=== PATIENT | male | born 1950 | race Caucasian/White ===

== ENCOUNTER → 2018-03-18 11:28 | Outpatient (CLI) | payer MEDICARE, BC, SELFPAY ==
[2018-03-18 13:30] LABS: Add Manual Diff / Slide Review NO; Basophils Percent Auto 0.3 % (0-2); Eosinophils Percent Auto 1.4 % (2-4); Hematocrit 41.4 % (41-53); Hemoglobin 14.3 g/dL (13.5-17.5); Lymphocytes Percent Auto 24.6 % (25-40); Mean Corpuscular HGB Conc 34.4 % (30-36); Mean Corpuscular Hemoglobin 32.1 PG (26-34); Mean Corpuscular Volume 93.1 fL (80-100); Monocytes Percent Auto 7.8 % (3-14); Neutrophils Absolute Auto 3800 /uL (3000-5900); Neutrophils Percent Auto 65.9 % (50-75); Platelet Count 187 X10^3/uL (150-400); Red Blood Cell Count 4.45 X10^6/uL (4.5-5.9); Red Cell Distribution Width 13.9 % (11.6-14.8); White Blood Cell Count 5.8 X10^3/uL (4.5-11.0)
[2018-03-18 14:17] LABS: Alanine Aminotransferase 34 IU/L (21-72); Albumin 4.5 g/dL (3.5-5.0); Alkaline Phosphatase 65 U/L (38-126); Aspartate Aminotransferase 23 IU/L (17-59); BUN Creatinine Ratio 17.8 (6-22); Bilirubin Total 0.5 mg/dL (0.2-1.3); Blood Urea Nitrogen 16 mg/dL (9-20); C-Reactive Protein Quant < 0.5 mg/dL (<1.0); Calcium 9.2 mg/dL (8.4-10.2); Carbon Dioxide 29 mmol/L (22-32); Chloride 102 mmol/L (98-107); Erythrocyte Sedimentation Rate 1 MM/HR (0-15); Estimated Glomerular Filt Rate > 60.0 mL/min (>60); Globulin 2.3 g/dL (1.7-4.1); Glucose 84 mg/dL (80-110); HEMOLYSIS < 15 (0-50); Potassium 4.8 mmol/L (3.4-5.1); Sodium 140 mmol/L (137-145); Total Protein 6.8 g/dL (6.3-8.2)
== END ==
PROVIDERS: PCP Internal Medicine; Visit Provider Internal Medicine
DX: R22.2 Localized swelling, mass and lump, trunk (principal)
CPT/HCPCS: 36415; 80053; 85025; 85651; 86140

== ENCOUNTER → 2018-03-23 11:08 | Outpatient (CLI) | payer MEDICARE, BC, SELFPAY ==
--- NOTE | 2018-03-23 11:10 | DI.CT.S_ITS ---
PROCEDURE: CT ABDOMEN W CON INDICATIONS: abd wall mass TECHNIQUE: After the administration of intravenous contrast, 5 mm thick sections acquired from the diaphragm to the iliac crests. 5 mm coronal and sagittal reformats were performed. For radiation dose reduction, the following was used: automated exposure control, adjustment of mA and/or kV according to patient size. COMPARISON: None. FINDINGS: Image quality: Excellent. Lung bases: Lung bases are clear. Heart size is normal. Solid organs: Liver is normal in size and enhancement. Note is made of a 1.8 cm hepatic water density cyst seen on series 2 image 37. Gallbladder appears normal. Biliary system is non dilated. Pancreas enhances normally. Spleen is normal in size and enhancement. No adrenal nodules. Kidneys demonstrate normal size and enhancement, without hydronephrosis. Peritoneum and bowel: Bowel loops demonstrate normal wall thickness and caliber. No free fluid or air. Nodes and vessels: No retroperitoneal or mesenteric adenopathy by size criteria. Aorta and inferior vena cava are normal in size. Miscellaneous: No ventral hernias. At the right upper quadrant anterolaterally ACT surface marker was placed on the skin surface indicating the area of patient's clinical concern. A cutaneous or subcutaneous mass in this area is not found. Morphology of the body wall musculature is within normal limits in this area. No omental or visceral herniation at the body wall margin is identified. IMPRESSION: No underlying lipoma, body wall herniation, or body wall mass is identified in the area of current clinical concern at the right upper quadrant adjacent to the CT surface marker placed with the patient's assistance in localizing the concern. Normal striations of the body wall musculature are found, no area of underlying infection or neoplasm is identified. Dictated by: Jovany Díaz M.D. on 03/23/2018 at 12:23 Approved by: Jovany Díaz M.D. on 03/23/2018 at 12:26
== END ==
PROVIDERS: PCP Internal Medicine; Visit Provider Internal Medicine
DX: R22.2 Localized swelling, mass and lump, trunk (principal)
CPT/HCPCS: 74160; Q9967

== ENCOUNTER 2019-01-06 14:30 | Outpatient (RCR) | payer MEDICARE, OTHER, BC, SELFPAY ==
--- NOTE | 2018-01-07 07:00 | PT.OIE ---
Current Diagnoses Dizziness and giddiness (01/06/18) Past Medical History (Last Updated 01/06/18 @ 13:38 by Oneyda Daley, PT) Hernia (Acute) Plantar fasciitis of right foot (Acute) Skin cancer (Acute) Provider Visit Care Team Role Provider Type Sushant Boyle MD Primary Care Provider Physician Specialty: Internal Medicine Address: [address] [place] [address], [id number] Email: [email or web address] Leonard Danielle MD Attending Provider Physician Specialty: Ear, Nose, Throat Address: [address] [place] [address], [id number] Email: Physical Therapy Initial Evaluation PT-OP-A Visit Information Start: 01/06/18 07:25 Freq: Status: Active Protocol: Document 01/06/18 08:15 AMB (Rec: 01/06/18 15:27 AMB [email or web address]) Out-Patient Physical Therapy Visit Information Visit Information Visit Type Initial Evaluation Visit Note 60 visits per calendar year, 1 used previously. 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 No BPPV currently but a feeling of spinning and being off balance has continued a few times a week. Sometimes he can move his head and be fine, sometimes it causes dizzines. 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 Treatment Goals Patient/Caregiver Goals Reduce dizziness Prior Functional Status Baseline Function- ADL's Independent Baseline Function- Mobility Independent Current Functional Impairments (Reported) Functional Limitations- ADL's Unable to go up on ladders Personal Factors Other Personal Factors That May Effect Retiring soon Therapy/Recovery PT-OP-C Subjective Start: 01/06/18 07:25 Freq: Status: Active Protocol: Document 01/06/18 08:15 AMB (Rec: 01/06/18 08:26 AMB [id number]) OP-PT Subjective Patient Comments Patient Comments Dizziness episodes 3-4x/ week. Looking down, looking up, turning to the side all can increase dizziness for 5-10 seconds. Feels off balance and spinny. No falls in the last 6 months, has had some near falls. Avoids ladders. Patient Questionnaires ABC- Activity Specific Balance Confidence Scale ABC Score 76 ABC Functional Impairment 60 to <80% Impaired (Score 21- 40) Dizziness Handicap Inventory DHI Score 50 DHI Functional Impairment 40 to 59% Impaired (Score 40- 59) PT-OP-D Balance Start: 01/06/18 07:25 Freq: Status: Active Protocol: Document 01/06/18 08:15 AMB (Rec: 01/06/18 15:37 AMB [email or web address]) Balance Tests Single Limb Standing Single Limb- Right 10 seconds Single Limb- Left 10 seconds Semi-Tandem Standing Semi-Tandem Standing Balance EO 30 seconds. EO HT 30 seconds but dizzy. EC 20 seconds dizzy. PT-OP-E Functional Tests Start: 01/06/18 07:25 Freq: Status: Active Protocol: Document 01/06/18 08:15 AMB (Rec: 01/06/18 15:46 AMB [email or web address]) Functional Tests Dynamic Gait Index (DGI) Score 21 DGI Impairment Rating 1 to <20% Impaired (Score 20- 23) PT-OP-O Vestibular Start: 01/06/18 07:25 Freq: Status: Active Protocol: Document 01/06/18 08:15 AMB (Rec: 01/06/18 15:33 AMB [email or web address]) Vestibular Assessment Visual Testing Smooth Pursuits Horizontal WFL Smooth Pursuits Vertical WFL Saccades Horizontal WFL Saccades Vertical WFL Thrust Head Positive Bilateral Convergence Test WNL DVA (Line Degradation) 2 Positional Testing Cervical Vertigo Test Negative PT-OP-Q Treatments Start: 01/06/18 07:25 Freq: Status: Active Protocol: Document 01/06/18 08:15 AMB (Rec: 01/06/18 15:43 AMB [email or web address]) Neuro Re-Education Treatment Other Activities 2 Details NBOS HT 1 Details Stride stance bow with head turn Reps/Duration 6 PT-OP-T Assessment and Plan Start: 01/06/18 07:25 Freq: Status: Active Protocol: Document 01/06/18 08:15 AMB (Rec: 01/07/18 07:00 AMB [email or web address]) Physical Therapy Assessment Rehab Potential Rehabilitation Potential Good Evaluation Complexity Number of Personal Factors/Comorbidities 1-2 Number of Body Systems Impaired 1-2 Clinical Presentation at Evaluation Stable Impairments Impairments Balance Vestibular Goals 2 Impairment Balance Short Term Goal (STG) The patient will improve his DGI to 23/24. STG Duration 4 weeks Prison Goal (LTG) The patient will improve his single leg stance balance to 15 seconds. LTG Duration 8 weeks 1 Impairment Dizziness Short Term Goal (STG) The patient will walk with horizontal head turns without dizziness. STG Duration 4 weeks Prison Goal (LTG) The patient will perform a stand pivot turn without increasing dizziness. Assessment Summary Assessment The patient returns to the clinic for vestibular rehab. He does not currenty have BPPV , but has had intermittent dizziness with head movement since the successful treatment of his BPPV. He will benefit from a vestibular rehab program to compensate for his continued dizziness. Physical Therapy Plan Frequency and Duration Frequency of Treatment 1x/Week Duration of Treatment 8 weeks Plan of Care Start Date 01/06/18 Plan of Care End Date 03/03/18 Therapeutic Interventions Therapeutic Interventions Balance Training Home Exercise Program Manual Therapy Neuromuscular Re-education Self-Care/Home Management Therapeutic Activities Therapeutic Exercises Vestibular Rehabilitation Next Visit Focus/Plan Next Note Type Treatment Note Please Sign and Return: I have reviewed this Plan of Care and certify that the skilled therapy services above are required to meet the patient???s needs. Physician Signature Date Printed Name and Credentials Clinical Instructor Signature Printed Name and Credentials
--- NOTE | 2018-01-14 15:51 | PT.OTN ---
Current Diagnoses Dizziness and giddiness (01/14/18) Physical Therapy Treatment Note PT-OP-A Visit Information Start: 01/06/18 07:25 Freq: Status: Active Protocol: Document 01/14/18 13:45 AMB (Rec: 01/14/18 13:57 AMB [id number]) Out-Patient Physical Therapy Visit Information Visit Information Visit Type Treatment Note Visit Start Time 13:45 Visit Stop Time 14:30 Visit Number 2 Evaluation Information Evaluation Date 01/06/18 PT-OP-B Current Condition Start: 01/06/18 07:25 Freq: Status: Active Protocol: Document 01/06/18 08:15 AMB (Rec: 01/06/18 15:25 AMB [email or web address]) Current Condition History of Current Condition History of Current Condition 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 No BPPV currently but a feeling of spinning and being off balance has continued a few times a week. Sometimes he can move his head and be fine, sometimes it causes dizzines. 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 Treatment Goals Patient/Caregiver Goals Reduce dizziness Prior Functional Status Baseline Function- ADL's Independent Baseline Function- Mobility Independent Current Functional Impairments (Reported) Functional Limitations- ADL's Unable to go up on ladders Personal Factors Other Personal Factors That May Effect Retiring soon Therapy/Recovery PT-OP-C Subjective Start: 01/06/18 07:25 Freq: Status: Active Protocol: Document 01/14/18 13:45 AMB (Rec: 01/14/18 14:13 AMB [id number]) OP-PT Subjective Patient Comments Patient Comments Somewhat dizzy yesterday, looking to the left when sitting down. PT-OP-D Balance Start: 01/06/18 07:25 Freq: Status: Active Protocol: Document 01/06/18 08:15 AMB (Rec: 01/06/18 15:37 AMB [email or web address]) Balance Tests Single Limb Standing Single Limb- Right 10 seconds Single Limb- Left 10 seconds Semi-Tandem Standing Semi-Tandem Standing Balance EO 30 seconds. EO HT 30 seconds but dizzy. EC 20 seconds dizzy. PT-OP-E Functional Tests Start: 01/06/18 07:25 Freq: Status: Active Protocol: Document 01/06/18 08:15 AMB (Rec: 01/06/18 15:46 AMB [email or web address]) Functional Tests Dynamic Gait Index (DGI) Score 21 DGI Impairment Rating 1 to <20% Impaired (Score 20- 23) PT-OP-O Vestibular Start: 01/06/18 07:25 Freq: Status: Active Protocol: Document 01/06/18 08:15 AMB (Rec: 01/06/18 15:33 AMB [email or web address]) Vestibular Assessment Visual Testing Smooth Pursuits Horizontal WFL Smooth Pursuits Vertical WFL Saccades Horizontal WFL Saccades Vertical WFL Thrust Head Positive Bilateral Convergence Test WNL DVA (Line Degradation) 2 Positional Testing Cervical Vertigo Test Negative PT-OP-Q Treatments Start: 01/06/18 07:25 Freq: Status: Active Protocol: Document 01/14/18 13:45 AMB (Rec: 01/14/18 15:51 AMB [email or web address]) Neuro Re-Education Treatment Other Activities 5 Details gait with head turns Comments horizontal, vertical, diagonal 4 Details VOR2 Comments horizontal and diagonal semi tandem stance 3 Details VOR1 Comments semi tandem, NBOS foam, added background movement 2 Details NBOS HT 1 Details Stride stance bow with head turn Reps/Duration 6 PT-OP-T Assessment and Plan Start: 01/06/18 07:25 Freq: Status: Active Protocol: Document 01/14/18 13:45 AMB (Rec: 01/14/18 15:51 AMB [email or web address]) Physical Therapy Assessment Assessment Summary Assessment The patient needed rest breaks , but was able to tolerate all exercises well. Physical Therapy Plan Frequency and Duration Frequency of Treatment 1x/Week Duration of Treatment 8 weeks Plan of Care Start Date 01/06/18 Plan of Care End Date 03/03/18 Next Visit Focus/Plan Next Note Type Treatment Note Next Visit Plan Progress challenge, speed of head turns Please Sign and Return: I have reviewed this Plan of Care and certify that the skilled therapy services above are required to meet the patient?s needs. Physician Signature Date Printed Name and Credentials Clinical Instructor Signature Printed Name and Credentials
--- NOTE | 2018-01-20 06:59 | PT.OTN ---
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 No BPPV currently but a feeling of spinning and being off balance has continued a few times a week. Sometimes he can move his head and be fine, sometimes it causes dizzines. 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 Not sure if he was turning his head to not. He has difficulty doing the walking in the hallway exercise, as his hallways is not very long. PT-OP-D Balance Start: 01/06/18 07:25 Freq: Status: Active Protocol: Document 01/06/18 08:15 AMB (Rec: 01/06/18 15:37 AMB [email or web address]) Balance Tests Single Limb Standing Single Limb- Right 10 seconds Single Limb- Left 10 seconds Semi-Tandem Standing Semi-Tandem Standing Balance EO 30 seconds. EO HT 30 seconds but dizzy. EC 20 seconds dizzy. PT-OP-E Functional Tests Start: 01/06/18 07:25 Freq: Status: Active Protocol: Document 01/06/18 08:15 AMB (Rec: 01/06/18 15:46 AMB [email or web address]) Functional Tests Dynamic Gait Index (DGI) Score 21 DGI Impairment Rating 1 to <20% Impaired (Score 20- 23) PT-OP-O Vestibular Start: 01/06/18 07:25 Freq: Status: Active Protocol: Document 01/06/18 08:15 AMB (Rec: 01/06/18 15:33 AMB [email or web address]) Vestibular Assessment Visual Testing Smooth Pursuits Horizontal WFL Smooth Pursuits Vertical WFL Saccades Horizontal WFL Saccades Vertical WFL Thrust Head Positive Bilateral Convergence Test WNL DVA (Line Degradation) 2 Positional Testing Cervical Vertigo Test Negative PT-OP-Q Treatments Start: 01/06/18 07:25 Freq: Status: Active Protocol: Document 01/19/18 09:00 AMB (Rec: 01/20/18 06:59 AMB [email or web address]) Neuro Re-Education Treatment Other Activities 5 Details gait with head turns Comments horizontal, vertical, diagonal 4 Details VOR2 Comments horizontal and diagonal semi tandem stance 3 Details VOR1 Comments semi tandem, NBOS foam, 1 Details Stride stance bow with head turn Reps/Duration 10 PT-OP-T Assessment and Plan Start: 01/06/18 07:25 Freq: Status: Active Protocol: Document 01/19/18 09:00 AMB (Rec: 01/20/18 06:59 AMB [email or web address]) Physical Therapy Assessment Assessment Summary Assessment Less need for rest breaks, but forward bend with head turns remains quite challenging. Physical Therapy Plan Frequency and Duration Frequency of Treatment 1x/Week Duration of Treatment 8 weeks Plan of Care Start Date 01/06/18 Plan of Care End Date 03/03/18 Next Visit Focus/Plan Next Note Type Treatment Note Next Visit Plan Progress as tolerated Please Sign and Return: I have reviewed this Plan of Care and certify that the skilled therapy services above are required to meet the patient?s needs. Physician Signature Date Printed Name and Credentials Clinical Instructor Signature Printed Name and Credentials
--- NOTE | 2018-01-26 12:58 | PT.OTN ---
Current Diagnoses Dizziness and giddiness (01/26/18) Physical Therapy Treatment Note PT-OP-A Visit Information Start: 01/06/18 07:25 Freq: Status: Active Protocol: Document 01/26/18 09:00 AMB (Rec: 01/26/18 09:03 AMB [id number]) Out-Patient Physical Therapy Visit Information Visit Information Visit Type Treatment Note Visit Start Time 09:00 Visit Stop Time 09:45 Visit Number 4 Evaluation Information Evaluation Date 01/06/18 PT-OP-B Current Condition Start: 01/06/18 07:25 Freq: Status: Active Protocol: Document 01/06/18 08:15 AMB (Rec: 01/06/18 15:25 AMB [email or web address]) Current Condition History of Current Condition History of Current Condition 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 No BPPV currently but a feeling of spinning and being off balance has continued a few times a week. Sometimes he can move his head and be fine, sometimes it causes dizzines. 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 PT-OP-D Balance Start: 01/06/18 07:25 Freq: Status: Active Protocol: Document 01/06/18 08:15 AMB (Rec: 01/06/18 15:37 AMB [email or web address]) Balance Tests Single Limb Standing Single Limb- Right 10 seconds Single Limb- Left 10 seconds Semi-Tandem Standing Semi-Tandem Standing Balance EO 30 seconds. EO HT 30 seconds but dizzy. EC 20 seconds dizzy. PT-OP-E Functional Tests Start: 01/06/18 07:25 Freq: Status: Active Protocol: Document 01/06/18 08:15 AMB (Rec: 01/06/18 15:46 AMB [email or web address]) Functional Tests Dynamic Gait Index (DGI) Score 21 DGI Impairment Rating 1 to <20% Impaired (Score 20- 23) PT-OP-O Vestibular Start: 01/06/18 07:25 Freq: Status: Active Protocol: Document 01/06/18 08:15 AMB (Rec: 01/06/18 15:33 AMB [email or web address]) Vestibular Assessment Visual Testing Smooth Pursuits Horizontal WFL Smooth Pursuits Vertical WFL Saccades Horizontal WFL Saccades Vertical WFL Thrust Head Positive Bilateral Convergence Test WNL DVA (Line Degradation) 2 Positional Testing Cervical Vertigo Test Negative PT-OP-Q Treatments Start: 01/06/18 07:25 Freq: Status: Active Protocol: Document 01/26/18 09:00 AMB (Rec: 01/26/18 12:57 AMB [email or web address]) Neuro Re-Education Treatment Other Activities 5 Details gait with head turns Comments horizontal, vertical, diagonal 4 Details VOR2 Comments horizontal and diagonal semi tandem stance 3 Details VOR1 Comments semi tandem, NBOS foam, 1 Details Stride stance bow with head turn Reps/Duration 10 PT-OP-T Assessment and Plan Start: 01/06/18 07:25 Freq: Status: Active Protocol: Document 01/26/18 09:00 AMB (Rec: 01/26/18 12:57 AMB [email or web address]) Physical Therapy Assessment Goals 2 Impairment Balance Short Term Goal (STG) The patient will improve his DGI to 23/24. STG Duration 4 weeks House Detective Goal (LTG) The patient will improve his single leg stance balance to 15 seconds. LTG Duration 8 weeks 1 Impairment Dizziness Short Term Goal (STG) The patient will walk with horizontal head turns without dizziness. STG Duration 4 weeks Halfway Goal (LTG) The patient will perform a stand pivot turn without increasing dizziness. Assessment Summary Assessment Pt did well today, but dizzy spells continue, did need rest break after a quick turn. Physical Therapy Plan Frequency and Duration Frequency of Treatment 1x/Week Duration of Treatment 8 weeks Plan of Care Start Date 01/06/18 Plan of Care End Date 03/03/18 Next Visit Focus/Plan Next Note Type Treatment Note Next Visit Plan Work on quick turns Please Sign and Return: I have reviewed this Plan of Care and certify that the skilled therapy services above are required to meet the patient?s needs. Physician Signature Date Printed Name and Credentials Clinical Instructor Signature Printed Name and Credentials
--- NOTE | 2018-02-14 15:35 | PT.OTN ---
Current Diagnoses Dizziness and giddiness (02/14/18) Physical Therapy Treatment Note PT-OP-A Visit Information Start: 01/06/18 07:25 Freq: Status: Active Protocol: Document 02/14/18 09:00 AMB (Rec: 02/14/18 09:08 AMB [id number]) Out-Patient Physical Therapy Visit Information Visit Information Visit Type Treatment Note Visit Start Time 09:00 Visit Stop Time 09:45 Visit Number 5 Evaluation Information Evaluation Date 01/06/18 PT-OP-B Current Condition Start: 01/06/18 07:25 Freq: Status: Active Protocol: Document 01/06/18 08:15 AMB (Rec: 01/06/18 15:25 AMB [email or web address]) Current Condition History of Current Condition History of Current Condition 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 No BPPV currently but a feeling of spinning and being off balance has continued a few times a week. Sometimes he can move his head and be fine, sometimes it causes dizzines. 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 Treatment Goals Patient/Caregiver Goals Reduce dizziness Prior Functional Status Baseline Function- ADL's Independent Baseline Function- Mobility Independent Current Functional Impairments (Reported) Functional Limitations- ADL's Unable to go up on ladders Personal Factors Other Personal Factors That May Effect Retiring soon Therapy/Recovery PT-OP-C Subjective Start: 01/06/18 07:25 Freq: Status: Active Protocol: Document 02/14/18 09:00 AMB (Rec: 02/14/18 09:08 AMB [id number]) OP-PT Subjective Patient Comments Patient Comments Was able to do exercises over lat 2 weeks, sx maybe less intense but still there. PT-OP-D Balance Start: 01/06/18 07:25 Freq: Status: Active Protocol: Document 01/06/18 08:15 AMB (Rec: 01/06/18 15:37 AMB [email or web address]) Balance Tests Single Limb Standing Single Limb- Right 10 seconds Single Limb- Left 10 seconds Semi-Tandem Standing Semi-Tandem Standing Balance EO 30 seconds. EO HT 30 seconds but dizzy. EC 20 seconds dizzy. PT-OP-E Functional Tests Start: 01/06/18 07:25 Freq: Status: Active Protocol: Document 01/06/18 08:15 AMB (Rec: 01/06/18 15:46 AMB [email or web address]) Functional Tests Dynamic Gait Index (DGI) Score 21 DGI Impairment Rating 1 to <20% Impaired (Score 20- 23) PT-OP-O Vestibular Start: 01/06/18 07:25 Freq: Status: Active Protocol: Document 01/06/18 08:15 AMB (Rec: 01/06/18 15:33 AMB [email or web address]) Vestibular Assessment Visual Testing Smooth Pursuits Horizontal WFL Smooth Pursuits Vertical WFL Saccades Horizontal WFL Saccades Vertical WFL Thrust Head Positive Bilateral Convergence Test WNL DVA (Line Degradation) 2 Positional Testing Cervical Vertigo Test Negative PT-OP-Q Treatments Start: 01/06/18 07:25 Freq: Status: Active Protocol: Document 02/14/18 09:00 AMB (Rec: 02/14/18 09:18 AMB [id number]) Neuro Re-Education Treatment Other Activities 6 Details Foam Comments Blue stride stance 5 Details gait with head turns Comments horizontal, vertical, diagonal 4 Details VOR2 Comments horizontal and diagonal semi tandem stance 3 Details VOR1 Comments semi tandem, NBOS foam, 2 Details single leg stance Comments 3 step with HT 1 Details Stride stance bow with head turn Reps/Duration 10 PT-OP-T Assessment and Plan Start: 01/06/18 07:25 Freq: Status: Active Protocol: Document 02/14/18 09:00 AMB (Rec: 02/14/18 11:02 AMB [id number]) Physical Therapy Plan Next Visit Focus/Plan Next Note Type Treatment Note Next Visit Plan Progress HEP
--- NOTE | 2018-02-22 09:45 | PT.OTN ---
Current Diagnoses Dizziness and giddiness (02/22/18) Physical Therapy Treatment Note PT-OP-A Visit Information Start: 01/06/18 07:25 Freq: Status: Active Protocol: Document 02/22/18 09:00 AMB (Rec: 02/22/18 09:09 AMB [id number]) Out-Patient Physical Therapy Visit Information Visit Information Visit Type Treatment Note Visit Start Time 09:00 Visit Stop Time 09:45 Visit Number 6 Evaluation Information Evaluation Date 01/06/18 PT-OP-B Current Condition Start: 01/06/18 07:25 Freq: Status: Active Protocol: Document 01/06/18 08:15 AMB (Rec: 01/06/18 15:25 AMB [email or web address]) Current Condition History of Current Condition History of Current Condition 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 No BPPV currently but a feeling of spinning and being off balance has continued a few times a week. Sometimes he can move his head and be fine, sometimes it causes dizzines. 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 Treatment Goals Patient/Caregiver Goals Reduce dizziness Prior Functional Status Baseline Function- ADL's Independent Baseline Function- Mobility Independent Current Functional Impairments (Reported) Functional Limitations- ADL's Unable to go up on ladders Personal Factors Other Personal Factors That May Effect Retiring soon Therapy/Recovery PT-OP-C Subjective Start: 01/06/18 07:25 Freq: Status: Active Protocol: Document 02/22/18 09:00 AMB (Rec: 02/22/18 09:09 AMB [id number]) OP-PT Subjective Patient Comments Patient Comments Pt reports one instance of dizziness in the last week, brief in nature, with turning head quickly to the left. PT-OP-D Balance Start: 01/06/18 07:25 Freq: Status: Active Protocol: Document 01/06/18 08:15 AMB (Rec: 01/06/18 15:37 AMB [email or web address]) Balance Tests Single Limb Standing Single Limb- Right 10 seconds Single Limb- Left 10 seconds Semi-Tandem Standing Semi-Tandem Standing Balance EO 30 seconds. EO HT 30 seconds but dizzy. EC 20 seconds dizzy. PT-OP-E Functional Tests Start: 01/06/18 07:25 Freq: Status: Active Protocol: Document 01/06/18 08:15 AMB (Rec: 01/06/18 15:46 AMB [email or web address]) Functional Tests Dynamic Gait Index (DGI) Score 21 DGI Impairment Rating 1 to <20% Impaired (Score 20- 23) PT-OP-O Vestibular Start: 01/06/18 07:25 Freq: Status: Active Protocol: Document 01/06/18 08:15 AMB (Rec: 01/06/18 15:33 AMB [email or web address]) Vestibular Assessment Visual Testing Smooth Pursuits Horizontal WFL Smooth Pursuits Vertical WFL Saccades Horizontal WFL Saccades Vertical WFL Thrust Head Positive Bilateral Convergence Test WNL DVA (Line Degradation) 2 Positional Testing Cervical Vertigo Test Negative PT-OP-Q Treatments Start: 01/06/18 07:25 Freq: Status: Active Protocol: Document 02/22/18 09:00 AMB (Rec: 02/22/18 09:30 AMB [id number]) Neuro Re-Education Treatment Other Activities 6 Details Foam Comments Blue stride stance 5 Details gait with head turns Comments horizontal, vertical, diagonal 4 Details VOR2 Comments horizontal and diagonal semi tandem stance 3 Details VOR1 Comments semi tandem, NBOS foam, 1 Details Stride stance bow with head turn Reps/Duration 10 PT-OP-T Assessment and Plan Start: 01/06/18 07:25 Freq: Status: Active Protocol: Document 02/22/18 09:00 AMB (Rec: 02/22/18 09:41 AMB [id number]) Physical Therapy Assessment Assessment Summary Assessment Pt tolerated increased speed of headturns well today. Physical Therapy Plan Next Visit Focus/Plan Next Note Type Treatment Note Next Visit Plan Progress HEP
--- NOTE | 2018-03-21 12:54 | PT.OTN ---
Current Diagnoses Dizziness and giddiness (03/21/18) Physical Therapy Treatment Note PT-OP-A Visit Information Start: 01/06/18 07:25 Freq: Status: Active Protocol: Document 03/21/18 11:15 AMB (Rec: 03/21/18 12:44 AMB [email or web address]) Out-Patient Physical Therapy Visit Information Visit Information Visit Type Progress Note Visit Start Time 11:15 Visit Stop Time 12:00 Visit Number 7 Evaluation Information Evaluation Date 01/06/18 PT-OP-B Current Condition Start: 01/06/18 07:25 Freq: Status: Active Protocol: Document 01/06/18 08:15 AMB (Rec: 01/06/18 15:25 AMB [email or web address]) Current Condition History of Current Condition History of Current Condition 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 No BPPV currently but a feeling of spinning and being off balance has continued a few times a week. Sometimes he can move his head and be fine, sometimes it causes dizzines. 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 Treatment Goals Patient/Caregiver Goals Reduce dizziness Prior Functional Status Baseline Function- ADL's Independent Baseline Function- Mobility Independent Current Functional Impairments (Reported) Functional Limitations- ADL's Unable to go up on ladders Personal Factors Other Personal Factors That May Effect Retiring soon Therapy/Recovery PT-OP-C Subjective Start: 01/06/18 07:25 Freq: Status: Active Protocol: Document 03/21/18 11:15 AMB (Rec: 03/21/18 12:44 AMB [email or web address]) OP-PT Subjective Patient Comments Patient Comments Pt reports one instance of dizziness, feels that the frequency of dizziness may be improving. PT-OP-D Balance Start: 01/06/18 07:25 Freq: Status: Active Protocol: Document 01/06/18 08:15 AMB (Rec: 01/06/18 15:37 AMB [email or web address]) Balance Tests Single Limb Standing Single Limb- Right 10 seconds Single Limb- Left 10 seconds Semi-Tandem Standing Semi-Tandem Standing Balance EO 30 seconds. EO HT 30 seconds but dizzy. EC 20 seconds dizzy. PT-OP-E Functional Tests Start: 01/06/18 07:25 Freq: Status: Active Protocol: Document 01/06/18 08:15 AMB (Rec: 01/06/18 15:46 AMB [email or web address]) Functional Tests Dynamic Gait Index (DGI) Score 21 DGI Impairment Rating 1 to <20% Impaired (Score 20- 23) PT-OP-O Vestibular Start: 01/06/18 07:25 Freq: Status: Active Protocol: Document 01/06/18 08:15 AMB (Rec: 01/06/18 15:33 AMB [email or web address]) Vestibular Assessment Visual Testing Smooth Pursuits Horizontal WFL Smooth Pursuits Vertical WFL Saccades Horizontal WFL Saccades Vertical WFL Thrust Head Positive Bilateral Convergence Test WNL DVA (Line Degradation) 2 Positional Testing Cervical Vertigo Test Negative PT-OP-Q Treatments Start: 01/06/18 07:25 Freq: Status: Active Protocol: Document 03/21/18 11:15 AMB (Rec: 03/21/18 12:44 AMB [email or web address]) Neuro Re-Education Treatment Other Activities 7 Details gait with pivot turn 6 Details Foam Comments Blue stride stance 5 Details gait with head turns Comments horizontal, vertical, diagonal 4 Details VOR2 Comments horizontal and diagonal semi tandem stance 3 Details VOR1 Comments semi tandem, NBOS foam, 2 Details single leg stance Comments 3 step with HT 1 Details Stride stance bow with head turn Reps/Duration 10 PT-OP-T Assessment and Plan Start: 01/06/18 07:25 Freq: Status: Active Protocol: Document 03/21/18 11:15 AMB (Rec: 03/21/18 11:22 AMB [id number]) Physical Therapy Assessment Goals 2 Impairment Balance Short Term Goal (STG) The patient will improve his DGI to 23/24.-- NOT YET MET STG Duration 4 weeks Detention Goal (LTG) The patient will improve his single leg stance balance to 15 seconds. MET LTG Duration 8 weeks 1 Impairment Dizziness Short Term Goal (STG) The patient will walk with horizontal head turns without dizziness. PARTIALLY MET STG Duration 4 weeks Marker Machine Goal (LTG) The patient will perform a stand pivot turn without increasing dizziness. PARTIALLY MET Assessment Summary Assessment Spent time adjusting the patient's HEP. Progressed VOR to stride stance for HEP. Diagonal head turns continue to be challenging. Overall the patient is showing progress, but it is slow. Overall decreasing incidence of dizziness, but head turn and eyes closed exercises continue to increase his dizziness easily. Physical Therapy Plan Frequency and Duration Frequency of Treatment 1x/Week Duration of Treatment 6 weeks Plan of Care Start Date 03/21/18 Plan of Care End Date 05/02/18 Therapeutic Interventions Therapeutic Interventions Balance Training Gait Training Home Exercise Program Neuromuscular Re-education Self-Care/Home Management Therapeutic Activities Therapeutic Exercises Next Visit Focus/Plan Next Note Type Treatment Note Next Visit Plan Progress HEP
--- NOTE | 2018-03-21 12:55 | PT.OPPOC ---
Current Diagnoses Dizziness and giddiness (03/21/18) Provider Visit Care Team Role Provider Type Sushant Boyle MD Primary Care Provider Physician Specialty: Internal Medicine Address: [address] [place] [address], [phone] Email: [email or web address] Leonard Danielle MD Attending Provider Physician Specialty: Ear, Nose, Throat Address: [address] [place] [address], [id number] Email: Plan Of Care PT-OP-T Assessment and Plan Start: 01/06/18 07:25 Freq: Status: Active Protocol: Document 03/21/18 11:15 AMB (Rec: 03/21/18 11:22 AMB [id number]) Physical Therapy Assessment Goals 2 Impairment Balance Short Term Goal (STG) The patient will improve his DGI to 23/24.-- NOT YET MET STG Duration 4 weeks Custodial Goal (LTG) The patient will improve his single leg stance balance to 15 seconds. MET LTG Duration 8 weeks 1 Impairment Dizziness Short Term Goal (STG) The patient will walk with horizontal head turns without dizziness. PARTIALLY MET STG Duration 4 weeks Game Developer Goal (LTG) The patient will perform a stand pivot turn without increasing dizziness. PARTIALLY MET Assessment Summary Assessment Spent time adjusting the patient's HEP. Progressed VOR to stride stance for HEP. Diagonal head turns continue to be challenging. Overall the patient is showing progress, but it is slow. Overall decreasing incidence of dizziness, but head turn and eyes closed exercises continue to increase his dizziness easily. Physical Therapy Plan Frequency and Duration Frequency of Treatment 1x/Week Duration of Treatment 6 weeks Plan of Care Start Date 03/21/18 Plan of Care End Date 05/02/18 Therapeutic Interventions Therapeutic Interventions Balance Training Gait Training Home Exercise Program Neuromuscular Re-education Self-Care/Home Management Therapeutic Activities Therapeutic Exercises Next Visit Focus/Plan Next Note Type Treatment Note Next Visit Plan Progress HEP Plan of Care Dates Plan of Care Start Date 03/21/18 Plan of Care End Date 05/02/18 Please Sign and Return: I have reviewed this Plan of Care and certify that the skilled therapy services above are required to meet the patient?s needs. Physician Signature Date Printed Name and Credentials Clinical Instructor Signature Printed Name and Credentials
--- NOTE | 2018-04-11 13:37 | PT.OTN ---
Current Diagnoses Dizziness and giddiness (04/11/18) Physical Therapy Treatment Note PT-OP-A Visit Information Start: 01/06/18 07:25 Freq: Status: Active Protocol: Document 04/11/18 11:15 AMB (Rec: 04/11/18 13:35 AMB [email or web address]) Out-Patient Physical Therapy Visit Information Visit Information Visit Type Treatment Note Visit Start Time 11:15 Visit Stop Time 12:00 Visit Number 8 Evaluation Information Evaluation Date 01/06/18 PT-OP-B Current Condition Start: 01/06/18 07:25 Freq: Status: Active Protocol: Document 01/06/18 08:15 AMB (Rec: 01/06/18 15:25 AMB [email or web address]) Current Condition History of Current Condition History of Current Condition 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 No BPPV currently but a feeling of spinning and being off balance has continued a few times a week. Sometimes he can move his head and be fine, sometimes it causes dizzines. 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 Treatment Goals Patient/Caregiver Goals Reduce dizziness Prior Functional Status Baseline Function- ADL's Independent Baseline Function- Mobility Independent Current Functional Impairments (Reported) Functional Limitations- ADL's Unable to go up on ladders Personal Factors Other Personal Factors That May Effect Retiring soon Therapy/Recovery PT-OP-C Subjective Start: 01/06/18 07:25 Freq: Status: Active Protocol: Document 04/11/18 11:15 AMB (Rec: 04/11/18 13:35 AMB [email or web address]) OP-PT Subjective Patient Comments Patient Comments Pt feels overall dizzy spells are becoming less often and less intense about 1x/week. PT-OP-D Balance Start: 01/06/18 07:25 Freq: Status: Active Protocol: Document 01/06/18 08:15 AMB (Rec: 01/06/18 15:37 AMB [email or web address]) Balance Tests Single Limb Standing Single Limb- Right 10 seconds Single Limb- Left 10 seconds Semi-Tandem Standing Semi-Tandem Standing Balance EO 30 seconds. EO HT 30 seconds but dizzy. EC 20 seconds dizzy. PT-OP-E Functional Tests Start: 01/06/18 07:25 Freq: Status: Active Protocol: Document 01/06/18 08:15 AMB (Rec: 01/06/18 15:46 AMB [email or web address]) Functional Tests Dynamic Gait Index (DGI) Score 21 DGI Impairment Rating 1 to <20% Impaired (Score 20- 23) PT-OP-O Vestibular Start: 01/06/18 07:25 Freq: Status: Active Protocol: Document 01/06/18 08:15 AMB (Rec: 01/06/18 15:33 AMB [email or web address]) Vestibular Assessment Visual Testing Smooth Pursuits Horizontal WFL Smooth Pursuits Vertical WFL Saccades Horizontal WFL Saccades Vertical WFL Thrust Head Positive Bilateral Convergence Test WNL DVA (Line Degradation) 2 Positional Testing Cervical Vertigo Test Negative PT-OP-Q Treatments Start: 01/06/18 07:25 Freq: Status: Active Protocol: Document 04/11/18 11:15 AMB (Rec: 04/11/18 13:35 AMB [email or web address]) Gym Equipment Shuttle Balance 1 Details RED Reps/Duration 10 Comments WBOS with horizonal and diagonal head turns Neuro Re-Education Treatment Other Activities 6 Details Foam Comments Blue stride stance 5 Details gait with head turns Comments horizontal, vertical, diagonal 3 Details VOR1 Comments semi tandem, NBOS foam, 1 Details Stride stance bow with head turn Reps/Duration 10 PT-OP-T Assessment and Plan Start: 01/06/18 07:25 Freq: Status: Active Protocol: Document 04/11/18 11:15 AMB (Rec: 04/11/18 13:37 AMB [email or web address]) Physical Therapy Assessment Assessment Summary Assessment Pt improved with overall balance, but diagonal head turns are still hard. Physical Therapy Plan Next Visit Focus/Plan Next Note Type Treatment Note Next Visit Plan Progress HEP as tolerated
--- NOTE | 2018-04-20 13:53 | PT.OTN ---
Current Diagnoses Dizziness and giddiness (04/20/18) Physical Therapy Treatment Note PT-OP-A Visit Information Start: 01/06/18 07:25 Freq: Status: Active Protocol: Document 04/20/18 08:15 AMB (Rec: 04/20/18 09:45 AMB [email or web address]) Out-Patient Physical Therapy Visit Information Visit Information Visit Type Treatment Note Visit Start Time 08:15 Visit Stop Time 09:00 Visit Number 9 Evaluation Information Evaluation Date 01/06/18 PT-OP-B Current Condition Start: 01/06/18 07:25 Freq: Status: Active Protocol: Document 01/06/18 08:15 AMB (Rec: 01/06/18 15:25 AMB [email or web address]) Current Condition History of Current Condition History of Current Condition 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 No BPPV currently but a feeling of spinning and being off balance has continued a few times a week. Sometimes he can move his head and be fine, sometimes it causes dizzines. 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 PT-OP-D Balance Start: 01/06/18 07:25 Freq: Status: Active Protocol: Document 01/06/18 08:15 AMB (Rec: 01/06/18 15:37 AMB [email or web address]) Balance Tests Single Limb Standing Single Limb- Right 10 seconds Single Limb- Left 10 seconds Semi-Tandem Standing Semi-Tandem Standing Balance EO 30 seconds. EO HT 30 seconds but dizzy. EC 20 seconds dizzy. PT-OP-E Functional Tests Start: 01/06/18 07:25 Freq: Status: Active Protocol: Document 01/06/18 08:15 AMB (Rec: 01/06/18 15:46 AMB [email or web address]) Functional Tests Dynamic Gait Index (DGI) Score 21 DGI Impairment Rating 1 to <20% Impaired (Score 20- 23) PT-OP-O Vestibular Start: 01/06/18 07:25 Freq: Status: Active Protocol: Document 01/06/18 08:15 AMB (Rec: 01/06/18 15:33 AMB [email or web address]) Vestibular Assessment Visual Testing Smooth Pursuits Horizontal WFL Smooth Pursuits Vertical WFL Saccades Horizontal WFL Saccades Vertical WFL Thrust Head Positive Bilateral Convergence Test WNL DVA (Line Degradation) 2 Positional Testing Cervical Vertigo Test Negative PT-OP-Q Treatments Start: 01/06/18 07:25 Freq: Status: Active Protocol: Document 04/20/18 09:00 AMB (Rec: 04/20/18 13:53 AMB [email or web address]) Gym Equipment Shuttle Balance 1 Details RED Reps/Duration 10 Comments WBOS, stride stance with horizonal and diagonal head turns Neuro Re-Education Treatment Other Activities 6 Details Foam Comments Blue stride stance 5 Details gait with head turns Comments horizontal, vertical, diagonal 3 Details VOR1 Comments semi tandem, NBOS foam, PT-OP-T Assessment and Plan Start: 01/06/18 07:25 Freq: Status: Active Protocol: Document 04/20/18 09:00 AMB (Rec: 04/20/18 13:53 AMB [email or web address]) Physical Therapy Assessment Assessment Summary Assessment The patient tolerated more diagonal head turns today. Balance board was difficult due to foot pain. Physical Therapy Plan Next Visit Focus/Plan Next Note Type Treatment Note Next Visit Plan Progress vestibular rehab emphasize speed of head turns
--- NOTE | 2018-05-18 09:22 | PT.OTN ---
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 No BPPV currently but a feeling of spinning and being off balance has continued a few times a week. Sometimes he can move his head and be fine, sometimes it causes dizzines. 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 Treatment Goals Patient/Caregiver Goals Reduce dizziness Prior Functional Status Baseline Function- ADL's Independent Baseline Function- Mobility Independent Current Functional Impairments (Reported) Functional Limitations- ADL's Unable to go up on ladders Personal Factors Other Personal Factors That May Effect Retiring soon Therapy/Recovery PT-OP-C Subjective Start: 01/06/18 07:25 Freq: Status: Active Protocol: Document 05/17/18 11:15 AMB (Rec: 05/17/18 12:02 AMB [email or web address]) OP-PT Subjective Patient Comments Patient Comments Pt reports 1 dizzy spell/ 10 days, especially with leaning over and head turns. PT-OP-D Balance Start: 01/06/18 07:25 Freq: Status: Active Protocol: Document 01/06/18 08:15 AMB (Rec: 01/06/18 15:37 AMB [email or web address]) Balance Tests Single Limb Standing Single Limb- Right 10 seconds Single Limb- Left 10 seconds Semi-Tandem Standing Semi-Tandem Standing Balance EO 30 seconds. EO HT 30 seconds but dizzy. EC 20 seconds dizzy. PT-OP-E Functional Tests Start: 01/06/18 07:25 Freq: Status: Active Protocol: Document 01/06/18 08:15 AMB (Rec: 01/06/18 15:46 AMB [email or web address]) Functional Tests Dynamic Gait Index (DGI) Score 21 DGI Impairment Rating 1 to <20% Impaired (Score 20- 23) PT-OP-O Vestibular Start: 01/06/18 07:25 Freq: Status: Active Protocol: Document 01/06/18 08:15 AMB (Rec: 01/06/18 15:33 AMB [email or web address]) Vestibular Assessment Visual Testing Smooth Pursuits Horizontal WFL Smooth Pursuits Vertical WFL Saccades Horizontal WFL Saccades Vertical WFL Thrust Head Positive Bilateral Convergence Test WNL DVA (Line Degradation) 2 Positional Testing Cervical Vertigo Test Negative PT-OP-Q Treatments Start: 01/06/18 07:25 Freq: Status: Active Protocol: Document 05/17/18 11:15 AMB (Rec: 05/18/18 09:21 AMB [email or web address]) Gym Equipment Shuttle Balance 1 Details RED Reps/Duration 10 Comments WBOS, stride stance with horizonal and diagonal head turns Neuro Re-Education Treatment Other Activities 7 Details gait with pivot turn 6 Details Foam Comments Blue stride stance 5 Details gait with head turns Comments horizontal, vertical, diagonal 4 Details VOR2 Comments horizontal and diagonal semi tandem stance 3 Details VOR1 Comments semi tandem, NBOS foam, 2 Details single leg stance Comments 3 step with HT 1 Details Stride stance bow with head turn Reps/Duration 10 PT-OP-T Assessment and Plan Start: 01/06/18 07:25 Freq: Status: Active Protocol: Document 05/17/18 11:15 AMB (Rec: 05/17/18 13:01 AMB [email or web address]) Physical Therapy Assessment Goals 2 Impairment Balance Short Term Goal (STG) The patient will improve his DGI to 23/24.-- NOT YET MET STG Duration 4 weeks Chief Nurse Executive Goal (LTG) The patient will improve his single leg stance balance to 15 seconds. MET LTG Duration 8 weeks 1 Impairment Dizziness Short Term Goal (STG) The patient will walk with horizontal head turns without dizziness. PARTIALLY MET STG Duration 4 weeks Chief Nurse Executive Goal (LTG) The patient will perform a stand pivot turn without increasing dizziness. PARTIALLY MET Physical Therapy Plan Frequency and Duration Frequency of Treatment Every Other Week Duration of Treatment 6 weeks Plan of Care Start Date 05/17/18 Plan of Care End Date 06/28/18 Therapeutic Interventions Therapeutic Interventions Balance Training Gait Training Manual Therapy Neuromuscular Re-education Self-Care/Home Management Therapeutic Activities Therapeutic Exercises Vestibular Rehabilitation
--- NOTE | 2018-05-18 09:23 | PT.OPPOC ---
Current Diagnoses Dizziness and giddiness (05/17/18) Provider Visit Care Team Role Provider Type Sushant Boyle MD Primary Care Provider Physician Specialty: Internal Medicine Address: [address] [place] [address], [phone] Email: [email or web address] Leonard Danielle MD Attending Provider Physician Specialty: Ear, Nose, Throat Address: [address] [place] [address], [phone] Email: Plan Of Care PT-OP-T Assessment and Plan Start: 01/06/18 07:25 Freq: Status: Active Protocol: Document 05/17/18 11:15 AMB (Rec: 05/17/18 13:01 AMB [email or web address]) Physical Therapy Assessment Goals 2 Impairment Balance Short Term Goal (STG) The patient will improve his DGI to 23/24.-- NOT YET MET STG Duration 4 weeks Solar Designer/Installer Goal (LTG) The patient will improve his single leg stance balance to 15 seconds. MET LTG Duration 8 weeks 1 Impairment Dizziness Short Term Goal (STG) The patient will walk with horizontal head turns without dizziness. PARTIALLY MET STG Duration 4 weeks Solar Designer/Installer Goal (LTG) The patient will perform a stand pivot turn without increasing dizziness. PARTIALLY MET Physical Therapy Plan Frequency and Duration Frequency of Treatment Every Other Week Duration of Treatment 6 weeks Plan of Care Start Date 05/17/18 Plan of Care End Date 06/28/18 Therapeutic Interventions Therapeutic Interventions Balance Training Gait Training Manual Therapy Neuromuscular Re-education Self-Care/Home Management Therapeutic Activities Therapeutic Exercises Vestibular Rehabilitation Plan of Care Dates Plan of Care Start Date 05/17/18 Plan of Care End Date 06/28/18 Please Sign and Return: I have reviewed this Plan of Care and certify that the skilled therapy services above are required to meet the patient?s needs. Physician Signature Date Printed Name and Credentials Clinical Instructor Signature Printed Name and Credentials
--- NOTE | 2018-06-07 11:15 | PT.OTN ---
Current Diagnoses Dizziness and giddiness (06/07/18) Physical Therapy Treatment Note PT-OP-A Visit Information Start: 01/06/18 07:25 Freq: Status: Active Protocol: Document 06/07/18 11:15 AMB (Rec: 06/08/18 16:30 AMB [email or web address]) Out-Patient Physical Therapy Visit Information Visit Information Visit Type Treatment Note Visit Note G code 12/23 Visit Start Time 11:15 Visit Stop Time 12:00 Visit Number 11 Evaluation Information Evaluation Date 01/06/18 PT-OP-B Current Condition Start: 01/06/18 07:25 Freq: Status: Active Protocol: Document 01/06/18 08:15 AMB (Rec: 01/06/18 15:25 AMB [email or web address]) Current Condition History of Current Condition History of Current Condition 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 No BPPV currently but a feeling of spinning and being off balance has continued a few times a week. Sometimes he can move his head and be fine, sometimes it causes dizzines. 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 PT-OP-D Balance Start: 01/06/18 07:25 Freq: Status: Active Protocol: Document 01/06/18 08:15 AMB (Rec: 01/06/18 15:37 AMB [email or web address]) Balance Tests Single Limb Standing Single Limb- Right 10 seconds Single Limb- Left 10 seconds Semi-Tandem Standing Semi-Tandem Standing Balance EO 30 seconds. EO HT 30 seconds but dizzy. EC 20 seconds dizzy. PT-OP-E Functional Tests Start: 01/06/18 07:25 Freq: Status: Active Protocol: Document 01/06/18 08:15 AMB (Rec: 05/24/18 15:46 AMB [email or web address]) Functional Tests Dynamic Gait Index (DGI) Score 21 DGI Impairment Rating 1 to <20% Impaired (Score 20- 23) PT-OP-O Vestibular Start: 01/06/18 07:25 Freq: Status: Active Protocol: Document 01/06/18 08:15 AMB (Rec: 01/06/18 15:33 AMB [email or web address]) Vestibular Assessment Visual Testing Smooth Pursuits Horizontal WFL Smooth Pursuits Vertical WFL Saccades Horizontal WFL Saccades Vertical WFL Thrust Head Positive Bilateral Convergence Test WNL DVA (Line Degradation) 2 Positional Testing Cervical Vertigo Test Negative PT-OP-Q Treatments Start: 01/06/18 07:25 Freq: Status: Active Protocol: Document 06/07/18 11:15 AMB (Rec: 06/08/18 16:30 AMB [email or web address]) Neuro Re-Education Treatment Other Activities 7 Details gait with pivot turn 6 Details Foam Comments Blue stride stance 5 Details gait with head turns Comments horizontal, vertical, diagonal 4 Details VOR2 Comments horizontal and diagonal semi tandem stance 3 Details VOR1 Comments semi tandem, NBOS foam, 2 Details single leg stance Comments 3 step with HT 1 Details Stride stance bow with head turn Reps/Duration 10 PT-OP-T Assessment and Plan Start: 01/06/18 07:25 Freq: Status: Active Protocol: Document 06/07/18 11:15 AMB (Rec: 06/08/18 16:30 AMB [email or web address]) Physical Therapy Assessment Assessment Summary Assessment The patient will be seen one more time and then likely d/c to hep. Physical Therapy Plan Next Visit Focus/Plan Next Note Type Discharge Summary Next Visit Plan Progress vestibular rehab emphasize speed of head turns
--- NOTE | 2018-06-30 11:57 | PT.OPPOC ---
Current Diagnoses Dizziness and giddiness (06/30/18) Provider Visit Care Team Role Provider Type Sushant Boyle MD Primary Care Provider Physician Specialty: Internal Medicine Address: [address] [place] [address], [address] Email: [email or web address] Leonard Danielle MD Attending Provider Physician Specialty: Ear, Nose, Throat Address: [address] [place] [address], [phone] Email: Plan Of Care PT-OP-T Assessment and Plan Start: 01/06/18 07:25 Freq: Status: Active Protocol: Document 06/30/18 10:30 AMB (Rec: 06/30/18 11:56 AMB [email or web address]) Physical Therapy Assessment Goals 2 Impairment Balance Short Term Goal (STG) The patient will improve his DGI to 23/24.-- NOT YET MET STG Duration 4 weeks Orthopedic Designer Goal (LTG) The patient will improve his single leg stance balance to 15 seconds. MET LTG Duration 8 weeks 1 Impairment Dizziness Short Term Goal (STG) The patient will walk with horizontal head turns without dizziness. PARTIALLY MET STG Duration 4 weeks Orthopedic Designer Goal (LTG) The patient will perform a stand pivot turn without increasing dizziness. PARTIALLY MET Assessment Summary Assessment The patient had a flare up in frequency of his symptoms so he would like to continue with PT for now. Reinforced speed and duration of HEP so that he really does push into some of his dizziness. Physical Therapy Plan Frequency and Duration Frequency of Treatment 1x/month Duration of Treatment 3 months Plan of Care Start Date 06/30/18 Plan of Care End Date 10/28/17 Next Visit Focus/Plan Next Note Type Treatment Note Next Visit Plan Progress vestibular rehab emphasize speed of head turns Plan of Care Dates Plan of Care Start Date 06/30/18 Plan of Care End Date 10/28/17 Please Sign and Return: I have reviewed this Plan of Care and certify that the skilled therapy services above are required to meet the patient?s needs. Physician Signature Date Printed Name and Credentials Clinical Instructor Signature Printed Name and Credentials
--- NOTE | 2018-06-30 11:58 | PT.OTN ---
Current Diagnoses Dizziness and giddiness (06/30/18) Physical Therapy Treatment Note PT-OP-A Visit Information Start: 01/06/18 07:25 Freq: Status: Active Protocol: Document 06/30/18 10:30 AMB (Rec: 06/30/18 11:56 AMB [email or web address]) Out-Patient Physical Therapy Visit Information Visit Information Visit Type Progress Note Visit Note G code 08/25 Visit Start Time 11:15 Visit Stop Time 12:00 Visit Number 12 Evaluation Information Evaluation Date 01/06/18 PT-OP-B Current Condition Start: 01/06/18 07:25 Freq: Status: Active Protocol: Document 01/06/18 08:15 AMB (Rec: 01/06/18 15:25 AMB [email or web address]) Current Condition History of Current Condition History of Current Condition 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 No BPPV currently but a feeling of spinning and being off balance has continued a few times a week. Sometimes he can move his head and be fine, sometimes it causes dizzines. 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 Mostly associated with diagonal head turns. PT-OP-D Balance Start: 01/06/18 07:25 Freq: Status: Active Protocol: Document 01/06/18 08:15 AMB (Rec: 01/06/18 15:37 AMB [email or web address]) Balance Tests Single Limb Standing Single Limb- Right 10 seconds Single Limb- Left 10 seconds Semi-Tandem Standing Semi-Tandem Standing Balance EO 30 seconds. EO HT 30 seconds but dizzy. EC 20 seconds dizzy. PT-OP-E Functional Tests Start: 01/06/18 07:25 Freq: Status: Active Protocol: Document 05/24/18 08:15 AMB (Rec: 01/06/18 15:46 AMB [email or web address]) Functional Tests Dynamic Gait Index (DGI) Score 21 DGI Impairment Rating 1 to <20% Impaired (Score 20- 23) PT-OP-O Vestibular Start: 01/06/18 07:25 Freq: Status: Active Protocol: Document 01/06/18 08:15 AMB (Rec: 01/06/18 15:33 AMB [email or web address]) Vestibular Assessment Visual Testing Smooth Pursuits Horizontal WFL Smooth Pursuits Vertical WFL Saccades Horizontal WFL Saccades Vertical WFL Thrust Head Positive Bilateral Convergence Test WNL DVA (Line Degradation) 2 Positional Testing Cervical Vertigo Test Negative PT-OP-Q Treatments Start: 01/06/18 07:25 Freq: Status: Active Protocol: Document 06/30/18 10:30 AMB (Rec: 06/30/18 11:56 AMB [email or web address]) Neuro Re-Education Treatment Other Activities 6 Details Foam Comments Blue stride stance with head turn 5 Details gait with head turns Comments horizontal, vertical, diagonal 4 Details VOR2 Comments horizontal and diagonal semi tandem stance 3 Details VOR1 Comments semi tandem, NBOS foam, PT-OP-T Assessment and Plan Start: 01/06/18 07:25 Freq: Status: Active Protocol: Document 06/30/18 10:30 AMB (Rec: 06/30/18 11:56 AMB [email or web address]) Physical Therapy Assessment Goals 2 Impairment Balance Short Term Goal (STG) The patient will improve his DGI to 23/24.-- NOT YET MET STG Duration 4 weeks Elevator Operator Freight Goal (LTG) The patient will improve his single leg stance balance to 15 seconds. MET LTG Duration 8 weeks 1 Impairment Dizziness Short Term Goal (STG) The patient will walk with horizontal head turns without dizziness. PARTIALLY MET STG Duration 4 weeks Mcfp Goal (LTG) The patient will perform a stand pivot turn without increasing dizziness. PARTIALLY MET Assessment Summary Assessment The patient had a flare up in frequency of his symptoms so he would like to continue with PT for now. Reinforced speed and duration of HEP so that he really does push into some of his dizziness. Physical Therapy Plan Frequency and Duration Frequency of Treatment 1x/month Duration of Treatment 3 months Plan of Care Start Date 06/30/18 Plan of Care End Date 10/28/17 Next Visit Focus/Plan Next Note Type Treatment Note Next Visit Plan Progress vestibular rehab emphasize speed of head turns
--- NOTE | 2018-08-01 14:03 | PT.OTN ---
Current Diagnoses Dizziness and giddiness (08/01/18) Physical Therapy Treatment Note PT-OP-A Visit Information Start: 01/06/18 07:25 Freq: Status: Active Protocol: Document 08/01/18 09:45 AMB (Rec: 08/01/18 09:57 AMB [id number]) Out-Patient Physical Therapy Visit Information Visit Information Visit Type Treatment Note Visit Note G code 09/25 Visit Start Time 09:45 Visit Stop Time 10:30 Visit Number 13 PT-OP-B Current Condition Start: 01/06/18 07:25 Freq: Status: Active Protocol: Document 01/06/18 08:15 AMB (Rec: 01/06/18 15:25 AMB [email or web address]) Current Condition History of Current Condition History of Current Condition 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 No BPPV currently but a feeling of spinning and being off balance has continued a few times a week. Sometimes he can move his head and be fine, sometimes it causes dizzines. 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 Treatment Goals Patient/Caregiver Goals Reduce dizziness Prior Functional Status Baseline Function- ADL's Independent Baseline Function- Mobility Independent Current Functional Impairments (Reported) Functional Limitations- ADL's Unable to go up on ladders Personal Factors Other Personal Factors That May Effect Retiring soon Therapy/Recovery PT-OP-C Subjective Start: 01/06/18 07:25 Freq: Status: Active Protocol: Document 08/01/18 09:45 AMB (Rec: 08/01/18 09:57 AMB [id number]) OP-PT Subjective Patient Comments Patient Comments Pt had 2 episodes of dizziness over the last month, both with looking up. PT-OP-D Balance Start: 01/06/18 07:25 Freq: Status: Active Protocol: Document 01/06/18 08:15 AMB (Rec: 01/06/18 15:37 AMB [email or web address]) Balance Tests Single Limb Standing Single Limb- Right 10 seconds Single Limb- Left 10 seconds Semi-Tandem Standing Semi-Tandem Standing Balance EO 30 seconds. EO HT 30 seconds but dizzy. EC 20 seconds dizzy. PT-OP-E Functional Tests Start: 01/06/18 07:25 Freq: Status: Active Protocol: Document 01/06/18 08:15 AMB (Rec: 05/24/18 15:46 AMB [email or web address]) Functional Tests Dynamic Gait Index (DGI) Score 21 DGI Impairment Rating 1 to <20% Impaired (Score 20- 23) PT-OP-O Vestibular Start: 01/06/18 07:25 Freq: Status: Active Protocol: Document 01/06/18 08:15 AMB (Rec: 01/06/18 15:33 AMB [email or web address]) Vestibular Assessment Visual Testing Smooth Pursuits Horizontal WFL Smooth Pursuits Vertical WFL Saccades Horizontal WFL Saccades Vertical WFL Thrust Head Positive Bilateral Convergence Test WNL DVA (Line Degradation) 2 Positional Testing Cervical Vertigo Test Negative PT-OP-Q Treatments Start: 01/06/18 07:25 Freq: Status: Active Protocol: Document 08/01/18 09:45 AMB (Rec: 08/01/18 14:01 AMB [id number]) Neuro Re-Education Treatment Other Activities 6 Details Foam Comments Blue stride stance with head turn 5 Details gait with head turns Comments horizontal, vertical, diagonal 4 Details VOR2 Comments horizontal and diagonal semi tandem stance 3 Details VOR1 Comments semi tandem, NBOS foam, 1 Details Stride stance bow with head turn Reps/Duration 10 PT-OP-T Assessment and Plan Start: 01/06/18 07:25 Freq: Status: Active Protocol: Document 08/01/18 09:45 AMB (Rec: 08/01/18 14:01 AMB [id number]) Physical Therapy Assessment Assessment Summary Assessment Pt continues to have dizziness with therapy. Dizziness with every day activities is improving. Encouraged pt to increase the size of his diagonal head turns. Physical Therapy Plan Next Visit Focus/Plan Next Visit Plan Reassess sx with looking up
--- NOTE | 2018-09-19 14:58 | PT.OTN ---
Current Diagnoses Dizziness and giddiness (09/19/18) Physical Therapy Treatment Note PT-OP-A Visit Information Start: 01/06/18 07:25 Freq: Status: Active Protocol: Document 09/19/18 10:30 AMB (Rec: 09/19/18 10:43 AMB [id number]) Out-Patient Physical Therapy Visit Information Visit Information Visit Type Treatment Note Visit Note G code 09/25 Visit Start Time 10:30 Visit Stop Time 11:15 Visit Number 14 PT-OP-B Current Condition Start: 01/06/18 07:25 Freq: Status: Active Protocol: Document 01/06/18 08:15 AMB (Rec: 01/06/18 15:25 AMB [email or web address]) Current Condition History of Current Condition History of Current Condition 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 No BPPV currently but a feeling of spinning and being off balance has continued a few times a week. Sometimes he can move his head and be fine, sometimes it causes dizzines. 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 PT-OP-D Balance Start: 01/06/18 07:25 Freq: Status: Active Protocol: Document 01/06/18 08:15 AMB (Rec: 01/06/18 15:37 AMB [email or web address]) Balance Tests Single Limb Standing Single Limb- Right 10 seconds Single Limb- Left 10 seconds Semi-Tandem Standing Semi-Tandem Standing Balance EO 30 seconds. EO HT 30 seconds but dizzy. EC 20 seconds dizzy. PT-OP-E Functional Tests Start: 01/06/18 07:25 Freq: Status: Active Protocol: Document 01/06/18 08:15 AMB (Rec: 01/06/18 15:46 AMB [email or web address]) Functional Tests Dynamic Gait Index (DGI) Score 21 DGI Impairment Rating 1 to <20% Impaired (Score 20- 23) PT-OP-O Vestibular Start: 01/06/18 07:25 Freq: Status: Active Protocol: Document 01/06/18 08:15 AMB (Rec: 01/06/18 15:33 AMB [email or web address]) Vestibular Assessment Visual Testing Smooth Pursuits Horizontal WFL Smooth Pursuits Vertical WFL Saccades Horizontal WFL Saccades Vertical WFL Thrust Head Positive Bilateral Convergence Test WNL DVA (Line Degradation) 2 Positional Testing Cervical Vertigo Test Negative PT-OP-Q Treatments Start: 01/06/18 07:25 Freq: Status: Active Protocol: Document 09/19/18 10:30 AMB (Rec: 09/19/18 14:58 AMB [email or web address]) Gym Equipment Shuttle Balance 1 Details RED Reps/Duration 10 Comments WBOS, stride stance with horizonal and diagonal head turns Neuro Re-Education Treatment Other Activities 5 Details gait with head turns Comments horizontal, vertical, diagonal 4 Details VOR2 Comments horizontal and diagonal semi tandem stance 3 Details VOR1 Comments semi tandem, NBOS foam, 1 Details Stride stance bow with head turn Reps/Duration 10 PT-OP-T Assessment and Plan Start: 01/06/18 07:25 Freq: Status: Active Protocol: Document 09/19/18 10:30 AMB (Rec: 09/19/18 14:58 AMB [email or web address]) Physical Therapy Assessment Assessment Summary Assessment Pt has most dizziness with exercises and at therapy. Has had a few episodes of unexpected dizziness all with diagonal head turns. But overall feels incidence of dizziness is decreasing. Physical Therapy Plan Next Visit Focus/Plan Next Note Type Treatment Note Next Visit Plan Possible d/c
--- NOTE | 2019-01-06 12:38 | PT.OPPOC ---
Current Diagnoses Dizziness and giddiness (01/06/19) Provider Visit Care Team Role Provider Type Sushant Boyle MD Primary Care Provider Physician Specialty: Internal Medicine Address: [address] [place] [address], [phone] Email: [email or web address] Leonard Danielle MD Attending Provider Physician Specialty: Ear, Nose, Throat Address: [address], [address] Email: Plan of Care Dates Plan of Care Start Date 01/06/19 Plan of Care End Date 01/13/19 Please Sign and Return: I have reviewed this Plan of Care and certify that the skilled therapy services above are required to meet the patient?s needs. Physician Signature Date Printed Name and Credentials Clinical Instructor Signature Printed Name and Credentials
--- NOTE | 2019-01-06 15:44 | PT.OTN ---
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 No BPPV currently but a feeling of spinning and being off balance has continued a few times a week. Sometimes he can move his head and be fine, sometimes it causes dizzines. 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 Treatment Goals Patient/Caregiver Goals Reduce dizziness Prior Functional Status Baseline Function- ADL's Independent Baseline Function- Mobility Independent Current Functional Impairments (Reported) Functional Limitations- ADL's Unable to go up on ladders Personal Factors Other Personal Factors That May Effect Retiring soon Therapy/Recovery PT-OP-C Subjective Start: 01/06/18 07:25 Freq: Status: Active Protocol: Document 01/06/19 14:30 AMB (Rec: 01/10/19 07:41 AMB [email or web address]) OP-PT Subjective Patient Comments Patient Comments Pt notes about one dizzy episode per month. PT-OP-D Balance Start: 01/06/18 07:25 Freq: Status: Active Protocol: Document 01/06/18 08:15 AMB (Rec: 01/06/18 15:37 AMB [email or web address]) Balance Tests Single Limb Standing Single Limb- Right 10 seconds Single Limb- Left 10 seconds Semi-Tandem Standing Semi-Tandem Standing Balance EO 30 seconds. EO HT 30 seconds but dizzy. EC 20 seconds dizzy. PT-OP-E Functional Tests Start: 01/06/18 07:25 Freq: Status: Active Protocol: Document 01/06/18 08:15 AMB (Rec: 01/06/18 15:46 AMB [email or web address]) Functional Tests Dynamic Gait Index (DGI) Score 21 DGI Impairment Rating 1 to <20% Impaired (Score 20- 23) PT-OP-O Vestibular Start: 01/06/18 07:25 Freq: Status: Active Protocol: Document 01/06/18 08:15 AMB (Rec: 01/06/18 15:33 AMB [email or web address]) Vestibular Assessment Visual Testing Smooth Pursuits Horizontal WFL Smooth Pursuits Vertical WFL Saccades Horizontal WFL Saccades Vertical WFL Thrust Head Positive Bilateral Convergence Test WNL DVA (Line Degradation) 2 Positional Testing Cervical Vertigo Test Negative PT-OP-Q Treatments Start: 01/06/18 07:25 Freq: Status: Active Protocol: Document 01/06/19 14:30 AMB (Rec: 01/13/19 15:44 AMB [email or web address]) Neuro Re-Education Treatment Other Activities 7 Details gait with pivot turn 5 Details gait with head turns Comments horizontal, vertical, diagonal 4 Details VOR2 Comments horizontal and diagonal semi tandem stance 3 Details VOR1 Comments semi tandem, NBOS foam, 1 Details Stride stance bow with head turn Reps/Duration 10 PT-OP-T Assessment and Plan Start: 01/06/18 07:25 Freq: Status: Active Protocol: Document 01/06/19 14:30 AMB (Rec: 01/13/19 15:44 AMB [email or web address]) Physical Therapy Assessment Goals 2 Impairment Balance Short Term Goal (STG) The patient will improve his DGI to 23/24. STG Duration PROGRESS MADE River Guide Goal (LTG) The patient will improve his single leg stance balance to 15 seconds. MET LTG Duration 8 weeks 1 Impairment Dizziness Short Term Goal (STG) The patient will walk with horizontal head turns without dizziness. STG Duration MET Usp Goal (LTG) The patient will perform a stand pivot turn without increasing dizziness. LTG Duration MET Assessment Summary Assessment Sushant has been seen for 14 visits. In that time, his dizziness has improved from multiple times per week to less than once per month. He has been doing his VOR exercises for about 8 minutes per day, encouraged at this visit to increase to 15 minuts per day to work on the last bit of his dizziness. He is overall happy with his improvement this far, although he is not wanting to go up on ladders. Pt is independent with his HEP and is ready to be discharged at this time. Physical Therapy Plan Frequency and Duration Frequency of Treatment 1x/Week Duration of Treatment 1 week Plan of Care Start Date 01/06/19 Plan of Care End Date 01/13/19 Discharge Physical Therapy Discharge Reasons Goals Met
== END 2019-01-18 14:50 | disposition home or self-care (01) ==
LOC: PHYS 14:30
PROVIDERS: PCP Internal Medicine; Visit Provider Otolaryngology Facial Plastic Surgery
DX: R42 Dizziness and giddiness (principal)
CPT/HCPCS: 97110; 97112; 97161

== ENCOUNTER → 2019-03-13 15:19 | Outpatient (CLI) | payer MEDICARE, BC, SELFPAY ==
--- NOTE | 2019-03-13 15:21 | DI.US.S_ITS ---
PROCEDURE: US EXTREMITY NONVASC LOWER LT INDICATIONS: LT HAMSTRING AND CALF MUSCLE PAINS/P INJURY TECHNIQUE: Real-time scanning was performed of the posterior mid thigh and upper calf, with image documentation. COMPARISON: None. FINDINGS: There is a complex fluid collection in the posterior mid thigh and upper calf measuring 2.4 cm AP, 4.3 cm transverse and 9.7 cm cephalocaudal. It is most likely a hematoma. IMPRESSION: A 2.0 x 4.3 x 9.7 cm complex fluid collection posterior to mid thigh and upper calf, consistent hematoma. To evaluate muscle injury/tendon rupture, MRI may be helpful. Dictated by: Emigdio John M.D. on 03/13/2019 at 16:15 Approved by: Emigdio John M.D. on 03/13/2019 at 16:29
== END ==
PROVIDERS: PCP Internal Medicine; Visit Provider Registered Nurse
DX: S70.12XA Contusion of left thigh, initial encounter (principal); M79.652 Pain in left thigh; M79.662 Pain in left lower leg; S76.312A Strain of muscle, fascia and tendon of the posterior muscle group at thigh level, left thigh, initial encounter
CPT/HCPCS: 76882

== ENCOUNTER → 2019-03-14 08:43 | Outpatient (CLI) | payer MEDICARE, BC, SELFPAY ==
[2019-03-14 10:06] LABS: Alanine Aminotransferase 22 IU/L (21-72); Albumin 4.2 g/dL (3.5-5.0); Albumin Globulin Ratio 1.8 (1.0-2.8); Alkaline Phosphatase 60 U/L (38-126); Aspartate Aminotransferase 18 IU/L (17-59); Bilirubin Total 0.8 mg/dL (0.2-1.3); Blood Urea Nitrogen 20 mg/dL (9-20); Calcium 8.8 mg/dL (8.4-10.2); Carbon Dioxide 27 mmol/L (22-32); Chloride 105 mmol/L (98-107); Cholesterol 114 mg/dL (140-199); Estimated Glomerular Filt Rate > 60.0 mL/min (>60); Globulin 2.4 g/dL (1.7-4.1); Glucose 93 mg/dL (80-110); HDL Cholesterol 64 mg/dL (40-60); HEMOLYSIS < 15 (0-50); LDL Cholesterol Calculated 37 mg/dL (<100); Potassium 4.5 mmol/L (3.4-5.1); Sodium 140 mmol/L (137-145); Total Protein 6.6 g/dL (6.3-8.2); Triglycerides 64 mg/dL (35-150)
[2019-03-14 10:36] LABS: Prostate Specific Antigen Scrn 3.39 ng/mL (0.1-4.0)
[2019-03-14 10:40] LABS: Ferritin 73.3 ng/mL (17.9-464)
[2019-03-17 15:54] LABS: PSA Free % 14 % (calc) (> 25); PSA, Total 4.2 ng/mL (< 4.1)
== END ==
PROVIDERS: Nurse Practitioner Family; Family Provider Internal Medicine; PCP Internal Medicine; Visit Provider Urology
DX: R97.20 Elevated prostate specific antigen [PSA] (principal); G47.61 Periodic limb movement disorder; E78.5 Hyperlipidemia, unspecified; G47.33 Obstructive sleep apnea (adult) (pediatric); I10 Essential (primary) hypertension; Z12.5 Encounter for screening for malignant neoplasm of prostate
CPT/HCPCS: 36415; 80053; 80061; 82728; 84153; 84154; G0103

== ENCOUNTER 2019-04-26 09:00 | Outpatient (RCR) | payer MEDICARE, BC, SELFPAY ==
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
--- NOTE | 2019-03-28 17:30 | PT.OPPOC ---
Current Diagnoses Unspecified injury of muscle, fascia and tendon of the posterior muscle group at thigh level, left thigh, initial encounter (03/28/19) Provider Visit Care Team Role Provider Type Sushant Boyle MD Family Provider Physician Primary Care Provider Specialty: Internal Medicine Address: [address] [place], [place] [id number] Email: [email or web address] JOHN Sams Attending Provider Advanced Operations Supervisor 2Nd Shift Specialty: Medical Address: [address] [place] [address], [address] Email: Plan Of Care PT-OP-T Assessment and Plan Start: 03/28/19 17:06 Freq: Status: Active Protocol: Document 03/28/19 17:07 ROGELIO (Rec: 03/28/19 17:09 ROGELIO [id number]) Physical Therapy Assessment Rehab Potential Rehabilitation Potential Good Evaluation Complexity Number of Personal Factors/Comorbidities 1-2 Number of Body Systems Impaired 1-2 Clinical Presentation at Evaluation Stable Impairments Impairments Activity Tolerance Pain ROM Soft Tissue Mobility Strength Goals Two Impairment LEFS of 38/80 Halfway Goal (LTG) LE's functional scale score of 55 or more LTG Duration 5 wks One Impairment Pain and difficulty from sitting to standing position Halfway Goal (LTG) Patient will sit > 2 hours with no pain to hamstring upon standing LTG Duration 4 wks 2 Impairment Impaired sleeping duration due to pain Halfway Goal (LTG) Patient will sleep more than 6 hours with no pain LTG Duration 4 wks 1 Impairment No HEP in place Halfway Goal (LTG) Patient will demonstrates independence with home exercises program with clear understanding. LTG Duration 4 wks Assessment Summary Assessment Pleasant 68 y/o M patient with a referring diagnosis of injury of muscles and tendon to posterior thigh. Today patient demonstrates difficulty of sitting and bed mobility due to grade 3/4 tenderness to left thigh and leg. Diagnostic imaging results is consistent with lateral hamstring injury with with myofascial tightness to posterior thigh and leg. No edema noted but tender to palpate through the entire LLE from posterior thigh down to entire post/lat/ant leg. Patient is negative Ebony's test or comparment syndrome. Gait analysis, knee/ankle ROM are WFL. Based on patient history and data obtained, patient is under the impression of left lateral hamstring strain with myofascial tightness due to swelling to LLE. Patient will benefit with skilled PT to improve quality of life. Physical Therapy Plan Frequency and Duration Frequency of Treatment 2x/Week Duration of Treatment 8 wks Plan of Care Start Date 03/28/19 Plan of Care End Date 05/07/19 Therapeutic Interventions Therapeutic Interventions Home Exercise Program Joint Mobilizations Manual Therapy Patient/Caregiver Education Self-Care/Home Management Soft Tissue Mobilization Taping Therapeutic Exercises Modalities Electric Stimulation Hot Packs Ultrasound Next Visit Focus/Plan Next Note Type Treatment Note Next Visit Plan HEP, flexibility, manual therapy for pain Plan of Care Dates Plan of Care Start Date 03/28/19 Plan of Care End Date 05/07/19 Please Sign and Return: I have reviewed this Plan of Care and certify that the skilled therapy services above are required to meet the patient?s needs. Physician Signature Date Printed Name and Credentials Clinical Instructor Signature Printed Name and Credentials
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
== END 2019-04-27 12:39 ==
LOC: PHYS 09:00
PROVIDERS: Family Provider Internal Medicine; PCP Internal Medicine; Visit Provider Registered Nurse
DX: S76.302A Unspecified injury of muscle, fascia and tendon of the posterior muscle group at thigh level, left thigh, initial encounter (principal)
CPT/HCPCS: 97010; 97014; 97035; 97110; 97140; 97161; 97530; 97535; G0283

== ENCOUNTER → 2019-08-10 14:00 | Outpatient (CLI) | payer MEDICARE, BC, SELFPAY ==
[2019-08-10 15:51] LABS: Prostate Specific Antigen 4.16 ng/mL (0.10-4.00)
== END ==
PROVIDERS: PCP Family Medicine; Visit Provider Urology
DX: C61 Malignant neoplasm of prostate (principal)
CPT/HCPCS: 36415; 84153

== ENCOUNTER → 2020-01-01 09:47 | Outpatient (CLI) | payer MEDICARE, BC, SELFPAY ==
[2020-01-02 08:19] LABS: PSA Free % 18.8 % (.); PSA, Total 5.8 ng/mL (0.0-4.0)
== END ==
PROVIDERS: PCP Internal Medicine; Referring Provider Urology; Visit Provider Urology
DX: R97.20 Elevated prostate specific antigen [PSA] (principal)
CPT/HCPCS: 36415; 84153; 84154

== ENCOUNTER → 2020-02-19 07:20 | Outpatient (CLI) | payer MEDICARE, BC, SELFPAY ==
[2020-02-19 11:11] LABS: Thyroid Stimulating Hormone 0.815 uIU/mL (0.47-4.68)
== END ==
PROVIDERS: PCP Internal Medicine; Referring Provider Internal Medicine Cardiovascular Disease; Visit Provider Internal Medicine Cardiovascular Disease
DX: R00.2 Palpitations (principal)
CPT/HCPCS: 36415; 84443

== ENCOUNTER → 2020-03-11 09:12 | Outpatient (CLI) | payer MEDICARE, BC, SELFPAY ==
--- NOTE | 2020-03-11 09:13 | DI.MRI.S_ITS ---
PROCEDURE: MR STROKE Pre- and post-contrast brain MRI, non-contrast brain MR angiogram, pre- and postcontrast neck MR angiogram INDICATIONS: Vertigo/Dizziness TECHNIQUE: Brain: Noncontrast axial T1 spin echo, axial T2 fast spin echo, sagittal and axial FLAIR, coronal T2 fast spin echo, axial gradient echo, axial diffusion and ADC through the brain. After the administration of contrast, axial 3D VIBE of the cranial vasculature and brain. Brain MRA: Non-contrast 3-D time of flight MR angiogram, with multiple gvjqrug-jruhflfkp-qgcywxuwiv (MIP) reformats performed. Neck MRA: Axial and sagittal TruFISP through the neck. Coronal dynamic MR angiogram during administration of contrast in the arterial and venous phases, with 3-dimenstional rjwssbe-xlgbwvpmt-insscmzwvl (MIP) reformats constructed from subtraction images. COMPARISON: None. FINDINGS: Image quality: Excellent. BRAIN: CSF spaces: Ventricles are normal in size and shape. Basal cisterns are patent. No extra-axial fluid collections. Brain: No intracranial bleeds or mass effects. Cohen-white matter interface is normal. Diffusion weighted images show no acute ischemic insults. Brainstem appears normal. Normal intravascular flow voids are present. No abnormal intracranial enhancement. Skull and face: Calvarial marrow signal is normal. Orbits appear normal. Sinuses: Sinuses and mastoids are clear. BRAIN MR ANGIOGRAM: Anterior circulation: Intracranial internal carotid arteries are normal in size and enhancement. The flow within the paired anterior cerebral arteries is normal and symmetric. The flow within the middle cerebral arteries is normal and symmetric. The anterior communicating artery is seen. No stenoses, occlusions, or aneurysms. Posterior circulation: The visualized portions of the vertebral arteries demonstrate normal caliber, and join to form a normal appearing basilar artery. The flow within the posterior cerebral arteries is normal and symmetric. No stenoses, occlusions, or aneurysms. NECK MR ANGIOGRAM: Carotids: Great vessels demonstrate a conventional anatomy as they arise from the aortic arch. The origins of the common carotid arteries appear patent. The calibers and courses of both common carotid arteries are normal. The bifurcation regions appear normal bilaterally. The internal carotid arteries demonstrate normal course and caliber. Posterior circulation: The origins of the vertebral arteries appear patent. More superior portions of both vertebral arteries demonstrate normal course and caliber, and join to form a normal appearing basilar artery. Miscellaneous: Subclavian arteries appear patent. Pre-contrast images through the neck show no soft tissue abnormalities. IMPRESSION: BRAIN MRI: No sign of mass, hemorrhage, or ischemic injury. No sign of mastoiditis, at the skull base no aneurysm or mass is suspected and no area of contrast enhancement of the 7th and 8th cranial nerves is identified that would indicate presence of nerve root inflammation or early neuroma. BRAIN MR ANGIOGRAM: Normal intracranial MR angiogram. NECK MR ANGIOGRAM: Normal cervical MR angiogram. Dictated by: Jovany Díaz M.D. on 03/11/2020 at 11:42 Approved by: Jovany Díaz M.D. on 03/11/2020 at 11:46
== END ==
PROVIDERS: PCP Internal Medicine; Referring Provider Internal Medicine; Visit Provider Internal Medicine
DX: R42 Dizziness and giddiness (principal)
CPT/HCPCS: 70548; 70553; A9579

== ENCOUNTER → 2020-03-27 08:02 | Outpatient (CLI) | payer MEDICARE, BC, SELFPAY ==
[2020-03-27 10:20] LABS: Add Manual Diff / Slide Review NO; Basophils Absolute Auto 0 /uL (0-100); Basophils Percent Auto 0.5 % (0-2); Eosinophils Absolute Auto 100 /uL (0-450); Eosinophils Percent Auto 1.4 % (2-4); Hematocrit 40.1 % (41-53); Hemoglobin 13.7 g/dL (13.5-17.5); Lymphocytes Absolute Auto 1100 /uL (1100-4500); Lymphocytes Percent Auto 21.7 % (25-40); Mean Corpuscular HGB Conc 34.1 % (30-36); Mean Corpuscular Hemoglobin 32.2 PG (26-34); Mean Corpuscular Volume 94.4 fL (80-100); Monocytes Absolute Auto 400 /uL (0-900); Neutrophils Absolute Auto 3600 /uL (1500-7000); Neutrophils Percent Auto 68.4 % (50-75); Platelet Count 174 X10^3/uL (150-400); Red Blood Cell Count 4.24 X10^6/uL (4.5-5.9); Red Cell Distribution Width 12.6 % (11.6-14.8); White Blood Cell Count 5.3 X10^3/uL (4.5-11.0)
[2020-03-27 10:54] LABS: BUN Creatinine Ratio 21.1 (6-22); Blood Urea Nitrogen 19 mg/dL (9-20); Calcium 9.3 mg/dL (8.4-10.2); Carbon Dioxide 24 mmol/L (22-32); Chloride 106 mmol/L (98-107); Estimated Glomerular Filt Rate > 60.0 mL/min (>60); Glucose 100 mg/dL (80-110); HEMOLYSIS < 15 (0-50); Potassium 4.5 mmol/L (3.4-5.1); Sodium 137 mmol/L (137-145)
[2020-03-28 06:36] LABS: PSA, Total 3.7 ng/mL (0.0-4.0)
== END ==
PROVIDERS: PCP Internal Medicine; Referring Provider Internal Medicine Cardiovascular Disease; Visit Provider Urology
DX: R97.20 Elevated prostate specific antigen [PSA] (principal); R00.2 Palpitations; R42 Dizziness and giddiness
CPT/HCPCS: 36415; 80048; 84153; 84154; 85025

== ENCOUNTER 2020-04-06 22:33 | Emergency (ER) | payer MEDICARE, BC, SELFPAY ==
[2020-04-06 22:40] VITALS: BP 120/58; PULSE 72; RESP 20; O2SAT 99
[2020-04-06 22:53] LABS: Add Manual Diff / Slide Review NO; Basophils Absolute Auto 0 /uL (0-100); Basophils Percent Auto 0.6 % (0-2); Eosinophils Absolute Auto 100 /uL (0-450); Eosinophils Percent Auto 1.5 % (2-4); Hematocrit 40.3 % (41-53); Hemoglobin 13.6 g/dL (13.5-17.5); Lymphocytes Absolute Auto 1900 /uL (1100-4500); Lymphocytes Percent Auto 26.1 % (25-40); Mean Corpuscular HGB Conc 33.8 % (30-36); Mean Corpuscular Hemoglobin 31.9 PG (26-34); Mean Corpuscular Volume 94.4 fL (80-100); Monocytes Absolute Auto 600 /uL (0-900); Monocytes Percent Auto 8.7 % (3-14); Neutrophils Absolute Auto 4700 /uL (1500-7000); Neutrophils Percent Auto 63.1 % (50-75); Platelet Count 209 X10^3/uL (150-400); Red Blood Cell Count 4.27 X10^6/uL (4.5-5.9); Red Cell Distribution Width 12.9 % (11.6-14.8); White Blood Cell Count 7.4 X10^3/uL (4.5-11.0)
--- NOTE | 2020-04-06 22:56 | ED.ARRPALP ---
HPI - Arrhythmia/Palpitations General Chief Complaint: Arrhythmia/Palpitations Stated Complaint: [place] Chest Flutters Time Seen by Provider: 04/06/20 22:35 Source: patient and EMS Mode of arrival: EMS Limitations: no limitations History of Present Illness HPI narrative: 70-year-old male nonsmoker with history of sleep apnea, hypertension, prostate cancer presents by EMS for evaluation of chest fluttering and palpitations this evening. He denies any chest pain, shortness of breath, dizziness, weakness or lightheadedness. He denies any new medications or dietary change. He denies any current symptoms. He did recently go through a Holter monitor which, in the end, did not have any significant findings but his smart watched noticed the occasional heart rate jumping to 220. He sees cardiology at [facility] had been placed on Cardizem a few weeks ago. He denies missing any doses or having dosing changes.. EMS Reports NSR with occasional PVCs MD complaint: skipped beats and palpitations Related Data Home Medications Medication Instructions Recorded Confirmed CA PANTOTHENATE/FOLIC ACID/VIT 1 tab PO Q DAY #0 05/21/11 02/15/20 (MULTIVITAMIN) [VITAMIN C] #0 05/21/11 02/15/20 atorvastatin [Lipitor] 10 mg PO HS #0 11/22/17 02/15/20 Resmed Airsense 10 CPAP #1 ea 01/26/19 02/15/20 Chondroitin Sulfate 1 cap PO BID 02/15/20 doxazosin 4 mg tablet 4 mg PO DAILY 02/15/20 02/15/20 tadalafil 5 mg tablet 5 mg PO DAILY 02/15/20 02/15/20 vitamin B complex 1 tab PO DAILY 02/15/20 02/15/20 Previous Rx's Medication Instructions Recorded omeprazole 40 mg capsule,delayed 40 mg PO BID #180 cap 11/27/19 release loperamide 2 mg capsule 4 mg PO Q DAY PRN #60 cap 01/01/20 Allergies Allergy/AdvReac Type Severity Reaction Status Date / Time econazole [ECONAZOLE] Allergy Mild BLISTERS Verified 02/15/20 13:29 terbinafine [TERBINAFINE] Allergy Mild BLISTER Verified 02/15/20 13:29 latex AdvReac Mild Sensitivity Verified 02/15/20 13:29 Review of Systems Constitutional Constitutional: Denies chills, Denies fatigue, Denies fever(s), Denies frequent falls, Denies lethargy and Denies weakness Eyes Eyes: Denies change in vision, Denies eye discharge, Denies irritation and Denies loss of vision ENT Ears, Nose, Mouth, and Throat: Denies change in voice, Denies dizziness, Denies neck pain, Denies sore throat and Denies throat swelling Cardiovascular Cardiovascular: Denies chest pain, Denies irregular heart rhythm, Denies lightheadedness, Denies palpitations, Denies dyspnea, Denies dyspnea on exertion and Denies orthopnea Comments: Palpitations Respiratory Respiratory: Denies cough, Denies dyspnea, Denies dyspnea on exertion and Denies wheezing Gastrointestinal Gastrointestinal: Denies abdominal pain, Denies change in bowel habits, Denies diarrhea, Denies nausea and Denies vomiting Musculoskeletal Musculoskeletal: Denies neck pain and Denies numbness Integumentary/Breasts Skin/Breast: Denies pruritus, Denies erythema, Denies rash and Denies wounds Neurologic Neurologic: Denies behavioral changes, Denies confusion, Denies dizziness, Denies frequent falls, Denies loss of vision, Denies numbness and Denies weakness Psychiatric Psychiatric: Denies anxiety, Denies behavioral changes, Denies confusion, Denies depression, Denies homicidal ideation and Denies suicidal ideation Endocrine Endocrine: Denies fatigue, Denies flushing and Denies palpitations Hematologic/Lymphatic Hematologic/Lymphatic: Denies easy bruising Allergic/Immunologic Allergic/Immunologic: Denies urticaria, Denies throat swelling and Denies wheezing Patient History Medical History Allergic rhinitis (Chronic 09/25/14) Elevated prostate specific antigen (PSA) (Resolved 09/29/17) Hernia (Acute) Hypertension (Chronic 05/21/11) Obstructive sleep apnea syndrome (Chronic 05/21/11) Plantar fasciitis of right foot (Acute) Primary insomnia (Resolved) Prostate cancer (Chronic) Skin cancer (Acute) Social History marital status: number of children: 4 household members: spouse lives independently: Yes caregiver/support person: No housing: house pets and animals: No education level: college occupational status: other Previous occupational history: [employer]: [employer] travel history: recent leisure activities: exercise and other Smoking Status: Former smoker Tobacco: How many years used: 15 Smokeless tobacco user: other quit status: quit date established alcohol intake: current substance use type: does not use Smoking Status: Former smoker alcohol intake frequency: a few times a month Substance Use Type: does not use Exam Narrative Exam Narrative: GENERAL 70 year old patient appears stated age. Well-nourished, well-developed patient, in mild distress. HEAD: Atraumatic. Normocephalic. EYES: Pupils equal round and reactive. Extraocular motions intact. No scleral icterus. No injection or drainage. ENT: Nose without bleeding, purulent drainage. Throat without erythema, tonsillar hypertrophy or exudate. Airway patent. NECK: Trachea midline. Non tender CARDIOVASCULAR: Regular rate and rhythm without murmurs, gallops, or rubs. RESPIRATORY: Clear to auscultation. Breath sounds equal bilaterally. No wheezes, rales, or rhonchi. GASTROINTESTINAL: Abdomen soft, non-tender, nondistended. EXTREMITIES: No edema or joint tenderness. BACK: Nontender without deformity or crepitance. No flank tenderness. NEURO: AOx3. SKIN: No rash or erythema of visible areas Initial Vital Signs Initial Vital Signs: Vital Signs Pulse Rate 72 04/06/20 22:40 Respiratory Rate 20 04/06/20 22:40 Blood Pressure 120/58 L 04/06/20 22:40 Pulse Oximetry 99 04/06/20 22:40 Course Orders Ordered: Discontinued Medications Sodium Chloride (Normal Saline 0.9%) 1,000 mls @ 150 mls/hr IV CONT KLAUS Vital Signs Vital signs: Vital Signs - 8 hr 04/07/20 00:30 Pulse Rate 59 L Respiratory Rate 14 Blood Pressure 115/84 Pulse Oximetry 98 MDM - Arrhythmia/Palpitations Lab Data Result diagrams: 04/06/20 22:20 04/06/20 22:20 Labs: Lab Results 04/06/20 04/06/20 04/06/20 Range/Units 22:20 22:20 22:20 WBC 7.4 (4.5-11.0) X10^3/uL RBC 4.27 L (4.5-5.9) X10^6/uL Hgb 13.6 (13.5-17.5) g/dL Hct 40.3 L (41-53) % MCV 94.4 (80-100) fL MCH 31.9 (26-34) PG MCHC 33.8 (30-36) % RDW 12.9 (11.6-14.8) % Plt Count 209 (150-400) X10^3/uL Neut % (Auto) 63.1 (50-75) % Lymph % (Auto) 26.1 (25-40) % [place] % (Auto) 8.7 (3-14) % Eos % (Auto) 1.5 L (2-4) % Baso % (Auto) 0.6 (0-2) % Neut # (Auto) 4700 (3040-3640) /uL Lymph # (Auto) 1900 (6272-0394) /uL [place] # (Auto) 600 (0-900) /uL Eos # (Auto) 100 (0-450) /uL Baso # (Auto) 0 (0-100) /uL Sodium 141 (137-145) mmol/L Potassium 3.4 (3.4-5.1) mmol/L Chloride 107 (98-107) mmol/L Carbon Dioxide 25 (22-32) mmol/L BUN 20 (9-20) mg/dL Creatinine 0.95 (0.66-1.25) mg/dL Estimated GFR > 60.0 (>60) mL/min BUN/Creatinine Ratio 21.1 (6-22) Glucose 82 (80-110) mg/dL Calcium 9.2 (8.4-10.2) mg/dL Magnesium 2.2 (1.6-2.3) mg/dL Total Creatine Kinase 122 (55-170) U/L CK-MB (CK-2) 1.00 (<2.37) ng/mL CK-MB (CK-2) Rel Index 0.8 L (1.5-5.0) % Troponin I < 0.012 (0.01-0.034) ng/mL TSH 1.76 (0.47-4.68) uIU/mL Discharge Plan Departure Patient Disposition: Home Clinical Impression: Palpitations, Frequent PVCs Discharge Date/Time: 04/07/20 00:31 Instructions: Premature Ventricular Beats Activity Restrictions/Additional Instructions: *You have been diagnosed with [palpitations, likely due to PVCs.] *What to do: *Take medications as directed. Avoid caffeine, nicotine, alcohol. *Follow up with your primary care provider in 2-3 days, call for an appointment. Let them know you were seen in the Emergency Department and that we ask that you be seen in follow up *Return to ER if you should have any new, worsening or concerning symptoms Prescriptions: No Action CA PANTOTHENATE/FOLIC ACID/VIT (MULTIVITAMIN) 1 tab PO Q DAY Qty: 0 RF: 0 [VITAMIN C] Qty: 0 RF: 0 atorvastatin [Lipitor] 10 MG tablet 10 mg PO HS Qty: 0 RF: 0 (DME) Resmed Airsense 10 CPAP Qty: 1 RF: 0 omeprazole 40 mg capsule,delayed release(DR/EC) 40 mg PO BID Qty: 180 RF: 3 loperamide 2 mg capsule 4 mg PO Q DAY PRN (Reason: loose stool) Qty: 60 RF: 3 Chondroitin Sulfate 1 cap PO BID RF: 0 vitamin B complex [Vitamins B Complex] Tablet 1 tab PO DAILY RF: 0 tadalafil 5 mg tablet 5 mg PO DAILY RF: 0 doxazosin 4 mg tablet 4 mg PO DAILY RF: 0 Referrals: Sushant Boyle MD [Primary Care Provider] -
[2020-04-06 22:59] LABS: BUN Creatinine Ratio 21.1 (6-22); Blood Urea Nitrogen 20 mg/dL (9-20); Calcium 9.2 mg/dL (8.4-10.2); Carbon Dioxide 25 mmol/L (22-32); Chloride 107 mmol/L (98-107); Creatine Kinase 122 U/L (55-170); Estimated Glomerular Filt Rate > 60.0 mL/min (>60); Glucose 82 mg/dL (80-110); HEMOLYSIS 21 (0-50); Magnesium 2.2 mg/dL (1.6-2.3); Potassium 3.4 mmol/L (3.4-5.1); Sodium 141 mmol/L (137-145)
[2020-04-06 23:11] LABS: Troponin I < 0.012 ng/mL (0.01-0.034)
[2020-04-06 23:14] LABS: CKMB % Relative Index 0.8 % (1.5-5.0)
[2020-04-06 23:55] LABS: Thyroid Stimulating Hormone 1.76 uIU/mL (0.47-4.68)
[2020-04-07 00:02] VITALS: BP 118/57; PULSE 59; RESP 18; O2SAT 97
[2020-04-07 00:30] VITALS: BP 115/84; PULSE 59; RESP 14; O2SAT 98
== END 2020-04-07 00:31 | disposition home or self-care (01) ==
PROVIDERS: Emergency Provider Emergency Medicine; PCP Internal Medicine
DX: R00.2 Palpitations (principal); I49.3 Ventricular premature depolarization
CPT/HCPCS: 80048; 82550; 82553; 83735; 84443; 84484; 85025; 93005; 99283; 99284

== ENCOUNTER 2020-04-11 07:30 | Outpatient (RCR) | payer MEDICARE, BC, SELFPAY ==
--- NOTE | 2020-02-08 11:19 | PT.OIE ---
Current Diagnoses Labyrinthine dysfunction, unspecified ear (02/08/20) Past Medical History (Last Reviewed 03/26/19 @ 23:38 by JOHN Sykes) Allergic rhinitis (Chronic 09/25/14) Elevated prostate specific antigen (PSA) (Chronic 09/29/17) Hernia (Acute) Hypertension (Chronic 05/21/11) Obstructive sleep apnea syndrome (Chronic 05/21/11) Plantar fasciitis of right foot (Acute) Primary insomnia (Chronic) Skin cancer (Acute) Visit Care Team Role Provider Type Sushant Boyle MD Attending Provider Physician Primary Care Provider Referring Provider Specialty: Internal Medicine Address: [address] [place] [address], [address], [facility] Email: [email or web address] Physical Therapy Initial Evaluation PT-OP-A Visit Information Start: 02/08/20 07:17 Freq: Status: Active Protocol: Document 02/08/20 09:00 MB (Rec: 02/08/20 09:21 MB [id number]) Out-Patient Physical Therapy Visit Information Visit Information Visit Type Initial Evaluation Visit Note Medicare, unlimited visits Visit Start Time 09:00 Visit Stop Time 09:45 Total Visit Minutes 45 Visit Number 1 Evaluation Information Evaluation Date 02/08/20 PT-OP-B Current Condition Start: 02/08/20 07:17 Freq: Status: Active Protocol: Document 02/08/20 09:00 MB (Rec: 02/08/20 09:21 MB [id number]) Current Condition History of Current Condition Onset Date 01/29/2020 Current Complaints Walking and quick movements of the head make dizziness worse History of Current Condition Pt bent over and was cutting toenails and then felt dizzy sitting up. He felt dizzy when waking up the next morning. Pt reports constant dizziness. Pt denies numbness and tingling, weakness, vision changes. He reports MORALES, recent start of overhead lifting, sinus and allergies, B12 deficiency, ear pressure. Pt denies neck pain. He describes symptoms as imbalance and light-headedness. He has been lifting overhead lately. Pt reports history of BPPV in 2016 or 2017. He has a history of vestibular dysfunction in 2018 and had PT. He describes his current symptoms as similar to 2018, just worse. He did see an ENT but does not recall findings. His hearing was normal both ears. Pt had 2 falls in 2018 and no falls this time. No history of stroke. His dad of stroke 2 months ago and he could not see his dad during COV. Pt denies DM, HTN and HLD. Pt states that he drinks a lot of coffe everyday--5 cups of caffeinated coffee. He drinks 1-2 glasses of water a day. He drinks 4 beers/wine a week. Prior Treatments and Tests PT for vestibular rehabilitation, tandem standing, tracking letter with head turns, bending over and turning head right and left Treatment Goals Patient/Caregiver Goals To have better balance and no dizziness PT-OP-C Subjective Start: 02/08/20 07:17 Freq: Status: Active Protocol: Document 02/08/20 09:00 MB (Rec: 02/08/20 09:21 MB [id number]) OP-PT Subjective Patient Comments Patient Comments See history of current condition PT-OP-D Balance Start: 02/08/20 07:17 Freq: Status: Active Protocol: Document 02/08/20 09:00 MB (Rec: 02/08/20 11:19 MB [id number]) OP-PT Balance Assessment Sitting Balance Static Sitting Balance Ability Normal Dynamic Sitting Balance Ability Normal Standing Balance Static Standing Balance Ability Normal Dynamic Standing Balance Ability Good Standing Balance Comments Mild imbalance when moving up to standing for orthostatic testing Balance Tests Other Other Balance Tests Performed Deferred today d/t triaging and educating pt about orthostatic hypotension, will add balance goal with intention to treat balance during treatment course Young Fall Scale Copyright Permission PT-OP-K Range of Motion Start: 02/08/20 07:17 Freq: Status: Active Protocol: Document 02/08/20 09:00 MB (Rec: 02/08/20 11:19 MB [id number]) Cervical Spine Range of Motion Cervical Spine Active Testing Position Sitting Comments Flexion and extension functional and no dizziness. Rotation right to 35 deg and left to 55 deg Cervical extension tightness with Hardin-Hallpike testing and pt presents with forward shoulders and so overhead presses/lifting may cause cervical strain/transient vertebral artery ischemia with position PT-OP-M Strength Start: 02/08/20 07:17 Freq: Status: Active Protocol: Document 02/08/20 09:00 MB (Rec: 02/08/20 11:19 MB [id number]) Shoulder Strength Shoulder Manual Muscle Testing Left Flexion 5 Normal Right Flexion 5 Normal Elbow/Forearm Strength Elbow and Forearm Manual Muscle Testing Left Extension (C7) 5 Normal Right Extension (C7) 5 Normal PT-OP-O Vestibular Start: 02/08/20 07:17 Freq: Status: Active Protocol: Document 02/08/20 09:00 MB (Rec: 02/08/20 11:19 [id number]) Vestibular Assessment Visual Testing Smooth Pursuits Horizontal Normal Smooth Pursuits Vertical Normal Saccades Horizontal Normal Gaze Evoked Nystagmus With Fixation Negative Thrust Head Positive Bilateral Convergence Test WNL Spontaneous Nystagmus Negative Positional Testing Ajith-Hallpike Negative Left,Negative Right PT-OP-Q Treatments Start: 02/08/20 07:17 Freq: Status: Active Protocol: Document 02/08/20 09:00 MB (Rec: 02/08/20 11:19 [id number]) Self-Care/Home Management Treatment Education Other Education Education on orthostatic hypotension including provision of handouts, symptomology, causes ( extensive ed on hydration), talking with urologist about symptoms and hydration in setting of prostate CA and medications to keep the pressure down in my prostate PT-OP-T Assessment and Plan Start: 02/08/20 07:17 Freq: Status: Active Protocol: Document 02/08/20 09:00 MB (Rec: 02/08/20 11:19 [id number]) Physical Therapy Assessment Rehab Potential Rehabilitation Potential Good Evaluation Complexity Number of Personal Factors/Comorbidities 1-2 Number of Body Systems Impaired 1-2 Clinical Presentation at Evaluation Evolving Impairments Impairments Balance,Posture,ROM,Soft Tissue Mobility,Transfers, Vestibular,Visual Motor Other Impairments Pt presents with scab on right nose and states that he has extensive skin cancer history and that he gets this worked on by doctor often Coordination with finger to nose and rapid supination and pronation B hands normal Slow toe tapping over opposite foot B Pen light not working to assess pupil dilation B head thrust positive for hypofunction, worse on the right Positive orthostatic hypotension this date with testing Goals Two Impairment DHI score reflects high perception of handicap Group Home Goal (LTG) Pt will present with an improved DHI score to reflect low perception of handicap by 04/09/2020. LTG Duration 8 weeks [employer] Professor Goal (LTG) Pt will perform WNLs on FGA to decrease fall risk and increase confidence with gait by 04/09/2020. LTG Duration 8 weeks 2 Group Home Goal (LTG) Pt will perform progressive HEP with I including VOR, postural, flexibility, shoulder, scapular and core strengthening and balance exercises to improve symptoms and balance by 04/09/2020. LTG Duration 8 weeks 1 Group Home Goal (LTG) Pt will gait train 1500 ft in 6 minutes to reflect improved symptomology with increasing gait distance by 04/09/2020. LTG Duration 8 weeks Assessment Summary Assessment Pt is a 69 y/o male presenting with reports of history of dizziness and recent onset of acute dizziness, worse when sitting up from clipping toe nails and then the morning afterwards while in bed. Pt reports that his dad 2 months ago of stroke in [place] and that he could not visit him. Pt started lifting weights overhead 1 month ago. He reports drinking 5 cups of caffeinated coffee and 1 alcoholic beverage and 1-2 glasses of water daily. Orthostatic hypotension testing is positive today with greater than 10 mmHg drop in both systolic and diastolic BP from supine to standing and pt reporting light-headedness symptoms. BP and HR in left UE are: supine 142/76, 59; standing 130/65, 69 and standing 1' 136/75, 65. Pt also presents with B hypofunction with VOR head thrust this date with severe delay in corrective saccade with thrust out to the right. BPPV testing is negative. PT favors orthostatic hypotension , VOR hypofunction, cervical/ transient vertebral artery issues with overhead lifitng as the three major contributors to his presentation. Balance and proprioception to be assess in future treatments. Deferred today d/t need to triage in alloted time. Physical Therapy Plan Frequency and Duration Frequency of Treatment 2x/Week Duration of Treatment 8 weeks Plan of Care Start Date 02/08/20 Plan of Care End Date 04/09/20 Therapeutic Interventions Therapeutic Interventions Balance Training,Canalithic Repositioning,Coordination Training,Gait Training,Home Exercise Program,Joint Mobilizations,Manual Therapy, Neuromuscular Re-education, Patient/Caregiver Education, Self-Care/Home Management,Soft Tissue Mobilization,Taping, Therapeutic Activities, Therapeutic Exercises, Vestibular Rehabilitation Modalities Cold Pack/Ice Massage,Electric Stimulation,Hot Packs Next Visit Focus/Plan Next Note Type Treatment Note Next Visit Plan Asseses balance, proprioception
--- NOTE | 2020-02-08 11:20 | PT.OPPOC ---
Addendum entered and electronically signed by Magalis Hammond PT 02/08/20 11:20: Need to fax Original Note: Physical, Occupational & Speech Therapy At [facility] Current Diagnoses Labyrinthine dysfunction, unspecified ear (02/08/20) Visit Care Team Role Provider Type Sushant Boyle MD Attending Provider Physician Primary Care Provider Referring Provider Specialty: Internal Medicine Address: [address] [place] [address], [address], [place], [address] Email: [email or web address] Plan Of Care PT-OP-T Assessment and Plan Start: 02/08/20 07:17 Freq: Status: Active Protocol: Document 02/08/20 09:00 MB (Rec: 02/08/20 11:19 MB [id number]) Physical Therapy Assessment Rehab Potential Rehabilitation Potential Good Evaluation Complexity Number of Personal Factors/Comorbidities 1-2 Number of Body Systems Impaired 1-2 Clinical Presentation at Evaluation Evolving Impairments Impairments Balance,Posture,ROM,Soft Tissue Mobility,Transfers, Vestibular,Visual Motor Other Impairments Pt presents with scab on right nose and states that he has extensive skin cancer history and that he gets this worked on by doctor often Coordination with finger to nose and rapid supination and pronation B hands normal Slow toe tapping over opposite foot B Pen light not working to assess pupil dilation B head thrust positive for hypofunction, worse on the right Positive orthostatic hypotension this date with testing Goals Two Impairment DHI score reflects high perception of handicap Pneumatic Tool Repairer Goal (LTG) Pt will present with an improved DHI score to reflect low perception of handicap by 04/09/2020. LTG Duration 8 weeks One Pneumatic Tool Repairer Goal (LTG) Pt will perform WNLs on FGA to decrease fall risk and increase confidence with gait by 04/09/2020. LTG Duration 8 weeks 2 Pneumatic Tool Repairer Goal (LTG) Pt will perform progressive HEP with I including VOR, postural, flexibility, shoulder, scapular and core strengthening and balance exercises to improve symptoms and balance by 04/09/2020. LTG Duration 8 weeks 1 Penitentiary Goal (LTG) Pt will gait train 1500 ft in 6 minutes to reflect improved symptomology with increasing gait distance by 04/09/2020. LTG Duration 8 weeks Assessment Summary Assessment Pt is a 69 y/o male presenting with reports of history of dizziness and recent onset of acute dizziness, worse when sitting up from clipping toe nails and then the morning afterwards while in bed. Pt reports that his dad 2 months ago of stroke in [place] and that he could not visit him. Pt started lifting weights overhead 1 month ago. He reports drinking 5 cups of caffeinated coffee and 1 alcoholic beverage and 1-2 glasses of water daily. Orthostatic hypotension testing is positive today with greater than 10 mmHg drop in both systolic and diastolic BP from supine to standing and pt reporting light-headedness symptoms. BP and HR in left UE are: supine 142/76, 59; standing 130/65, 69 and standing 1' 136/75, 65. Pt also presents with B hypofunction with VOR head thrust this date with severe delay in corrective saccade with thrust out to the right. BPPV testing is negative. PT favors orthostatic hypotension , VOR hypofunction, cervical/ transient vertebral artery issues with overhead lifitng as the three major contributors to his presentation. Balance and proprioception to be assess in future treatments. Deferred today d/t need to triage in alloted time. Physical Therapy Plan Frequency and Duration Frequency of Treatment 2x/Week Duration of Treatment 8 weeks Plan of Care Start Date 02/08/20 Plan of Care End Date 04/09/20 Therapeutic Interventions Therapeutic Interventions Balance Training,Canalithic Repositioning,Coordination Training,Gait Training,Home Exercise Program,Joint Mobilizations,Manual Therapy, Neuromuscular Re-education, Patient/Caregiver Education, Self-Care/Home Management,Soft Tissue Mobilization,Taping, Therapeutic Activities, Therapeutic Exercises, Vestibular Rehabilitation Modalities Cold Pack/Ice Massage,Electric Stimulation,Hot Packs Next Visit Focus/Plan Next Note Type Treatment Note Next Visit Plan Asseses balance, proprioception Plan of Care Dates Plan of Care Start Date 02/08/20 Plan of Care End Date 04/09/20 Electronically Signed by: Magalis Hammond PT 02/08/20 [id number] Please Sign and Return: I have reviewed this Plan of Care and certify that the skilled therapy services above are required to meet the patient?s needs. Physician Signature Date Printed Name and Credentials Clinical Instructor Signature Printed Name and Credentials
--- NOTE | 2020-02-12 12:04 | PT.OTN ---
Current Diagnoses Labyrinthine dysfunction, unspecified ear (02/12/20) Physical Therapy Treatment Note PT-OP-A Visit Information Start: 02/08/20 07:17 Freq: Status: Active Protocol: Document 02/12/20 11:15 DCW (Rec: 02/12/20 12:04 DCW [id number]) Out-Patient Physical Therapy Visit Information Visit Information Visit Type Treatment Note Visit Note Medicare, unlimited visits Visit Start Time 11:15 Visit Stop Time 12:00 Total Visit Minutes 45 Visit Number 2 Evaluation Information Evaluation Date 02/08/20 PT-OP-B Current Condition Start: 02/08/20 07:17 Freq: Status: Active Protocol: Document 02/08/20 09:00 MB (Rec: 02/08/20 09:21 MB [id number]) Current Condition History of Current Condition Onset Date 01/29/2020 Current Complaints Walking and quick movements of the head make dizziness worse History of Current Condition Pt bent over and was cutting toenails and then felt dizzy sitting up. He felt dizzy when waking up the next morning. Pt reports constant dizziness. Pt denies numbness and tingling, weakness, vision changes. He reports MORALES, recent start of overhead lifting, sinus and allergies, B12 deficiency, ear pressure. Pt denies neck pain. He describes symptoms as imbalance and light-headedness. He has been lifting overhead lately. Pt reports history of BPPV in 2016 or 2017. He has a history of vestibular dysfunction in 2018 and had PT. He describes his current symptoms as similar to 2018, just worse. He did see an ENT but does not recall findings. His hearing was normal both ears. Pt had 2 falls in 2018 and no falls this time. No history of stroke. His dad of stroke 2 months ago and he could not see his dad during COVID. Pt denies DM, HTN and HLD. Pt states that he drinks a lot of coffe everyday--5 cups of caffeinated coffee. He drinks 1-2 glasses of water a day. He drinks 4 beers/wine a week. Prior Treatments and Tests PT for vestibular rehabilitation, tandem standing, tracking letter with head turns, bending over and turning head right and left Treatment Goals Patient/Caregiver Goals To have better balance and no dizziness PT-OP-C Subjective Start: 02/08/20 07:17 Freq: Status: Active Protocol: Document 02/12/20 11:15 DCW (Rec: 02/12/20 12:04 DCW [id number]) OP-PT Subjective Patient Comments Patient Comments Pt reports that although he is still dizzy, he is not nearly as severe as he had been. Pt notes he began performing the HEP exersices that he had been given last time he was through PT. PT-OP-D Balance Start: 02/08/20 07:17 Freq: Status: Active Protocol: Document 02/12/20 11:15 DCW (Rec: 02/12/20 12:04 DCW [id number]) Balance Tests [place] Balance Test [place] Balance Test Score 55/56 [place] Impairment Rating 1 to 19% Impaired (Score 45-55 ) CTSIB CTSIB Position 1 30 seconds CTSIB Position 2 30 seconds CTSIB Position 3 30 seconds CTSIB Position 4 30 seconds CTSIB Position 5 30 seconds CTSIB Position 6 30 seconds PT-OP-E Functional Tests Start: 02/12/20 12:04 Freq: Status: Active Protocol: Document 02/12/20 11:15 DCW (Rec: 02/12/20 12:04 DCW [id number]) Functional Tests Functional Gait Assessment Score 27/30 Functional Gait Assessment Impairment 1 to <20% Impaired (Score 25- Rating 29) PT-OP-K Range of Motion Start: 02/08/20 07:17 Freq: Status: Active Protocol: Document 02/08/20 09:00 MB (Rec: 02/08/20 11:19 MB [id number]) Cervical Spine Range of Motion Cervical Spine Active Testing Position Sitting Comments Flexion and extension functional and no dizziness. Rotation right to 35 deg and left to 55 deg Cervical extension tightness with Wells-Hallpike testing and pt presents with forward shoulders and so overhead presses/lifting may cause cervical strain/transient vertebral artery ischemia with position PT-OP-M Strength Start: 02/08/20 07:17 Freq: Status: Active Protocol: Document 02/08/20 09:00 MB (Rec: 02/08/20 11:19 MB [id number]) Shoulder Strength Shoulder Manual Muscle Testing Left Flexion 5 Normal Right Flexion 5 Normal Elbow/Forearm Strength Elbow and Forearm Manual Muscle Testing Left Extension (C7) 5 Normal Right Extension (C7) 5 Normal PT-OP-O Vestibular Start: 02/08/20 07:17 Freq: Status: Active Protocol: Document 02/08/20 09:00 MB (Rec: 02/08/20 11:19 MB [id number]) Vestibular Assessment Visual Testing Smooth Pursuits Horizontal Normal Smooth Pursuits Vertical Normal Saccades Horizontal Normal Gaze Evoked Nystagmus With Fixation Negative Thrust Head Positive Bilateral Convergence Test WNL Spontaneous Nystagmus Negative Positional Testing Ajith-Hallpike Negative Left,Negative Right PT-OP-Q Treatments Start: 02/08/20 07:17 Freq: Status: Active Protocol: Document 02/12/20 11:15 DCW (Rec: 02/12/20 12:04 DCW [id number]) Neuro Re-Education Treatment Vestibular Rehabilitation Targets Details Laser targeting on [place] Background eyes closed Distance From Target 90 cm Position [place] foam stance Comments Average of 1-2 degrees off in all directions VOR Retraining Details Laser cursive Background [place] print Distance From Target 3 feet Position Mcnair foam Other Activities 2 Details Step, bow with head turns 1 Details Testing Comments CTSIB, [place], FGA PT-OP-T Assessment and Plan Start: 02/08/20 07:17 Freq: Status: Active Protocol: Document 02/12/20 11:15 DCW (Rec: 02/12/20 12:04 DCW [id number]) Physical Therapy Assessment Impairments Impairments Balance,Posture,ROM,Soft Tissue Mobility,Transfers, Vestibular,Visual Motor Other Impairments Pt presents with scab on right nose and states that he has extensive skin cancer history and that he gets this worked on by doctor often Coordination with finger to nose and rapid supination and pronation B hands normal Slow toe tapping over opposite foot B Pen light not working to assess pupil dilation B head thrust positive for hypofunction, worse on the right Positive orthostatic hypotension this date with testing Goals Two Impairment DHI score reflects high perception of handicap Communications Project Lead Goal (LTG) Pt will present with an improved DHI score to reflect low perception of handicap by 04/09/2020. LTG Duration 8 weeks One Longterm Goal (LTG) Pt will perform WNLs on FGA to decrease fall risk and increase confidence with gait by 04/09/2020. LTG Duration 8 weeks 2 Longterm Goal (LTG) Pt will perform progressive HEP with I including VOR, postural, flexibility, shoulder, scapular and core strengthening and balance exercises to improve symptoms and balance by 04/09/2020. LTG Duration 8 weeks 1 Communications Project Lead Goal (LTG) Pt will gait train 1500 ft in 6 minutes to reflect improved symptomology with increasing gait distance by 04/09/2020. LTG Duration 8 weeks Assessment Summary Assessment Pt admits to feeling much better today, doing well with prior HEP. Pt [place] and FGA testing show minimal falls risk. Pt had mild subjective complaints with VOR reeducation and head turns during FGA. Pt to continue with previous HEP. Physical Therapy Plan Frequency and Duration Frequency of Treatment 2x/Week Duration of Treatment 8 weeks Plan of Care Start Date 02/08/20 Plan of Care End Date 04/09/20 Therapeutic Interventions Therapeutic Interventions Balance Training,Canalithic Repositioning,Coordination Training,Gait Training,Home Exercise Program,Joint Mobilizations,Manual Therapy, Neuromuscular Re-education, Patient/Caregiver Education, Self-Care/Home Management,Soft Tissue Mobilization,Taping, Therapeutic Activities, Therapeutic Exercises, Vestibular Rehabilitation Modalities Cold Pack/Ice Massage,Electric Stimulation,Hot Packs Next Visit Focus/Plan Next Note Type Treatment Note Next Visit Plan VOR retraining, balance /c head turns
--- NOTE | 2020-02-14 12:12 | PT.OTN ---
Current Diagnoses Labyrinthine dysfunction, unspecified ear (02/14/20) Physical Therapy Treatment Note PT-OP-A Visit Information Start: 02/08/20 07:17 Freq: Status: Active Protocol: Document 02/14/20 09:00 MB (Rec: 02/14/20 09:49 MB [id number]) Out-Patient Physical Therapy Visit Information Visit Information Visit Type Treatment Note Visit Note Medicare, unlimited visits Visit Start Time 09:00 Visit Stop Time 09:45 Total Visit Minutes 45 Visit Number 3 Evaluation Information Evaluation Date 02/08/20 PT-OP-B Current Condition Start: 02/08/20 07:17 Freq: Status: Active Protocol: Document 02/08/20 09:00 MB (Rec: 02/08/20 09:21 MB [id number]) Current Condition History of Current Condition Onset Date 01/29/2020 Current Complaints Walking and quick movements of the head make dizziness worse History of Current Condition Pt bent over and was cutting toenails and then felt dizzy sitting up. He felt dizzy when waking up the next morning. Pt reports constant dizziness. Pt denies numbness and tingling, weakness, vision changes. He reports MORALES, recent start of overhead lifting, sinus and allergies, B12 deficiency, ear pressure. Pt denies neck pain. He describes symptoms as imbalance and light-headedness. He has been lifting overhead lately. Pt reports history of BPPV in 2016 or 2017. He has a history of vestibular dysfunction in 2018 and had PT. He describes his current symptoms as similar to 2018, just worse. He did see an ENT but does not recall findings. His hearing was normal both ears. Pt had 2 falls in 2018 and no falls this time. No history of stroke. His dad of stroke 2 months ago and he could not see his dad during COVID. Pt denies DM, HTN and HLD. Pt states that he drinks a lot of coffe everyday--5 cups of caffeinated coffee. He drinks 1-2 glasses of water a day. He drinks 4 beers/wine a week. Prior Treatments and Tests PT for vestibular rehabilitation, tandem standing, tracking letter with head turns, bending over and turning head right and left Treatment Goals Patient/Caregiver Goals To have better balance and no dizziness PT-OP-C Subjective Start: 02/08/20 07:17 Freq: Status: Active Protocol: Document 02/14/20 09:00 MB (Rec: 02/14/20 09:49 MB [id number]) OP-PT Subjective Patient Comments Patient Comments Pt states that he has a little bit of a MORALES that might be related to dizziness. He thinks that he has regressed a little over the last two days . It is hard to nail it down. He feels like he just got off a carnival ride. Quick turns aggravate it. He feels a little woozy. Pt only drank two cups of coffee this morning. PT-OP-D Balance Start: 02/08/20 07:17 Freq: Status: Active Protocol: Document 02/12/20 11:15 DCW (Rec: 02/12/20 12:04 DCW [id number]) Balance Tests [place] Balance Test [place] Balance Test Score 55/56 [place] Impairment Rating 1 to 19% Impaired (Score 45-55 ) CTSIB CTSIB Position 1 30 seconds CTSIB Position 2 30 seconds CTSIB Position 3 30 seconds CTSIB Position 4 30 seconds CTSIB Position 5 30 seconds CTSIB Position 6 30 seconds PT-OP-E Functional Tests Start: 02/12/20 12:04 Freq: Status: Active Protocol: Document 02/12/20 11:15 DCW (Rec: 02/12/20 12:04 DCW [id number]) Functional Tests Functional Gait Assessment Score 27/30 Functional Gait Assessment Impairment 1 to <20% Impaired (Score 25- Rating 29) PT-OP-K Range of Motion Start: 02/08/20 07:17 Freq: Status: Active Protocol: Document 02/08/20 09:00 MB (Rec: 02/08/20 11:19 MB [id number]) Cervical Spine Range of Motion Cervical Spine Active Testing Position Sitting Comments Flexion and extension functional and no dizziness. Rotation right to 35 deg and left to 55 deg Cervical extension tightness with Ajith-Hallpike testing and pt presents with forward shoulders and so overhead presses/lifting may cause cervical strain/transient vertebral artery ischemia with position PT-OP-M Strength Start: 02/08/20 07:17 Freq: Status: Active Protocol: Document 02/08/20 09:00 MB (Rec: 02/08/20 11:19 MB [id number]) Shoulder Strength Shoulder Manual Muscle Testing Left Flexion 5 Normal Right Flexion 5 Normal Elbow/Forearm Strength Elbow and Forearm Manual Muscle Testing Left Extension (C7) 5 Normal Right Extension (C7) 5 Normal PT-OP-O Vestibular Start: 02/08/20 07:17 Freq: Status: Active Protocol: Document 02/08/20 09:00 MB (Rec: 02/08/20 11:19 MB [id number]) Vestibular Assessment Visual Testing Smooth Pursuits Horizontal Normal Smooth Pursuits Vertical Normal Saccades Horizontal Normal Gaze Evoked Nystagmus With Fixation Negative Thrust Head Positive Bilateral Convergence Test WNL Spontaneous Nystagmus Negative Positional Testing [place]-Hallpike Negative Left,Negative Right PT-OP-Q Treatments Start: 02/08/20 07:17 Freq: Status: Active Protocol: Document 02/14/20 09:00 MB (Rec: 02/14/20 12:03 MB [id number]) Neuro Re-Education Treatment Other Activities 7 Comments Ongoing neuro/vestibular screening today in setting that pt states that he has worsening symptoms today: pt presents with faint downbeating nystagmus that is spontaneous and at rest. It does slightly increase with head extension and rotation to the right in supine. It does not increase but stays the same with head extended and rotated to the left. PT has a second therapist validate findings. B roll test negative for increasing nystagmus and dizziness. Pt presents with BP drop with supine to stand after 30 sec standing and states that he is minimally symptomatic. PT ed pt that PT will call Dr. Boyle office and PT anticipates appointment with Dr. Boyle. PT-OP-T Assessment and Plan Start: 02/08/20 07:17 Freq: Status: Active Protocol: Document 02/14/20 09:00 MB (Rec: 02/14/20 09:49 MB [id number]) Physical Therapy Assessment Impairments Impairments Balance,Posture,ROM,Soft Tissue Mobility,Transfers, Vestibular,Visual Motor Other Impairments Pt presents with scab on right nose and states that he has extensive skin cancer history and that he gets this worked on by doctor often Coordination with finger to nose and rapid supination and pronation B hands normal Slow toe tapping over opposite foot B Pen light not working to assess pupil dilation B head thrust positive for hypofunction, worse on the right Positive orthostatic hypotension this date with testing Goals Two Impairment DHI score reflects high perception of handicap Residential Goal (LTG) Pt will present with an improved DHI score to reflect low perception of handicap by 04/09/2020. LTG Duration 8 weeks One Cardiology Consultant Goal (LTG) Pt will perform WNLs on FGA to decrease fall risk and increase confidence with gait by 04/09/2020. LTG Duration 8 weeks 2 Residential Goal (LTG) Pt will perform progressive HEP with I including VOR, postural, flexibility, shoulder, scapular and core strengthening and balance exercises to improve symptoms and balance by 04/09/2020. LTG Duration 8 weeks 1 Residential Goal (LTG) Pt will gait train 1500 ft in 6 minutes to reflect improved symptomology with increasing gait distance by 04/09/2020. LTG Duration 8 weeks Assessment Summary Assessment Orthostatic hypotension assessment with BP and HR in right proximal UE: 135/73, 60; 126/71, 69; standing 30 sec 120/70, 68; standing 1' 130/69 , 66. Pt reports mild increase in imbalance symptoms. Given pt's spontaneous downbeat nystagmus, description of symptom onset, reports that he is doing a little worse today , recommend follow-up with Dr. Boyle and possible dxs of posterior circulation and brain. PT spoke with nurse, Serenity, to report findings and doctor office to call pt for appointment tomorrow. Physical Therapy Plan Frequency and Duration Frequency of Treatment 2x/Week Duration of Treatment 8 weeks Plan of Care Start Date 02/08/20 Plan of Care End Date 04/09/20 Therapeutic Interventions Therapeutic Interventions Balance Training,Canalithic Repositioning,Coordination Training,Gait Training,Home Exercise Program,Joint Mobilizations,Manual Therapy, Neuromuscular Re-education, Patient/Caregiver Education, Self-Care/Home Management,Soft Tissue Mobilization,Taping, Therapeutic Activities, Therapeutic Exercises, Vestibular Rehabilitation Modalities Cold Pack/Ice Massage,Electric Stimulation,Hot Packs Other Referrals/Consults Referrals/Consults Recommended Return to Dr. Boyle, possible dxs for posterior circulation and brain given presentation Next Visit Focus/Plan Next Note Type Treatment Note Next Visit Plan VOR retraining, check cervical vs vestibular stool turn test , 5 minute hold of over pressure cervical rotation to roughly assess vertebral artery
--- NOTE | 2020-02-21 15:51 | PT.OTN ---
Current Diagnoses Labyrinthine dysfunction, unspecified ear (02/21/20) Physical Therapy Treatment Note PT-OP-A Visit Information Start: 02/08/20 07:17 Freq: Status: Active Protocol: Document 02/21/20 09:58 MB (Rec: 02/21/20 10:34 MB [id number]) Out-Patient Physical Therapy Visit Information Visit Information Visit Type Treatment Note Visit Note Medicare, unlimited Pt arrives 13 minutes late to appointment Visit Start Time 09:58 Visit Stop Time 10:30 Total Visit Minutes 32 Visit Number 4 PT-OP-B Current Condition Start: 02/08/20 07:17 Freq: Status: Active Protocol: Document 02/08/20 09:00 MB (Rec: 02/08/20 09:21 MB [id number]) Current Condition History of Current Condition Onset Date 01/29/2020 Current Complaints Walking and quick movements of the head make dizziness worse History of Current Condition Pt bent over and was cutting toenails and then felt dizzy sitting up. He felt dizzy when waking up the next morning. Pt reports constant dizziness. Pt denies numbness and tingling, weakness, vision changes. He reports MORALES, recent start of overhead lifting, sinus and allergies, B12 deficiency, ear pressure. Pt denies neck pain. He describes symptoms as imbalance and light-headedness. He has been lifting overhead lately. Pt reports history of BPPV in 2016 or 2017. He has a history of vestibular dysfunction in 2018 and had PT. He describes his current symptoms as similar to 2018, just worse. He did see an ENT but does not recall findings. His hearing was normal both ears. Pt had 2 falls in 2018 and no falls this time. No history of stroke. His dad of stroke 2 months ago and he could not see his dad during COVID. Pt denies DM, HTN and HLD. Pt states that he drinks a lot of coffe everyday--5 cups of caffeinated coffee. He drinks 1-2 glasses of water a day. He drinks 4 beers/wine a week. Prior Treatments and Tests PT for vestibular rehabilitation, tandem standing, tracking letter with head turns, bending over and turning head right and left Treatment Goals Patient/Caregiver Goals To have better balance and no dizziness PT-OP-C Subjective Start: 02/08/20 07:17 Freq: Status: Active Protocol: Document 02/21/20 09:58 MB (Rec: 02/21/20 10:34 MB [id number]) OP-PT Subjective Patient Comments Patient Comments Pt states that he is doing about the same. He states that Dr. Boyle will have him in around the if he is still symptomatic. Pt is going to have a MRI guided bx for prostate CA in [place] in April . PT-OP-D Balance Start: 02/08/20 07:17 Freq: Status: Active Protocol: Document 02/12/20 11:15 DCW (Rec: 02/12/20 12:04 DCW [id number]) Balance Tests [place] Balance Test [place] Balance Test Score 55/56 [place] Impairment Rating 1 to 19% Impaired (Score 45-55 ) CTSIB CTSIB Position 1 30 seconds CTSIB Position 2 30 seconds CTSIB Position 3 30 seconds CTSIB Position 4 30 seconds CTSIB Position 5 30 seconds CTSIB Position 6 30 seconds PT-OP-E Functional Tests Start: 02/12/20 12:04 Freq: Status: Active Protocol: Document 02/12/20 11:15 DCW (Rec: 02/12/20 12:04 DCW [id number]) Functional Tests Functional Gait Assessment Score 27/30 Functional Gait Assessment Impairment 1 to <20% Impaired (Score 25- Rating 29) PT-OP-K Range of Motion Start: 02/08/20 07:17 Freq: Status: Active Protocol: Document 02/08/20 09:00 MB (Rec: 02/08/20 11:19 MB [id number]) Cervical Spine Range of Motion Cervical Spine Active Testing Position Sitting Comments Flexion and extension functional and no dizziness. Rotation right to 35 deg and left to 55 deg Cervical extension tightness with [place]-Hallpike testing and pt presents with forward shoulders and so overhead presses/lifting may cause cervical strain/transient vertebral artery ischemia with position PT-OP-M Strength Start: 02/08/20 07:17 Freq: Status: Active Protocol: Document 02/08/20 09:00 MB (Rec: 02/08/20 11:19 MB [id number]) Shoulder Strength Shoulder Manual Muscle Testing Left Flexion 5 Normal Right Flexion 5 Normal Elbow/Forearm Strength Elbow and Forearm Manual Muscle Testing Left Extension (C7) 5 Normal Right Extension (C7) 5 Normal PT-OP-O Vestibular Start: 02/08/20 07:17 Freq: Status: Active Protocol: Document 02/08/20 09:00 MB (Rec: 02/08/20 11:19 MB [id number]) Vestibular Assessment Visual Testing Smooth Pursuits Horizontal Normal Smooth Pursuits Vertical Normal Saccades Horizontal Normal Gaze Evoked Nystagmus With Fixation Negative Thrust Head Positive Bilateral Convergence Test WNL Spontaneous Nystagmus Negative Positional Testing Ajith-Hallpike Negative Left,Negative Right PT-OP-Q Treatments Start: 02/08/20 07:17 Freq: Status: Active Protocol: Document 02/21/20 09:58 MB (Rec: 02/21/20 15:51 MB [id number]) Neuro Re-Education Treatment Other Activities Detailed ongoing neuromuscular and vestibular testing Comments 1-HINTS exam negative for spontaneous nystagmus and test of skew. Negative VOR cancellation, positive Head Thrust B with slower corrective saccade with head thrust out to the right 2-No spontaneous nystagmus with Frenzel lenses donned with head neutral or when PT applying prolonged overpressure with cervical rotation in sitting (up to 3 minutes both sides) 3-Finger to nose, toe touch crossing over opposite foot and rapid pronation and supination all negative B 4-Positive imbalance with Tandem gait and pt has to reach for wall on the right to prevent fall 5-Negative positional vertigo testing (BPPV) for B Ajith- Hallpike and Roll Tests 6-Symptoms with active cervical extension and rotation, greatest with looking up to the left in sitting 7-AROM cervical extension and back to neutral x5 negative for sxs. Cervical extension and full flexion x5 provoke mild sxs 8-Quick spin on stool with head in neutral provokes more symptoms with head in alignment with spine to the left compared right and compared with spin with head forward facing and pt rotates body right and left Findings indicative of: no BPPV (positional vertigo), positive VOR hypofunction; positive high level balance deficits; positive cervical components to dizziness; positive orthostatic hypotension found previous treatment date PT-OP-T Assessment and Plan Start: 02/08/20 07:17 Freq: Status: Active Protocol: Document 02/21/20 09:58 MB (Rec: 02/21/20 10:34 MB [id number]) Physical Therapy Assessment Impairments Impairments Balance,Posture,ROM,Soft Tissue Mobility,Transfers, Vestibular,Visual Motor Other Impairments Pt presents with scab on right nose and states that he has extensive skin cancer history and that he gets this worked on by doctor often Coordination with finger to nose and rapid supination and pronation B hands normal Slow toe tapping over opposite foot B Pen light not working to assess pupil dilation B head thrust positive for hypofunction, worse on the right Positive orthostatic hypotension this date with testing Goals Two Impairment DHI score reflects high perception of handicap Chronograph Operator Goal (LTG) Pt will present with an improved DHI score to reflect low perception of handicap by 04/09/2020. LTG Duration 8 weeks One Detention Goal (LTG) Pt will perform WNLs on FGA to decrease fall risk and increase confidence with gait by 04/09/2020. LTG Duration 8 weeks 2 Chronograph Operator Goal (LTG) Pt will perform progressive HEP with I including VOR, postural, flexibility, shoulder, scapular and core strengthening and balance exercises to improve symptoms and balance by 04/09/2020. LTG Duration 8 weeks 1 Detention Goal (LTG) Pt will gait train 1500 ft in 6 minutes to reflect improved symptomology with increasing gait distance by 04/09/2020. LTG Duration 8 weeks Assessment Summary Assessment Findings today indicate at least three components to patient's symptoms: postive VOR head thrust test B, greater saccade delay with thrust out to the right; cervicogenic components d/t discomfort and crepitus when dizzy with lying down and known orthostatic hypotension as found last treatment. BPPV is once again negative. Anticipate asssessing VOR with DVA eye chart testing and exercise in future treatments. Physical Therapy Plan Frequency and Duration Frequency of Treatment 2x/Week Duration of Treatment 8 weeks Plan of Care Start Date 02/08/20 Plan of Care End Date 04/09/20 Therapeutic Interventions Therapeutic Interventions Balance Training,Canalithic Repositioning,Coordination Training,Gait Training,Home Exercise Program,Joint Mobilizations,Manual Therapy, Neuromuscular Re-education, Patient/Caregiver Education, Self-Care/Home Management,Soft Tissue Mobilization,Taping, Therapeutic Activities, Therapeutic Exercises, Vestibular Rehabilitation Modalities Cold Pack/Ice Massage,Electric Stimulation,Hot Packs Next Visit Focus/Plan Next Note Type Treatment Note Next Visit Plan VOR DVA testing and exercises if appropriate
--- NOTE | 2020-02-23 10:43 | PT.OTN ---
Current Diagnoses Labyrinthine dysfunction, unspecified ear (02/23/20) Physical Therapy Treatment Note PT-OP-A Visit Information Start: 02/08/20 07:17 Freq: Status: Active Protocol: Document 02/23/20 09:48 DCW (Rec: 02/23/20 10:42 DCW [id number]) Out-Patient Physical Therapy Visit Information Visit Information Visit Type Treatment Note Visit Start Time 09:48 Visit Stop Time 10:30 Total Visit Minutes 42 Visit Number 5 Evaluation Information Evaluation Date 02/08/20 PT-OP-B Current Condition Start: 02/08/20 07:17 Freq: Status: Active Protocol: Document 02/08/20 09:00 MB (Rec: 02/08/20 09:21 MB [id number]) Current Condition History of Current Condition Onset Date 01/29/2020 Current Complaints Walking and quick movements of the head make dizziness worse History of Current Condition Pt bent over and was cutting toenails and then felt dizzy sitting up. He felt dizzy when waking up the next morning. Pt reports constant dizziness. Pt denies numbness and tingling, weakness, vision changes. He reports MORALES, recent start of overhead lifting, sinus and allergies, B12 deficiency, ear pressure. Pt denies neck pain. He describes symptoms as imbalance and light-headedness. He has been lifting overhead lately. Pt reports history of BPPV in 2016 or 2017. He has a history of vestibular dysfunction in 2018 and had PT. He describes his current symptoms as similar to 2018, just worse. He did see an ENT but does not recall findings. His hearing was normal both ears. Pt had 2 falls in 2018 and no falls this time. No history of stroke. His dad of stroke 2 months ago and he could not see his dad during COVID. Pt denies DM, HTN and HLD. Pt states that he drinks a lot of coffe everyday--5 cups of caffeinated coffee. He drinks 1-2 glasses of water a day. He drinks 4 beers/wine a week. Prior Treatments and Tests PT for vestibular rehabilitation, tandem standing, tracking letter with head turns, bending over and turning head right and left Treatment Goals Patient/Caregiver Goals To have better balance and no dizziness PT-OP-C Subjective Start: 02/08/20 07:17 Freq: Status: Active Protocol: Document 02/23/20 09:48 DCW (Rec: 02/23/20 10:42 DCW [id number]) OP-PT Subjective Patient Comments Patient Comments I'm about the same. PT-OP-D Balance Start: 02/08/20 07:17 Freq: Status: Active Protocol: Document 02/12/20 11:15 DCW (Rec: 02/12/20 12:04 DCW [id number]) Balance Tests [place] Balance Test [place] Balance Test Score 55/56 [place] Impairment Rating 1 to 19% Impaired (Score 45-55 ) CTSIB CTSIB Position 1 30 seconds CTSIB Position 2 30 seconds CTSIB Position 3 30 seconds CTSIB Position 4 30 seconds CTSIB Position 5 30 seconds CTSIB Position 6 30 seconds PT-OP-E Functional Tests Start: 02/12/20 12:04 Freq: Status: Active Protocol: Document 02/12/20 11:15 DCW (Rec: 02/12/20 12:04 DCW [id number]) Functional Tests Functional Gait Assessment Score 27/30 Functional Gait Assessment Impairment 1 to <20% Impaired (Score 25- Rating 29) PT-OP-K Range of Motion Start: 02/08/20 07:17 Freq: Status: Active Protocol: Document 02/08/20 09:00 MB (Rec: 02/08/20 11:19 MB [id number]) Cervical Spine Range of Motion Cervical Spine Active Testing Position Sitting Comments Flexion and extension functional and no dizziness. Rotation right to 35 deg and left to 55 deg Cervical extension tightness with Ajith-Hallpike testing and pt presents with forward shoulders and so overhead presses/lifting may cause cervical strain/transient vertebral artery ischemia with position PT-OP-M Strength Start: 02/08/20 07:17 Freq: Status: Active Protocol: Document 02/08/20 09:00 MB (Rec: 02/08/20 11:19 MB [id number]) Shoulder Strength Shoulder Manual Muscle Testing Left Flexion 5 Normal Right Flexion 5 Normal Elbow/Forearm Strength Elbow and Forearm Manual Muscle Testing Left Extension (C7) 5 Normal Right Extension (C7) 5 Normal PT-OP-O Vestibular Start: 02/08/20 07:17 Freq: Status: Active Protocol: Document 02/08/20 09:00 MB (Rec: 02/08/20 11:19 MB [id number]) Vestibular Assessment Visual Testing Smooth Pursuits Horizontal Normal Smooth Pursuits Vertical Normal Saccades Horizontal Normal Gaze Evoked Nystagmus With Fixation Negative Thrust Head Positive Bilateral Convergence Test WNL Spontaneous Nystagmus Negative Positional Testing [place]-Hallpike Negative Left,Negative Right PT-OP-Q Treatments Start: 02/08/20 07:17 Freq: Status: Active Protocol: Document 02/23/20 09:48 DCW (Rec: 02/23/20 10:42 DCW [id number]) Gym Equipment Shuttle Balance 1 Details Red Comments EO/EC, VOR, Saccades, Horiz/ Vert X1 Neuro Re-Education Treatment Balance Activities 2 Details Tandem Gait Surface Blue Foam Comments Eyes Open, eyes closed. 1 Details Tandem gait /c Cone/ball transfers Comments Opposite head turns Other Activities Detailed ongoing neuromuscular and vestibular testing Comments 8 line degradation in DVA Self-Care/Home Management Treatment Education Other Education Explaination of vestibular system, treatment expectations , treatment rationale PT-OP-T Assessment and Plan Start: 02/08/20 07:17 Freq: Status: Active Protocol: Document 02/23/20 09:48 DCW (Rec: 02/23/20 10:42 DCW [id number]) Physical Therapy Assessment Impairments Impairments Balance,Posture,ROM,Soft Tissue Mobility,Transfers, Vestibular,Visual Motor Other Impairments Pt presents with scab on right nose and states that he has extensive skin cancer history and that he gets this worked on by doctor often Coordination with finger to nose and rapid supination and pronation B hands normal Slow toe tapping over opposite foot B Pen light not working to assess pupil dilation B head thrust positive for hypofunction, worse on the right Positive orthostatic hypotension this date with testing Goals Two Impairment DHI score reflects high perception of handicap Longterm Goal (LTG) Pt will present with an improved DHI score to reflect low perception of handicap by 04/09/2020. LTG Duration 8 weeks One Alteration Specialist Goal (LTG) Pt will perform WNLs on FGA to decrease fall risk and increase confidence with gait by 04/09/2020. LTG Duration 8 weeks 2 Longterm Goal (LTG) Pt will perform progressive HEP with I including VOR, postural, flexibility, shoulder, scapular and core strengthening and balance exercises to improve symptoms and balance by 04/09/2020. LTG Duration 8 weeks 1 Alteration Specialist Goal (LTG) Pt will gait train 1500 ft in 6 minutes to reflect improved symptomology with increasing gait distance by 04/09/2020. LTG Duration 8 weeks Assessment Summary Assessment DVA testing showed an 8 line degradation during horizontal head oscillation. Pt found addition of horizontal head turns on Shuttle balance challenging. Pt appreciated review of vestibular system/ rationale for treatment of hypofunction. Physical Therapy Plan Frequency and Duration Frequency of Treatment 2x/Week Duration of Treatment 8 weeks Plan of Care Start Date 02/08/20 Plan of Care End Date 04/09/20 Therapeutic Interventions Therapeutic Interventions Balance Training,Canalithic Repositioning,Coordination Training,Gait Training,Home Exercise Program,Joint Mobilizations,Manual Therapy, Neuromuscular Re-education, Patient/Caregiver Education, Self-Care/Home Management,Soft Tissue Mobilization,Taping, Therapeutic Activities, Therapeutic Exercises, Vestibular Rehabilitation Modalities Cold Pack/Ice Massage,Electric Stimulation,Hot Packs Next Visit Focus/Plan Next Note Type Treatment Note Next Visit Plan VOR DVA testing and exercises if appropriate
--- NOTE | 2020-02-28 09:40 | PT.OTN ---
Current Diagnoses Labyrinthine dysfunction, unspecified ear (02/28/20) Physical Therapy Treatment Note PT-OP-A Visit Information Start: 02/08/20 07:17 Freq: Status: Active Protocol: Document 02/28/20 09:02 MB (Rec: 02/28/20 09:40 MB [id number]) Out-Patient Physical Therapy Visit Information Visit Information Visit Type Treatment Note Visit Note Medicare Visit Start Time 09:02 Visit Stop Time 09:40 Total Visit Minutes 38 Visit Number 6 PT-OP-B Current Condition Start: 02/08/20 07:17 Freq: Status: Active Protocol: Document 02/08/20 09:00 MB (Rec: 02/08/20 09:21 MB [id number]) Current Condition History of Current Condition Onset Date 01/29/2020 Current Complaints Walking and quick movements of the head make dizziness worse History of Current Condition Pt bent over and was cutting toenails and then felt dizzy sitting up. He felt dizzy when waking up the next morning. Pt reports constant dizziness. Pt denies numbness and tingling, weakness, vision changes. He reports MORALES, recent start of overhead lifting, sinus and allergies, B12 deficiency, ear pressure. Pt denies neck pain. He describes symptoms as imbalance and light-headedness. He has been lifting overhead lately. Pt reports history of BPPV in 2016 or 2017. He has a history of vestibular dysfunction in 2018 and had PT. He describes his current symptoms as similar to 2018, just worse. He did see an ENT but does not recall findings. His hearing was normal both ears. Pt had 2 falls in 2018 and no falls this time. No history of stroke. His dad of stroke 2 months ago and he could not see his dad during COVID. Pt denies DM, HTN and HLD. Pt states that he drinks a lot of coffe everyday--5 cups of caffeinated coffee. He drinks 1-2 glasses of water a day. He drinks 4 beers/wine a week. Prior Treatments and Tests PT for vestibular rehabilitation, tandem standing, tracking letter with head turns, bending over and turning head right and left Treatment Goals Patient/Caregiver Goals To have better balance and no dizziness PT-OP-C Subjective Start: 02/08/20 07:17 Freq: Status: Active Protocol: Document 02/28/20 09:02 MB (Rec: 02/28/20 09:40 MB [id number]) OP-PT Subjective Patient Comments Patient Comments Pt states that he is doing the same. He did bend over in the chair to look for a popcorn kernel on the floor and felt that more severe dizziness. He does feel like he is going to lose his balance when he closes his eyes and turns in the shower. Pt went to a patch worker who put him on a heart monitor to check if he has a cardiac arrythmmia. PT-OP-D Balance Start: 02/08/20 07:17 Freq: Status: Active Protocol: Document 02/12/20 11:15 DCW (Rec: 02/12/20 12:04 DCW [id number]) Balance Tests [place] Balance Test [place] Balance Test Score 55/56 [place] Impairment Rating 1 to 19% Impaired (Score 45-55 ) CTSIB CTSIB Position 1 30 seconds CTSIB Position 2 30 seconds CTSIB Position 3 30 seconds CTSIB Position 4 30 seconds CTSIB Position 5 30 seconds CTSIB Position 6 30 seconds PT-OP-E Functional Tests Start: 02/12/20 12:04 Freq: Status: Active Protocol: Document 02/12/20 11:15 DCW (Rec: 02/12/20 12:04 DCW [id number]) Functional Tests Functional Gait Assessment Score 27/30 Functional Gait Assessment Impairment 1 to <20% Impaired (Score 25- Rating 29) PT-OP-K Range of Motion Start: 02/08/20 07:17 Freq: Status: Active Protocol: Document 02/08/20 09:00 MB (Rec: 02/08/20 11:19 MB [id number]) Cervical Spine Range of Motion Cervical Spine Active Testing Position Sitting Comments Flexion and extension functional and no dizziness. Rotation right to 35 deg and left to 55 deg Cervical extension tightness with Ajith-Hallpike testing and pt presents with forward shoulders and so overhead presses/lifting may cause cervical strain/transient vertebral artery ischemia with position PT-OP-M Strength Start: 02/08/20 07:17 Freq: Status: Active Protocol: Document 02/08/20 09:00 MB (Rec: 02/08/20 11:19 MB [id number]) Shoulder Strength Shoulder Manual Muscle Testing Left Flexion 5 Normal Right Flexion 5 Normal Elbow/Forearm Strength Elbow and Forearm Manual Muscle Testing Left Extension (C7) 5 Normal Right Extension (C7) 5 Normal PT-OP-O Vestibular Start: 02/08/20 07:17 Freq: Status: Active Protocol: Document 02/08/20 09:00 MB (Rec: 02/08/20 11:19 MB [id number]) Vestibular Assessment Visual Testing Smooth Pursuits Horizontal Normal Smooth Pursuits Vertical Normal Saccades Horizontal Normal Gaze Evoked Nystagmus With Fixation Negative Thrust Head Positive Bilateral Convergence Test WNL Spontaneous Nystagmus Negative Positional Testing [place]-Hallpike Negative Left,Negative Right PT-OP-Q Treatments Start: 02/08/20 07:17 Freq: Status: Active Protocol: Document 02/28/20 09:02 MB (Rec: 02/28/20 09:40 MB [id number]) Neuro Re-Education Treatment Vestibular Rehabilitation VOR Retraining Comments DVA eye chart exercise initiated today and provided for HEP. Pt does not have glasses and so standing 5' from eye chart. Looking at line 4 E for horizontal and vertical head turns, more provocation of sxs with vertical head turns. Self-Care/Home Management Treatment Education Other Education Handouts for VOR hypofunction, why see a PT for dizziness, balance system and PT and the VOR PT-OP-T Assessment and Plan Start: 02/08/20 07:17 Freq: Status: Active Protocol: Document 02/28/20 09:02 MB (Rec: 02/28/20 09:40 MB [id number]) Physical Therapy Assessment Impairments Impairments Balance,Posture,ROM,Soft Tissue Mobility,Transfers, Vestibular,Visual Motor Other Impairments Pt presents with scab on right nose and states that he has extensive skin cancer history and that he gets this worked on by doctor often Coordination with finger to nose and rapid supination and pronation B hands normal Slow toe tapping over opposite foot B Pen light not working to assess pupil dilation B head thrust positive for hypofunction, worse on the right Positive orthostatic hypotension this date with testing Goals Two Impairment DHI score reflects high perception of handicap [employer] Goal (LTG) Pt will present with an improved DHI score to reflect low perception of handicap by 04/09/2020. LTG Duration 8 weeks One [employer] Goal (LTG) Pt will perform WNLs on FGA to decrease fall risk and increase confidence with gait by 04/09/2020. LTG Duration 8 weeks 2 [employer] Goal (LTG) Pt will perform progressive HEP with I including VOR, postural, flexibility, shoulder, scapular and core strengthening and balance exercises to improve symptoms and balance by 04/09/2020. LTG Duration 8 weeks 1 [facility] Goal (LTG) Pt will gait train 1500 ft in 6 minutes to reflect improved symptomology with increasing gait distance by 04/09/2020. LTG Duration 8 weeks Assessment Summary Assessment Pt does not report feeling any better. Progressed DVA exericse today. Recommend trying Motion Sensitivity Quotient next treatment date to catch the dizziness with bending over and looking down compared to other positions. PT is still concerned about cervical r/o given his symptoms. 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 He requests to defer provocation of bending down in sitting today. Of note, pt does have delayed to little pupil restriction B with pen light in the dark. Physical Therapy Plan Frequency and Duration Frequency of Treatment 2x/Week Duration of Treatment 8 weeks Plan of Care Start Date 02/08/20 Plan of Care End Date 04/09/20 Therapeutic Interventions Therapeutic Interventions Balance Training,Canalithic Repositioning,Coordination Training,Gait Training,Home Exercise Program,Joint Mobilizations,Manual Therapy, Neuromuscular Re-education, Patient/Caregiver Education, Self-Care/Home Management,Soft Tissue Mobilization,Taping, Therapeutic Activities, Therapeutic Exercises, Vestibular Rehabilitation Modalities Cold Pack/Ice Massage,Electric Stimulation,Hot Packs Other Referrals/Consults Referrals/Consults Recommended Possible ENT consult to assess VOR hypofunction and for diagnosis unilateral or B; consider assessing posterior circulation and neck Next Visit Focus/Plan Next Note Type Treatment Note Next Visit Plan Motion Sensitiviy Quotient and review DVA exercise with eye chart. Review previous vestibular PT's exercises. Monitor reports of heart monitor findings--arrythmmia
--- NOTE | 2020-03-01 11:15 | PT.OTN ---
Current Diagnoses Labyrinthine dysfunction, unspecified ear (03/01/20) Physical Therapy Treatment Note PT-OP-A Visit Information Start: 02/08/20 07:17 Freq: Status: Active Protocol: Document 03/01/20 10:36 DCW (Rec: 03/01/20 11:14 DCW [id number]) Out-Patient Physical Therapy Visit Information Visit Information Visit Type Treatment Note Visit Note 6 min late Visit Start Time 10:36 Visit Stop Time 11:15 Total Visit Minutes 39 Visit Number 7 Evaluation Information Evaluation Date 02/08/20 PT-OP-B Current Condition Start: 02/08/20 07:17 Freq: Status: Active Protocol: Document 02/08/20 09:00 MB (Rec: 02/08/20 09:21 MB [id number]) Current Condition History of Current Condition Onset Date 01/29/2020 Current Complaints Walking and quick movements of the head make dizziness worse History of Current Condition Pt bent over and was cutting toenails and then felt dizzy sitting up. He felt dizzy when waking up the next morning. Pt reports constant dizziness. Pt denies numbness and tingling, weakness, vision changes. He reports MORALES, recent start of overhead lifting, sinus and allergies, B12 deficiency, ear pressure. Pt denies neck pain. He describes symptoms as imbalance and light-headedness. He has been lifting overhead lately. Pt reports history of BPPV in 2016 or 2017. He has a history of vestibular dysfunction in 2018 and had PT. He describes his current symptoms as similar to 2018, just worse. He did see an ENT but does not recall findings. His hearing was normal both ears. Pt had 2 falls in 2018 and no falls this time. No history of stroke. His dad of stroke 2 months ago and he could not see his dad during COVID. Pt denies DM, HTN and HLD. Pt states that he drinks a lot of coffe everyday--5 cups of caffeinated coffee. He drinks 1-2 glasses of water a day. He drinks 4 beers/wine a week. Prior Treatments and Tests PT for vestibular rehabilitation, tandem standing, tracking letter with head turns, bending over and turning head right and left Treatment Goals Patient/Caregiver Goals To have better balance and no dizziness PT-OP-C Subjective Start: 02/08/20 07:17 Freq: Status: Active Protocol: Document 03/01/20 10:36 DCW (Rec: 03/01/20 11:14 DCW [id number]) OP-PT Subjective Patient Comments Patient Comments Pt notes his PCP has sent in orders for an MRI PT-OP-D Balance Start: 02/08/20 07:17 Freq: Status: Active Protocol: Document 02/12/20 11:15 DCW (Rec: 02/12/20 12:04 DCW [id number]) Balance Tests [place] Balance Test [place] Balance Test Score 55/56 [place] Impairment Rating 1 to 19% Impaired (Score 45-55 ) CTSIB CTSIB Position 1 30 seconds CTSIB Position 2 30 seconds CTSIB Position 3 30 seconds CTSIB Position 4 30 seconds CTSIB Position 5 30 seconds CTSIB Position 6 30 seconds PT-OP-E Functional Tests Start: 02/12/20 12:04 Freq: Status: Active Protocol: Document 02/12/20 11:15 DCW (Rec: 02/12/20 12:04 DCW [id number]) Functional Tests Functional Gait Assessment Score 27/30 Functional Gait Assessment Impairment 1 to <20% Impaired (Score 25- Rating 29) PT-OP-K Range of Motion Start: 02/08/20 07:17 Freq: Status: Active Protocol: Document 02/08/20 09:00 MB (Rec: 02/08/20 11:19 MB [id number]) Cervical Spine Range of Motion Cervical Spine Active Testing Position Sitting Comments Flexion and extension functional and no dizziness. Rotation right to 35 deg and left to 55 deg Cervical extension tightness with Ajith-Hallpike testing and pt presents with forward shoulders and so overhead presses/lifting may cause cervical strain/transient vertebral artery ischemia with position PT-OP-M Strength Start: 02/08/20 07:17 Freq: Status: Active Protocol: Document 02/08/20 09:00 MB (Rec: 02/08/20 11:19 MB [id number]) Shoulder Strength Shoulder Manual Muscle Testing Left Flexion 5 Normal Right Flexion 5 Normal Elbow/Forearm Strength Elbow and Forearm Manual Muscle Testing Left Extension (C7) 5 Normal Right Extension (C7) 5 Normal PT-OP-O Vestibular Start: 02/08/20 07:17 Freq: Status: Active Protocol: Document 02/08/20 09:00 MB (Rec: 02/08/20 11:19 MB [id number]) Vestibular Assessment Visual Testing Smooth Pursuits Horizontal Normal Smooth Pursuits Vertical Normal Saccades Horizontal Normal Gaze Evoked Nystagmus With Fixation Negative Thrust Head Positive Bilateral Convergence Test WNL Spontaneous Nystagmus Negative Positional Testing Ajith-Hallpike Negative Left,Negative Right PT-OP-Q Treatments Start: 02/08/20 07:17 Freq: Status: Active Protocol: Document 03/01/20 10:30 DCW (Rec: 03/04/20 12:08 DCW [id number]) Neuro Re-Education Treatment Balance Activities 2 Details Tandem Amb /c head turns Comments Horizontal, Vertical Other Activities Detailed ongoing neuromuscular and vestibular testing Details Motion Sensitivity Testing Comments Scored 43.75% - Severe dysfunction 7 Details [place] with Head Turns 6 Details Eyes closed ambulation PT-OP-T Assessment and Plan Start: 02/08/20 07:17 Freq: Status: Active Protocol: Document 03/01/20 10:30 DCW (Rec: 03/04/20 12:08 DCW [id number]) Physical Therapy Assessment Impairments Impairments Balance,Posture,ROM,Soft Tissue Mobility,Transfers, Vestibular,Visual Motor Other Impairments Pt presents with scab on right nose and states that he has extensive skin cancer history and that he gets this worked on by doctor often Coordination with finger to nose and rapid supination and pronation B hands normal Slow toe tapping over opposite foot B Pen light not working to assess pupil dilation B head thrust positive for hypofunction, worse on the right Positive orthostatic hypotension this date with testing Goals Two Impairment DHI score reflects high perception of handicap [employer] Goal (LTG) Pt will present with an improved DHI score to reflect low perception of handicap by 04/09/2020. LTG Duration 8 weeks One [employer] Goal (LTG) Pt will perform WNLs on FGA to decrease fall risk and increase confidence with gait by 04/09/2020. LTG Duration 8 weeks 2 [facility] Goal (LTG) Pt will perform progressive HEP with I including VOR, postural, flexibility, shoulder, scapular and core strengthening and balance exercises to improve symptoms and balance by 04/09/2020. LTG Duration 8 weeks 1 [facility] Goal (LTG) Pt will gait train 1500 ft in 6 minutes to reflect improved symptomology with increasing gait distance by 04/09/2020. LTG Duration 8 weeks Assessment Summary Assessment Pt underwent Motion Sensitivity testing today, scored a 43.75% disability, which indicates a severe impairment. Pt again demonstrating downbeating nystagmus in all down positions, in sidelying, supine, or with his head down to his knee in sitting. Pt does have an upcoming MRI, which will hopefully help rule in or out various causes of downbeating nystagmus. Physical Therapy Plan Frequency and Duration Frequency of Treatment 2x/Week Duration of Treatment 8 weeks Plan of Care Start Date 02/08/20 Plan of Care End Date 04/09/20 Therapeutic Interventions Therapeutic Interventions Balance Training,Canalithic Repositioning,Coordination Training,Gait Training,Home Exercise Program,Joint Mobilizations,Manual Therapy, Neuromuscular Re-education, Patient/Caregiver Education, Self-Care/Home Management,Soft Tissue Mobilization,Taping, Therapeutic Activities, Therapeutic Exercises, Vestibular Rehabilitation Modalities Cold Pack/Ice Massage,Electric Stimulation,Hot Packs Other Referrals/Consults Referrals/Consults Recommended Possible ENT consult to assess VOR hypofunction and for diagnosis unilateral or B; consider assessing posterior circulation and neck Next Visit Focus/Plan Next Note Type Treatment Note Next Visit Plan Motion Sensitiviy Quotient and review DVA exercise with eye chart. Review previous vestibular PT's exercises. Monitor reports of heart monitor findings--arrythmmia
--- NOTE | 2020-03-08 10:32 | PT.OTN ---
Current Diagnoses Labyrinthine dysfunction, unspecified ear (03/08/20) Physical Therapy Treatment Note PT-OP-A Visit Information Start: 02/08/20 07:17 Freq: Status: Active Protocol: Document 03/08/20 09:45 DCW (Rec: 03/08/20 10:32 DCW [id number]) Out-Patient Physical Therapy Visit Information Visit Information Visit Type Treatment Note Visit Start Time 09:45 Visit Stop Time 10:30 Total Visit Minutes 45 Visit Number 8 Evaluation Information Evaluation Date 02/08/20 PT-OP-B Current Condition Start: 02/08/20 07:17 Freq: Status: Active Protocol: Document 02/08/20 09:00 MB (Rec: 02/08/20 09:21 MB [id number]) Current Condition History of Current Condition Onset Date 01/29/2020 Current Complaints Walking and quick movements of the head make dizziness worse History of Current Condition Pt bent over and was cutting toenails and then felt dizzy sitting up. He felt dizzy when waking up the next morning. Pt reports constant dizziness. Pt denies numbness and tingling, weakness, vision changes. He reports MORALES, recent start of overhead lifting, sinus and allergies, B12 deficiency, ear pressure. Pt denies neck pain. He describes symptoms as imbalance and light-headedness. He has been lifting overhead lately. Pt reports history of BPPV in 2016 or 2017. He has a history of vestibular dysfunction in 2018 and had PT. He describes his current symptoms as similar to 2018, just worse. He did see an ENT but does not recall findings. His hearing was normal both ears. Pt had 2 falls in 2018 and no falls this time. No history of stroke. His dad of stroke 2 months ago and he could not see his dad during COVID. Pt denies DM, HTN and HLD. Pt states that he drinks a lot of coffe everyday--5 cups of caffeinated coffee. He drinks 1-2 glasses of water a day. He drinks 4 beers/wine a week. Prior Treatments and Tests PT for vestibular rehabilitation, tandem standing, tracking letter with head turns, bending over and turning head right and left Treatment Goals Patient/Caregiver Goals To have better balance and no dizziness PT-OP-C Subjective Start: 02/08/20 07:17 Freq: Status: Active Protocol: Document 03/08/20 09:45 DCW (Rec: 03/08/20 10:32 DCW [id number]) OP-PT Subjective Patient Comments Patient Comments Pt reports no change in symptoms. Not any worse, maybe slightly better, but it depends on the day. Pt does admit he fell off the bed of his truck onto the ground out camping, but didn't hurt myself. Reports it was due to a wet shoe on metal, and had nothing to do with his dizziness. PT-OP-D Balance Start: 02/08/20 07:17 Freq: Status: Active Protocol: Document 02/12/20 11:15 DCW (Rec: 02/12/20 12:04 DCW [id number]) Balance Tests [place] Balance Test [place] Balance Test Score 55/56 [place] Impairment Rating 1 to 19% Impaired (Score 45-55 ) CTSIB CTSIB Position 1 30 seconds CTSIB Position 2 30 seconds CTSIB Position 3 30 seconds CTSIB Position 4 30 seconds CTSIB Position 5 30 seconds CTSIB Position 6 30 seconds PT-OP-E Functional Tests Start: 02/12/20 12:04 Freq: Status: Active Protocol: Document 02/12/20 11:15 DCW (Rec: 02/12/20 12:04 DCW [id number]) Functional Tests Functional Gait Assessment Score 27/30 Functional Gait Assessment Impairment 1 to <20% Impaired (Score 25- Rating 29) PT-OP-K Range of Motion Start: 02/08/20 07:17 Freq: Status: Active Protocol: Document 02/08/20 09:00 MB (Rec: 02/08/20 11:19 MB [id number]) Cervical Spine Range of Motion Cervical Spine Active Testing Position Sitting Comments Flexion and extension functional and no dizziness. Rotation right to 35 deg and left to 55 deg Cervical extension tightness with [place]-Hallpike testing and pt presents with forward shoulders and so overhead presses/lifting may cause cervical strain/transient vertebral artery ischemia with position PT-OP-M Strength Start: 02/08/20 07:17 Freq: Status: Active Protocol: Document 02/08/20 09:00 MB (Rec: 02/08/20 11:19 MB [id number]) Shoulder Strength Shoulder Manual Muscle Testing Left Flexion 5 Normal Right Flexion 5 Normal Elbow/Forearm Strength Elbow and Forearm Manual Muscle Testing Left Extension (C7) 5 Normal Right Extension (C7) 5 Normal PT-OP-O Vestibular Start: 02/08/20 07:17 Freq: Status: Active Protocol: Document 02/08/20 09:00 MB (Rec: 02/08/20 11:19 MB [id number]) Vestibular Assessment Visual Testing Smooth Pursuits Horizontal Normal Smooth Pursuits Vertical Normal Saccades Horizontal Normal Gaze Evoked Nystagmus With Fixation Negative Thrust Head Positive Bilateral Convergence Test WNL Spontaneous Nystagmus Negative Positional Testing Ajith-Hallpike Negative Left,Negative Right PT-OP-Q Treatments Start: 02/08/20 07:17 Freq: Status: Active Protocol: Document 03/08/20 09:45 DCW (Rec: 03/08/20 10:32 DCW [id number]) Neuro Re-Education Treatment Balance Activities 2 Details Tandem Amb /c head turns Comments Horizontal, Vertical Vestibular Rehabilitation X2 Viewing Details Target, head moving in opposite directions Position Seated X1 Viewing Details Still target, moving head Position Seated Corrective Saccades Details Eyes, then head to targets Position Seated VOR Retraining Details VOR diagonals Position Seated Comments Head/eyes follow thumb Other Activities 7 Details [place] with Head Turns 6 Details Eyes closed ambulation 5 Details Positional changes Comments Habituation Sitting<->Sidelying Sitting<->Sxwg-nt-ckld Sitting<->Supine PT-OP-T Assessment and Plan Start: 02/08/20 07:17 Freq: Status: Active Protocol: Document 03/08/20 09:45 DCW (Rec: 03/08/20 10:32 DCW [id number]) Physical Therapy Assessment Impairments Impairments Balance,Posture,ROM,Soft Tissue Mobility,Transfers, Vestibular,Visual Motor Other Impairments Pt presents with scab on right nose and states that he has extensive skin cancer history and that he gets this worked on by doctor often Coordination with finger to nose and rapid supination and pronation B hands normal Slow toe tapping over opposite foot B Pen light not working to assess pupil dilation B head thrust positive for hypofunction, worse on the right Positive orthostatic hypotension this date with testing Goals Two Impairment DHI score reflects high perception of handicap Care Home Goal (LTG) Pt will present with an improved DHI score to reflect low perception of handicap by 04/09/2020. LTG Duration 8 weeks One Care Home Goal (LTG) Pt will perform WNLs on FGA to decrease fall risk and increase confidence with gait by 04/09/2020. LTG Duration 8 weeks 2 Care Home Goal (LTG) Pt will perform progressive HEP with I including VOR, postural, flexibility, shoulder, scapular and core strengthening and balance exercises to improve symptoms and balance by 04/09/2020. LTG Duration 8 weeks 1 Insurance Verification Specialist Goal (LTG) Pt will gait train 1500 ft in 6 minutes to reflect improved symptomology with increasing gait distance by 04/09/2020. LTG Duration 8 weeks Assessment Summary Assessment Pt doing much better today, no complaints of symptoms or nystagmus with any positional changes. Pt did struggle with X2 viewing exercises, displaying a slight pause in oculomotor function during horizontal movement of the target/eyes to the left and when moving up. Physical Therapy Plan Frequency and Duration Frequency of Treatment 2x/Week Duration of Treatment 8 weeks Plan of Care Start Date 02/08/20 Plan of Care End Date 04/09/20 Therapeutic Interventions Therapeutic Interventions Balance Training,Canalithic Repositioning,Coordination Training,Gait Training,Home Exercise Program,Joint Mobilizations,Manual Therapy, Neuromuscular Re-education, Patient/Caregiver Education, Self-Care/Home Management,Soft Tissue Mobilization,Taping, Therapeutic Activities, Therapeutic Exercises, Vestibular Rehabilitation Modalities Cold Pack/Ice Massage,Electric Stimulation,Hot Packs Other Referrals/Consults Referrals/Consults Recommended Possible ENT consult to assess VOR hypofunction and for diagnosis unilateral or B; consider assessing posterior circulation and neck Next Visit Focus/Plan Next Note Type Treatment Note Next Visit Plan Review previous vestibular PT' s exercises. Monitor reports of heart monitor findings--arrythmmia
--- NOTE | 2020-03-15 10:33 | PT.OTN ---
Current Diagnoses Labyrinthine dysfunction, unspecified ear (03/15/20) Physical Therapy Treatment Note PT-OP-A Visit Information Start: 02/08/20 07:17 Freq: Status: Active Protocol: Document 03/15/20 09:50 DCW (Rec: 03/15/20 10:32 DCW [id number]) Out-Patient Physical Therapy Visit Information Visit Information Visit Type Treatment Note Visit Start Time 09:50 Visit Stop Time 10:30 Total Visit Minutes 40 Visit Number 9 Evaluation Information Evaluation Date 02/08/20 PT-OP-B Current Condition Start: 02/08/20 07:17 Freq: Status: Active Protocol: Document 02/08/20 09:00 MB (Rec: 02/08/20 09:21 MB [id number]) Current Condition History of Current Condition Onset Date 01/29/2020 Current Complaints Walking and quick movements of the head make dizziness worse History of Current Condition Pt bent over and was cutting toenails and then felt dizzy sitting up. He felt dizzy when waking up the next morning. Pt reports constant dizziness. Pt denies numbness and tingling, weakness, vision changes. He reports MORALES, recent start of overhead lifting, sinus and allergies, B12 deficiency, ear pressure. Pt denies neck pain. He describes symptoms as imbalance and light-headedness. He has been lifting overhead lately. Pt reports history of BPPV in 2016 or 2017. He has a history of vestibular dysfunction in 2018 and had PT. He describes his current symptoms as similar to 2018, just worse. He did see an ENT but does not recall findings. His hearing was normal both ears. Pt had 2 falls in 2018 and no falls this time. No history of stroke. His dad of stroke 2 months ago and he could not see his dad during COVID. Pt denies DM, HTN and HLD. Pt states that he drinks a lot of coffe everyday--5 cups of caffeinated coffee. He drinks 1-2 glasses of water a day. He drinks 4 beers/wine a week. Prior Treatments and Tests PT for vestibular rehabilitation, tandem standing, tracking letter with head turns, bending over and turning head right and left Treatment Goals Patient/Caregiver Goals To have better balance and no dizziness PT-OP-C Subjective Start: 02/08/20 07:17 Freq: Status: Active Protocol: Document 03/15/20 09:50 DCW (Rec: 03/15/20 10:32 DCW [id number]) OP-PT Subjective Patient Comments Patient Comments Pt reports his MRI report was negative, which is certainly a positive. Admits he has not been very good with his HEP this past week, but I haven't had any setbacks either. PT-OP-D Balance Start: 02/08/20 07:17 Freq: Status: Active Protocol: Document 02/12/20 11:15 DCW (Rec: 02/12/20 12:04 DCW [id number]) Balance Tests [place] Balance Test [place] Balance Test Score 55/56 [place] Impairment Rating 1 to 19% Impaired (Score 45-55 ) CTSIB CTSIB Position 1 30 seconds CTSIB Position 2 30 seconds CTSIB Position 3 30 seconds CTSIB Position 4 30 seconds CTSIB Position 5 30 seconds CTSIB Position 6 30 seconds PT-OP-E Functional Tests Start: 02/12/20 12:04 Freq: Status: Active Protocol: Document 02/12/20 11:15 DCW (Rec: 02/12/20 12:04 DCW [id number]) Functional Tests Functional Gait Assessment Score 27/30 Functional Gait Assessment Impairment 1 to <20% Impaired (Score 25- Rating 29) PT-OP-K Range of Motion Start: 02/08/20 07:17 Freq: Status: Active Protocol: Document 02/08/20 09:00 MB (Rec: 02/08/20 11:19 MB [id number]) Cervical Spine Range of Motion Cervical Spine Active Testing Position Sitting Comments Flexion and extension functional and no dizziness. Rotation right to 35 deg and left to 55 deg Cervical extension tightness with [place]-Hallpike testing and pt presents with forward shoulders and so overhead presses/lifting may cause cervical strain/transient vertebral artery ischemia with position PT-OP-M Strength Start: 02/08/20 07:17 Freq: Status: Active Protocol: Document 02/08/20 09:00 MB (Rec: 02/08/20 11:19 MB [id number]) Shoulder Strength Shoulder Manual Muscle Testing Left Flexion 5 Normal Right Flexion 5 Normal Elbow/Forearm Strength Elbow and Forearm Manual Muscle Testing Left Extension (C7) 5 Normal Right Extension (C7) 5 Normal PT-OP-O Vestibular Start: 02/08/20 07:17 Freq: Status: Active Protocol: Document 02/08/20 09:00 MB (Rec: 02/08/20 11:19 MB [id number]) Vestibular Assessment Visual Testing Smooth Pursuits Horizontal Normal Smooth Pursuits Vertical Normal Saccades Horizontal Normal Gaze Evoked Nystagmus With Fixation Negative Thrust Head Positive Bilateral Convergence Test WNL Spontaneous Nystagmus Negative Positional Testing [place]-Hallpike Negative Left,Negative Right PT-OP-Q Treatments Start: 02/08/20 07:17 Freq: Status: Active Protocol: Document 03/15/20 09:50 DCW (Rec: 03/15/20 10:32 DCW [id number]) Neuro Re-Education Treatment Balance Activities 2 Details Tandem Amb /c head turns Comments Horizontal, Vertical Vestibular Rehabilitation X2 Viewing Details Target, head moving in opposite directions Position Seated X1 Viewing Details Still target, moving head Position Seated Corrective Saccades Details Eyes, then head to targets Position Seated VOR Retraining Details VOR horizontal, vertical, diagonals Position Seated Comments Head/eyes follow thumb Other Activities 6 Details Eyes closed ambulation 1 Details Ball/Cone transfer in tandem with crossover PT-OP-T Assessment and Plan Start: 02/08/20 07:17 Freq: Status: Active Protocol: Document 03/15/20 09:50 DCW (Rec: 03/15/20 10:32 DCW [id number]) Physical Therapy Assessment Impairments Impairments Balance,Posture,ROM,Soft Tissue Mobility,Transfers, Vestibular,Visual Motor Other Impairments Pt presents with scab on right nose and states that he has extensive skin cancer history and that he gets this worked on by doctor often Coordination with finger to nose and rapid supination and pronation B hands normal Slow toe tapping over opposite foot B Pen light not working to assess pupil dilation B head thrust positive for hypofunction, worse on the right Positive orthostatic hypotension this date with testing Goals Two Impairment DHI score reflects high perception of handicap Residential Goal (LTG) Pt will present with an improved DHI score to reflect low perception of handicap by 04/09/2020. LTG Duration 8 weeks One Residential Goal (LTG) Pt will perform WNLs on FGA to decrease fall risk and increase confidence with gait by 04/09/2020. LTG Duration 8 weeks 2 Technical Implementation Lead Goal (LTG) Pt will perform progressive HEP with I including VOR, postural, flexibility, shoulder, scapular and core strengthening and balance exercises to improve symptoms and balance by 04/09/2020. LTG Duration 8 weeks 1 Residential Goal (LTG) Pt will gait train 1500 ft in 6 minutes to reflect improved symptomology with increasing gait distance by 04/09/2020. LTG Duration 8 weeks Assessment Summary Assessment Pt appears to be much less symptomatic recently, no complaints of recurring vertigo. Due to an unclear diagnosis, it is difficult to determine if he is making real progress, or if his symptoms just cycle between more and less severe. Pt should benefit from continued therapy to ensure he is continuing to improve. Physical Therapy Plan Frequency and Duration Frequency of Treatment 2x/Week Duration of Treatment 8 weeks Plan of Care Start Date 02/08/20 Plan of Care End Date 04/09/20 Therapeutic Interventions Therapeutic Interventions Balance Training,Canalithic Repositioning,Coordination Training,Gait Training,Home Exercise Program,Joint Mobilizations,Manual Therapy, Neuromuscular Re-education, Patient/Caregiver Education, Self-Care/Home Management,Soft Tissue Mobilization,Taping, Therapeutic Activities, Therapeutic Exercises, Vestibular Rehabilitation Modalities Cold Pack/Ice Massage,Electric Stimulation,Hot Packs Other Referrals/Consults Referrals/Consults Recommended Possible ENT consult to assess VOR hypofunction and for diagnosis unilateral or B; consider assessing posterior circulation and neck Next Visit Focus/Plan Next Note Type Treatment Note Next Visit Plan Continued vestibular/VOR exercises
--- NOTE | 2020-03-20 15:39 | PT.OTN ---
Current Diagnoses Labyrinthine dysfunction, unspecified ear (03/20/20) Physical Therapy Treatment Note PT-OP-A Visit Information Start: 02/08/20 07:17 Freq: Status: Active Protocol: Document 03/20/20 09:45 MB (Rec: 03/20/20 10:22 MB [id number]) Out-Patient Physical Therapy Visit Information Visit Information Visit Type Progress Note Visit Start Time 09:45 Visit Stop Time 10:30 Total Visit Minutes 45 Visit Number 10 PT-OP-B Current Condition Start: 02/08/20 07:17 Freq: Status: Active Protocol: Document 02/08/20 09:00 MB (Rec: 02/08/20 09:21 MB [id number]) Current Condition History of Current Condition Onset Date 01/29/2020 Current Complaints Walking and quick movements of the head make dizziness worse History of Current Condition Pt bent over and was cutting toenails and then felt dizzy sitting up. He felt dizzy when waking up the next morning. Pt reports constant dizziness. Pt denies numbness and tingling, weakness, vision changes. He reports MORALES, recent start of overhead lifting, sinus and allergies, B12 deficiency, ear pressure. Pt denies neck pain. He describes symptoms as imbalance and light-headedness. He has been lifting overhead lately. Pt reports history of BPPV in 2016 or 2017. He has a history of vestibular dysfunction in 2018 and had PT. He describes his current symptoms as similar to 2018, just worse. He did see an ENT but does not recall findings. His hearing was normal both ears. Pt had 2 falls in 2018 and no falls this time. No history of stroke. His dad of stroke 2 months ago and he could not see his dad during COVID. Pt denies DM, HTN and HLD. Pt states that he drinks a lot of coffe everyday--5 cups of caffeinated coffee. He drinks 1-2 glasses of water a day. He drinks 4 beers/wine a week. Prior Treatments and Tests PT for vestibular rehabilitation, tandem standing, tracking letter with head turns, bending over and turning head right and left Treatment Goals Patient/Caregiver Goals To have better balance and no dizziness PT-OP-C Subjective Start: 02/08/20 07:17 Freq: Status: Active Protocol: Document 03/20/20 09:45 MB (Rec: 03/20/20 10:22 MB [id number]) OP-PT Subjective Patient Comments Patient Comments Pt states that his symptoms are a little worse today and yesterday. He rates dizziness and wooziness as 6/10. Lying down is the worse. Today, he feels that if he turns around quickly with walking, he is off balance. Pt states that he is finishing up wearing his halter monitor per dance costume designer. He has it on today. He has some episodes of feeling really tired when mowing and he looked at his HR when he has symptoms one time and his HR was in the 200s BPM. Pt reports symptoms do get worse in the shower. His hydration is reasonable. He is still drinking a lot of coffee, 4-5 cups a day caffeinated. Morning cups are 12 or more oz. PT-OP-D Balance Start: 02/08/20 07:17 Freq: Status: Active Protocol: Document 02/12/20 11:15 DCW (Rec: 02/12/20 12:04 DCW [id number]) Balance Tests [place] Balance Test [place] Balance Test Score 55/56 [place] Impairment Rating 1 to 19% Impaired (Score 45-55 ) CTSIB CTSIB Position 1 30 seconds CTSIB Position 2 30 seconds CTSIB Position 3 30 seconds CTSIB Position 4 30 seconds CTSIB Position 5 30 seconds CTSIB Position 6 30 seconds PT-OP-E Functional Tests Start: 02/12/20 12:04 Freq: Status: Active Protocol: Document 02/12/20 11:15 DCW (Rec: 02/12/20 12:04 DCW [id number]) Functional Tests Functional Gait Assessment Score 27/30 Functional Gait Assessment Impairment 1 to <20% Impaired (Score 25- Rating 29) PT-OP-K Range of Motion Start: 02/08/20 07:17 Freq: Status: Active Protocol: Document 02/08/20 09:00 MB (Rec: 02/08/20 11:19 MB [id number]) Cervical Spine Range of Motion Cervical Spine Active Testing Position Sitting Comments Flexion and extension functional and no dizziness. Rotation right to 35 deg and left to 55 deg Cervical extension tightness with [place]-Hallpike testing and pt presents with forward shoulders and so overhead presses/lifting may cause cervical strain/transient vertebral artery ischemia with position PT-OP-M Strength Start: 02/08/20 07:17 Freq: Status: Active Protocol: Document 02/08/20 09:00 MB (Rec: 02/08/20 11:19 MB [id number]) Shoulder Strength Shoulder Manual Muscle Testing Left Flexion 5 Normal Right Flexion 5 Normal Elbow/Forearm Strength Elbow and Forearm Manual Muscle Testing Left Extension (C7) 5 Normal Right Extension (C7) 5 Normal PT-OP-O Vestibular Start: 02/08/20 07:17 Freq: Status: Active Protocol: Document 02/08/20 09:00 MB (Rec: 02/08/20 11:19 MB [id number]) Vestibular Assessment Visual Testing Smooth Pursuits Horizontal Normal Smooth Pursuits Vertical Normal Saccades Horizontal Normal Gaze Evoked Nystagmus With Fixation Negative Thrust Head Positive Bilateral Convergence Test WNL Spontaneous Nystagmus Negative Positional Testing Ajith-Hallpike Negative Left,Negative Right PT-OP-Q Treatments Start: 02/08/20 07:17 Freq: Status: Active Protocol: Document 03/20/20 09:45 MB (Rec: 03/20/20 15:26 MB [id number]) Neuro Re-Education Treatment Balance Activities Discussed stop current neuromuscular/vestibular exercises at home Comments Pt to stop these currently d/t he thinks they might be worsening his symptoms 6MWT to observe balance and reaction with head turns, conversation and symptoms with increased gait speed Comments Pt gait trains 1727 feet and denies symptoms with gait FGA Comments Score 28/30 and pt reports dizziness with right head turn . Backwards walking is slighty slow 360 deg turn B Comments 3 sec and pt reports increased dizziness Self-Care/Home Management Treatment Education Other Education Consider getting BP cuff to check BP at home during different times of day and during different activities, consider taking quality assurance monitor final into hot shower since he has dizziness in the shower /dizziness with heat, d/c HEP currently d/t increasing symptoms, benefits of ENT referral, reason for not performing modified-Caryn this PT course because he has not had torsional transient nystagmus with repeated [place]- Hallpike positioning PT-OP-T Assessment and Plan Start: 02/08/20 07:17 Freq: Status: Active Protocol: Document 03/20/20 09:45 MB (Rec: 03/20/20 10:22 MB [id number]) Physical Therapy Assessment Impairments Impairments Balance,Posture,ROM,Soft Tissue Mobility,Transfers, Vestibular,Visual Motor Other Impairments Pt presents with scab on right nose and states that he has extensive skin cancer history and that he gets this worked on by doctor often Coordination with finger to nose and rapid supination and pronation B hands normal Slow toe tapping over opposite foot B Pen light not working to assess pupil dilation B head thrust positive for hypofunction, worse on the right Positive orthostatic hypotension this date with testing Goals Two Impairment DHI score reflects high perception of handicap [facility] Goal (LTG) Pt will present with an improved DHI score to reflect low perception of handicap by 05/15/2020. 03/20/2020: Pt presents with DHI score 60, reflecting ongoing high perception of handicap. LTG Duration 8 weeks One [facility] Goal (LTG) Pt will perform WNLs on FGA to decrease fall risk and increase confidence with gait by 05/15/2020. 03/20/2020: FGA score is 28/30, WNLs LTG Duration 8 weeks 2 Wealth Management Director Goal (LTG) Pt will perform progressive HEP with I including VOR, postural, flexibility, shoulder, scapular and core strengthening and balance exercises to improve symptoms and balance by 05/15/2020. 03/20/2020: Pt is occ performing exercises depending on dizziness and busyness. He is trying to determine if exercises make him worse or not. LTG Duration 8 weeks 1 [facility] Goal (LTG) Pt will gait train 1500 ft in 6 minutes to reflect improved symptomology with increasing gait distance by 04/09/2020. 03/20/2020: Gait distance in 6 minutes is 1727 ft, goal met LTG Duration 8 weeks Assessment Summary Assessment Pt has progressed towards gait and balance goals since starting PT. His vestibular and balance exercises may be worsening his sxs, he thinks, and so ed pt to stop them at this time. He con't to present with high perception of handicap per DHI scoring. PT ed pt to check BP at home, consider getting automatic cuff. Pt con't with intermittent symptoms up to . Ed pt to try taking quality assurance monitor final with him into shower d/t increased dizziness with hot shower. Even though all BPPV testing has been negative and pt con't to report that his current symptoms are nothing like the positional vertigo he had in the past, he asks about trying modified Caryn maneuver . At this point, PT does not feel that this will cause any detriment to the pt and so may try this in future treatments , though it will be difficult to determine a canal to treat if he con't to be negative with testing. Will initiate at least one treatment where PT will check BP as pt performs many activities such as gait and balance activities to determine if this is a problem . 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 Current VOR PT exercises are not helping pt. Recommend ENT consult. Pt's presentation of downbeat nystagmus with lying down does not follow a peripheral nystagmus presentation. He could have positional provoked downbeat nystagmus that are more central, cervical and/or cervical neurovascular in nature. MRI/MRA was negative. Previous ENT findings of vestibulospinal reflex problem has not been fixed by vestibulospinal exercises in the past or currently. His symptoms con't to get quite high up to 6/10, are not helped by vestibular exercises and his nystagmus is not consistent with BPPV nystagmus . Overall, his clinical presentation is challenging. He does have a history of multiple skin CA and prostate CA and his father has a history of stroke. Unsure if there is another underlying medical concern contributing to findings. He does report his HR increased to the 200s in the past when mowing and he is wearing a quality assurance monitor final and PT found him to have dropping BP with position changes in previous treatments . There may be a cardiac contribution to dizziness symptoms. Physical Therapy Plan Frequency and Duration Frequency of Treatment 2x/Week Duration of Treatment 8 weeks Plan of Care Start Date 03/20/20 Plan of Care End Date 05/15/20 Therapeutic Interventions Therapeutic Interventions Balance Training,Canalithic Repositioning,Coordination Training,Gait Training,Home Exercise Program,Joint Mobilizations,Manual Therapy, Neuromuscular Re-education, Patient/Caregiver Education, Self-Care/Home Management,Soft Tissue Mobilization,Taping, Therapeutic Activities, Therapeutic Exercises, Vestibular Rehabilitation Modalities Cold Pack/Ice Massage,Electric Stimulation,Hot Packs Other Referrals/Consults Referrals/Consults Recommended Possible ENT consult to assess VOR hypofunction and for diagnosis unilateral or B; consider assessing posterior circulation and neck Next Visit Focus/Plan Next Note Type Treatment Note Next Visit Plan Continued vestibular/VOR exercises
--- NOTE | 2020-03-20 15:43 | PT.OTN ---
Current Diagnoses Labyrinthine dysfunction, unspecified ear (03/20/20) Physical Therapy Treatment Note PT-OP-A Visit Information Start: 02/08/20 07:17 Freq: Status: Active Protocol: Document 03/20/20 09:45 MB (Rec: 03/20/20 10:22 MB [id number]) Out-Patient Physical Therapy Visit Information Visit Information Visit Type Progress Note Visit Start Time 09:45 Visit Stop Time 10:30 Total Visit Minutes 45 Visit Number 10 PT-OP-B Current Condition Start: 02/08/20 07:17 Freq: Status: Active Protocol: Document 02/08/20 09:00 MB (Rec: 02/08/20 09:21 MB [id number]) Current Condition History of Current Condition Onset Date 01/29/2020 Current Complaints Walking and quick movements of the head make dizziness worse History of Current Condition Pt bent over and was cutting toenails and then felt dizzy sitting up. He felt dizzy when waking up the next morning. Pt reports constant dizziness. Pt denies numbness and tingling, weakness, vision changes. He reports MORALES, recent start of overhead lifting, sinus and allergies, B12 deficiency, ear pressure. Pt denies neck pain. He describes symptoms as imbalance and light-headedness. He has been lifting overhead lately. Pt reports history of BPPV in 2016 or 2017. He has a history of vestibular dysfunction in 2018 and had PT. He describes his current symptoms as similar to 2018, just worse. He did see an ENT but does not recall findings. His hearing was normal both ears. Pt had 2 falls in 2018 and no falls this time. No history of stroke. His dad of stroke 2 months ago and he could not see his dad during COVID. Pt denies DM, HTN and HLD. Pt states that he drinks a lot of coffe everyday--5 cups of caffeinated coffee. He drinks 1-2 glasses of water a day. He drinks 4 beers/wine a week. Prior Treatments and Tests PT for vestibular rehabilitation, tandem standing, tracking letter with head turns, bending over and turning head right and left Treatment Goals Patient/Caregiver Goals To have better balance and no dizziness PT-OP-C Subjective Start: 02/08/20 07:17 Freq: Status: Active Protocol: Document 03/20/20 09:45 MB (Rec: 03/20/20 10:22 MB [id number]) OP-PT Subjective Patient Comments Patient Comments Pt states that his symptoms are a little worse today and yesterday. He rates dizziness and wooziness as 6/10. Lying down is the worse. Today, he feels that if he turns around quickly with walking, he is off balance. Pt states that he is finishing up wearing his halter monitor per grain drier. He has it on today. He has some episodes of feeling really tired when mowing and he looked at his HR when he has symptoms one time and his HR was in the 200s BPM. Pt reports symptoms do get worse in the shower. His hydration is reasonable. He is still drinking a lot of coffee, 4-5 cups a day caffeinated. Morning cups are 12 or more oz. PT-OP-D Balance Start: 02/08/20 07:17 Freq: Status: Active Protocol: Document 02/12/20 11:15 DCW (Rec: 02/12/20 12:04 DCW [id number]) Balance Tests [place] Balance Test [place] Balance Test Score 55/56 [place] Impairment Rating 1 to 19% Impaired (Score 45-55 ) CTSIB CTSIB Position 1 30 seconds CTSIB Position 2 30 seconds CTSIB Position 3 30 seconds CTSIB Position 4 30 seconds CTSIB Position 5 30 seconds CTSIB Position 6 30 seconds PT-OP-E Functional Tests Start: 02/12/20 12:04 Freq: Status: Active Protocol: Document 02/12/20 11:15 DCW (Rec: 02/12/20 12:04 DCW [id number]) Functional Tests Functional Gait Assessment Score 27/30 Functional Gait Assessment Impairment 1 to <20% Impaired (Score 25- Rating 29) PT-OP-K Range of Motion Start: 02/08/20 07:17 Freq: Status: Active Protocol: Document 02/08/20 09:00 MB (Rec: 02/08/20 11:19 MB [id number]) Cervical Spine Range of Motion Cervical Spine Active Testing Position Sitting Comments Flexion and extension functional and no dizziness. Rotation right to 35 deg and left to 55 deg Cervical extension tightness with [place]-Hallpike testing and pt presents with forward shoulders and so overhead presses/lifting may cause cervical strain/transient vertebral artery ischemia with position PT-OP-M Strength Start: 02/08/20 07:17 Freq: Status: Active Protocol: Document 02/08/20 09:00 MB (Rec: 02/08/20 11:19 MB [id number]) Shoulder Strength Shoulder Manual Muscle Testing Left Flexion 5 Normal Right Flexion 5 Normal Elbow/Forearm Strength Elbow and Forearm Manual Muscle Testing Left Extension (C7) 5 Normal Right Extension (C7) 5 Normal PT-OP-O Vestibular Start: 02/08/20 07:17 Freq: Status: Active Protocol: Document 02/08/20 09:00 MB (Rec: 02/08/20 11:19 MB [id number]) Vestibular Assessment Visual Testing Smooth Pursuits Horizontal Normal Smooth Pursuits Vertical Normal Saccades Horizontal Normal Gaze Evoked Nystagmus With Fixation Negative Thrust Head Positive Bilateral Convergence Test WNL Spontaneous Nystagmus Negative Positional Testing Ajith-Hallpike Negative Left,Negative Right PT-OP-Q Treatments Start: 02/08/20 07:17 Freq: Status: Active Protocol: Document 03/20/20 09:45 MB (Rec: 03/20/20 15:26 MB [id number]) Neuro Re-Education Treatment Balance Activities Discussed stop current neuromuscular/vestibular exercises at home Comments Pt to stop these currently d/t he thinks they might be worsening his symptoms 6MWT to observe balance and reaction with head turns, conversation and symptoms with increased gait speed Comments Pt gait trains 1727 feet and denies symptoms with gait FGA Comments Score 28/30 and pt reports dizziness with right head turn . Backwards walking is slighty slow 360 deg turn B Comments 3 sec and pt reports increased dizziness Self-Care/Home Management Treatment Education Other Education Consider getting BP cuff to check BP at home during different times of day and during different activities, consider taking juvenile detention officer into hot shower since he has dizziness in the shower /dizziness with heat, d/c HEP currently d/t increasing symptoms, benefits of ENT referral, reason for not performing modified-Caryn this PT course because he has not had torsional transient nystagmus with repeated [place]- Hallpike positioning PT-OP-T Assessment and Plan Start: 02/08/20 07:17 Freq: Status: Active Protocol: Document 03/20/20 09:45 MB (Rec: 03/20/20 10:22 MB [id number]) Physical Therapy Assessment Impairments Impairments Balance,Posture,ROM,Soft Tissue Mobility,Transfers, Vestibular,Visual Motor Other Impairments Pt presents with scab on right nose and states that he has extensive skin cancer history and that he gets this worked on by doctor often Coordination with finger to nose and rapid supination and pronation B hands normal Slow toe tapping over opposite foot B Pen light not working to assess pupil dilation B head thrust positive for hypofunction, worse on the right Positive orthostatic hypotension this date with testing Goals Two Impairment DHI score reflects high perception of handicap Long-Term Goal (LTG) Pt will present with an improved DHI score to reflect low perception of handicap by 05/15/2020. 03/20/2020: Pt presents with DHI score 60, reflecting ongoing high perception of handicap. LTG Duration 8 weeks One Long-Term Goal (LTG) Pt will perform WNLs on FGA to decrease fall risk and increase confidence with gait by 05/15/2020. 03/20/2020: FGA score is 28/30, WNLs LTG Duration 8 weeks 2 Marine Animal Trainer Goal (LTG) Pt will perform progressive HEP with I including VOR, postural, flexibility, shoulder, scapular and core strengthening and balance exercises to improve symptoms and balance by 05/15/2020. 03/20/2020: Pt is occ performing exercises depending on dizziness and busyness. He is trying to determine if exercises make him worse or not. LTG Duration 8 weeks 1 Long-Term Goal (LTG) Pt will gait train 1500 ft in 6 minutes to reflect improved symptomology with increasing gait distance by 04/09/2020. 03/20/2020: Gait distance in 6 minutes is 1727 ft, goal met LTG Duration 8 weeks Assessment Summary Assessment Pt has progressed towards gait and balance goals since starting PT. His vestibular and balance exercises may be worsening his sxs, he thinks, and so ed pt to stop them at this time. He con't to present with high perception of handicap per DHI scoring. PT ed pt to check BP at home, consider getting automatic cuff. Pt con't with intermittent symptoms up to . Ed pt to try taking juvenile detention officer with him into shower d/t increased dizziness with hot shower. Even though all BPPV testing has been negative and pt con't to report that his current symptoms are nothing like the positional vertigo he had in the past, he asks about trying modified Caryn maneuver . At this point, PT does not feel that this will cause any detriment to the pt and so may try this in future treatments , though it will be difficult to determine a canal to treat if he con't to be negative with testing. Will initiate at least one treatment where PT will check BP as pt performs many activities such as gait and balance activities to determine if this is a problem . 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 Current VOR PT exercises are not helping pt. Recommend ENT consult. Pt's presentation of downbeat nystagmus with lying down does not follow a peripheral nystagmus presentation. He could have positional provoked downbeat nystagmus that are more central, cervical and/or cervical neurovascular in nature. MRI/MRA was negative. Previous ENT findings of vestibulospinal reflex problem has not been fixed by vestibulospinal exercises in the past or currently. His symptoms con't to get quite high up to 6/10, are not helped by vestibular exercises and his nystagmus is not consistent with BPPV nystagmus . Overall, his clinical presentation is challenging. He does have a history of multiple skin CA and prostate CA and his father has a history of stroke. Unsure if there is another underlying medical concern contributing to findings. He does report his HR increased to the 200s in the past when mowing and he is wearing a juvenile detention officer and PT found him to have dropping BP with position changes in previous treatments . There may be a cardiac contribution to dizziness symptoms. Con't PT trial to assess BP with activities and progressed exercises if appropriate. Physical Therapy Plan Frequency and Duration Frequency of Treatment 2x/Week Duration of Treatment 8 weeks Plan of Care Start Date 03/20/20 Plan of Care End Date 05/15/20 Therapeutic Interventions Therapeutic Interventions Balance Training,Canalithic Repositioning,Coordination Training,Gait Training,Home Exercise Program,Joint Mobilizations,Manual Therapy, Neuromuscular Re-education, Patient/Caregiver Education, Self-Care/Home Management,Soft Tissue Mobilization,Taping, Therapeutic Activities, Therapeutic Exercises, Vestibular Rehabilitation Modalities Cold Pack/Ice Massage,Electric Stimulation,Hot Packs Other Referrals/Consults Referrals/Consults Recommended Possible ENT consult to assess VOR hypofunction and for diagnosis unilateral or B; consider assessing posterior circulation and neck Next Visit Focus/Plan Next Note Type Treatment Note Next Visit Plan Consider modified-Caryn if appropriate and/or checking BP with many activities
--- NOTE | 2020-03-22 10:36 | PT.OTN ---
Current Diagnoses Labyrinthine dysfunction, unspecified ear (03/22/20) Physical Therapy Treatment Note PT-OP-A Visit Information Start: 02/08/20 07:17 Freq: Status: Active Protocol: Document 03/22/20 09:46 MB (Rec: 03/22/20 10:07 MB [id number]) Out-Patient Physical Therapy Visit Information Visit Information Visit Type Treatment Note Visit Start Time 09:46 Visit Stop Time 10:30 Total Visit Minutes 44 Visit Number 11 PT-OP-B Current Condition Start: 02/08/20 07:17 Freq: Status: Active Protocol: Document 02/08/20 09:00 MB (Rec: 02/08/20 09:21 MB [id number]) Current Condition History of Current Condition Onset Date 01/29/2020 Current Complaints Walking and quick movements of the head make dizziness worse History of Current Condition Pt bent over and was cutting toenails and then felt dizzy sitting up. He felt dizzy when waking up the next morning. Pt reports constant dizziness. Pt denies numbness and tingling, weakness, vision changes. He reports MORALES, recent start of overhead lifting, sinus and allergies, B12 deficiency, ear pressure. Pt denies neck pain. He describes symptoms as imbalance and light-headedness. He has been lifting overhead lately. Pt reports history of BPPV in 2016 or 2017. He has a history of vestibular dysfunction in 2018 and had PT. He describes his current symptoms as similar to 2018, just worse. He did see an ENT but does not recall findings. His hearing was normal both ears. Pt had 2 falls in 2018 and no falls this time. No history of stroke. His dad of stroke 2 months ago and he could not see his dad during COVID. Pt denies DM, HTN and HLD. Pt states that he drinks a lot of coffe everyday--5 cups of caffeinated coffee. He drinks 1-2 glasses of water a day. He drinks 4 beers/wine a week. Prior Treatments and Tests PT for vestibular rehabilitation, tandem standing, tracking letter with head turns, bending over and turning head right and left Treatment Goals Patient/Caregiver Goals To have better balance and no dizziness PT-OP-C Subjective Start: 02/08/20 07:17 Freq: Status: Active Protocol: Document 03/22/20 09:46 MB (Rec: 03/22/20 10:07 MB [id number]) OP-PT Subjective Patient Comments Patient Comments Pt had mole surgery behind his right ear and left chest yesterday. He has felt a little better and has not been performing vestibular exercises. He will take a hot shower today with monitoring and evaluation advisor on. PT-OP-D Balance Start: 02/08/20 07:17 Freq: Status: Active Protocol: Document 02/12/20 11:15 DCW (Rec: 02/12/20 12:04 DCW [id number]) Balance Tests [place] Balance Test [place] Balance Test Score 55/56 [place] Impairment Rating 1 to 19% Impaired (Score 45-55 ) CTSIB CTSIB Position 1 30 seconds CTSIB Position 2 30 seconds CTSIB Position 3 30 seconds CTSIB Position 4 30 seconds CTSIB Position 5 30 seconds CTSIB Position 6 30 seconds PT-OP-E Functional Tests Start: 02/12/20 12:04 Freq: Status: Active Protocol: Document 02/12/20 11:15 DCW (Rec: 02/12/20 12:04 DCW [id number]) Functional Tests Functional Gait Assessment Score 27/30 Functional Gait Assessment Impairment 1 to <20% Impaired (Score 25- Rating 29) PT-OP-K Range of Motion Start: 02/08/20 07:17 Freq: Status: Active Protocol: Document 02/08/20 09:00 MB (Rec: 02/08/20 11:19 MB [id number]) Cervical Spine Range of Motion Cervical Spine Active Testing Position Sitting Comments Flexion and extension functional and no dizziness. Rotation right to 35 deg and left to 55 deg Cervical extension tightness with Ajith-Hallpike testing and pt presents with forward shoulders and so overhead presses/lifting may cause cervical strain/transient vertebral artery ischemia with position PT-OP-M Strength Start: 02/08/20 07:17 Freq: Status: Active Protocol: Document 02/08/20 09:00 MB (Rec: 02/08/20 11:19 MB [id number]) Shoulder Strength Shoulder Manual Muscle Testing Left Flexion 5 Normal Right Flexion 5 Normal Elbow/Forearm Strength Elbow and Forearm Manual Muscle Testing Left Extension (C7) 5 Normal Right Extension (C7) 5 Normal PT-OP-O Vestibular Start: 02/08/20 07:17 Freq: Status: Active Protocol: Document 02/08/20 09:00 MB (Rec: 02/08/20 11:19 MB [id number]) Vestibular Assessment Visual Testing Smooth Pursuits Horizontal Normal Smooth Pursuits Vertical Normal Saccades Horizontal Normal Gaze Evoked Nystagmus With Fixation Negative Thrust Head Positive Bilateral Convergence Test WNL Spontaneous Nystagmus Negative Positional Testing Ajith-Hallpike Negative Left,Negative Right PT-OP-Q Treatments Start: 02/08/20 07:17 Freq: Status: Active Protocol: Document 03/22/20 09:46 MB (Rec: 03/22/20 10:35 MB [id number]) Therapeutic Activity Therapeutic Activity 1 Comments See assessment today for treatment comments PT-OP-T Assessment and Plan Start: 02/08/20 07:17 Freq: Status: Active Protocol: Document 03/22/20 09:46 MB (Rec: 03/22/20 10:07 MB [id number]) Physical Therapy Assessment Rehab Potential Rehabilitation Potential Fair Evaluation Complexity Number of Personal Factors/Comorbidities 1-2 Number of Body Systems Impaired 1-2 Clinical Presentation at Evaluation Evolving Impairments Impairments Balance,Posture,ROM,Soft Tissue Mobility,Transfers, Vestibular,Visual Motor Other Impairments Pt presents with scab on right nose and states that he has extensive skin cancer history and that he gets this worked on by doctor often Coordination with finger to nose and rapid supination and pronation B hands normal Slow toe tapping over opposite foot B Pen light not working to assess pupil dilation B head thrust positive for hypofunction, worse on the right Positive orthostatic hypotension this date with testing Goals Two Impairment DHI score reflects high perception of handicap Correction Goal (LTG) Pt will present with an improved DHI score to reflect low perception of handicap by 05/15/2020. 03/20/2020: Pt presents with DHI score 60, reflecting ongoing high perception of handicap. LTG Duration 8 weeks One Courtroom Reporter Goal (LTG) Pt will perform WNLs on FGA to decrease fall risk and increase confidence with gait by 05/15/2020. 03/20/2020: FGA score is 28/30, WNLs LTG Duration 8 weeks 2 Correction Goal (LTG) Pt will perform progressive HEP with I including VOR, postural, flexibility, shoulder, scapular and core strengthening and balance exercises to improve symptoms and balance by 05/15/2020. 03/20/2020: Pt is occ performing exercises depending on dizziness and busyness. He is trying to determine if exercises make him worse or not. LTG Duration 8 weeks 1 Correction Goal (LTG) Pt will gait train 1500 ft in 6 minutes to reflect improved symptomology with increasing gait distance by 04/09/2020. 03/20/2020: Gait distance in 6 minutes is 1727 ft, goal met LTG Duration 8 weeks Assessment Summary Assessment *Treatment section for vestibular not functioning in this EMR note and so will document here. Roll test negative B for nystagmus and dizziness, mild dizziness going down and up to and from Right Ajith-Hallpike. Treated to have this checked off on treatment course. Therpeutic activity section not working in EMR for note and so documenting here. Orthostatic assessment with BP and HR in LUE: supine 140/76, 54; standing 121/72, 62; standing 1' 116/66, 60; standing 2' 123 /72, 61. Strong and consistent radial pulse on manual palpation. Sitting readings with bending over to check syncopal/vagus symptoms: bending at hips with head in neutral: 147/65, 54; back to sitting 130/69, 55. Bending over with head down 134/87, 56 ; back to sitting 130/72, 52. Pt is still not drinking a lot of non-caffeinated fluid and is drinking coffee throughout the day. Ed pt about importance of non-caffeinated fluid, orthostasis. Consider gait training with BP checking next treatment date. Physical Therapy Plan Frequency and Duration Frequency of Treatment 2x/Week Duration of Treatment 8 weeks Plan of Care Start Date 03/20/20 Plan of Care End Date 05/15/20 Therapeutic Interventions Therapeutic Interventions Balance Training,Canalithic Repositioning,Coordination Training,Gait Training,Home Exercise Program,Joint Mobilizations,Manual Therapy, Neuromuscular Re-education, Patient/Caregiver Education, Self-Care/Home Management,Soft Tissue Mobilization,Taping, Therapeutic Activities, Therapeutic Exercises, Vestibular Rehabilitation Modalities Cold Pack/Ice Massage,Electric Stimulation,Hot Packs Other Referrals/Consults Referrals/Consults Recommended Possible ENT consult to assess VOR hypofunction and for diagnosis unilateral or B; consider assessing posterior circulation and neck Next Visit Focus/Plan Next Note Type Treatment Note Next Visit Plan Check BP with multiple gait acitivites.
--- NOTE | 2020-04-11 08:37 | PT.OTN ---
Current Diagnoses Labyrinthine dysfunction, unspecified ear (04/11/20) Physical Therapy Treatment Note PT-OP-A Visit Information Start: 02/08/20 07:17 Freq: Status: Active Protocol: Document 04/11/20 07:30 MB (Rec: 04/11/20 08:07 MB [id number]) Out-Patient Physical Therapy Visit Information Visit Information Visit Type Treatment Note Visit Start Time 07:30 Visit Stop Time 08:23 Total Visit Minutes 53 Visit Number 12 PT-OP-B Current Condition Start: 02/08/20 07:17 Freq: Status: Active Protocol: Document 02/08/20 09:00 MB (Rec: 02/08/20 09:21 MB [id number]) Current Condition History of Current Condition Onset Date 01/29/2020 Current Complaints Walking and quick movements of the head make dizziness worse History of Current Condition Pt bent over and was cutting toenails and then felt dizzy sitting up. He felt dizzy when waking up the next morning. Pt reports constant dizziness. Pt denies numbness and tingling, weakness, vision changes. He reports MORALES, recent start of overhead lifting, sinus and allergies, B12 deficiency, ear pressure. Pt denies neck pain. He describes symptoms as imbalance and light-headedness. He has been lifting overhead lately. Pt reports history of BPPV in 2016 or 2017. He has a history of vestibular dysfunction in 2018 and had PT. He describes his current symptoms as similar to 2018, just worse. He did see an ENT but does not recall findings. His hearing was normal both ears. Pt had 2 falls in 2018 and no falls this time. No history of stroke. His dad of stroke 2 months ago and he could not see his dad during COVID. Pt denies DM, HTN and HLD. Pt states that he drinks a lot of coffe everyday--5 cups of caffeinated coffee. He drinks 1-2 glasses of water a day. He drinks 4 beers/wine a week. Prior Treatments and Tests PT for vestibular rehabilitation, tandem standing, tracking letter with head turns, bending over and turning head right and left Treatment Goals Patient/Caregiver Goals To have better balance and no dizziness PT-OP-C Subjective Start: 02/08/20 07:17 Freq: Status: Active Protocol: Document 04/11/20 07:30 MB (Rec: 04/11/20 08:07 MB [id number]) OP-PT Subjective Patient Comments Patient Comments Pt had mild dizziness in the shower when he turned. He went to the ED 04/06/2020 d/t PVCs. He noticed his watch noted high HR and he felt fluttering in his chest. He was discharged to follow-up with electrical tester who did not change anything. He will con't with Cardizam. Pt states that he was walking down the stairs and hurt his right calf . He has a history of plantar fasciitis and had a surgical incision to the plantar fascia in the past. He will follow- up with his doctor about this d/t reports of right calf swelling. Pt will be heading out of town for [place] 04/30/2020 and will return in July and will have his ENT visit then. He and PT agree that will d/c current PT course at this time. Patient Questionnaires Dizziness Handicap Inventory DHI Score 60 DHI Functional Impairment 60 to 79% Impaired (Score 60- 79) PT-OP-D Balance Start: 02/08/20 07:17 Freq: Status: Active Protocol: Document 02/12/20 11:15 DCW (Rec: 02/12/20 12:04 DCW [id number]) Balance Tests [place] Balance Test [place] Balance Test Score 55/56 [place] Impairment Rating 1 to 19% Impaired (Score 45-55 ) CTSIB CTSIB Position 1 30 seconds CTSIB Position 2 30 seconds CTSIB Position 3 30 seconds CTSIB Position 4 30 seconds CTSIB Position 5 30 seconds CTSIB Position 6 30 seconds PT-OP-E Functional Tests Start: 02/12/20 12:04 Freq: Status: Active Protocol: Document 02/12/20 11:15 DCW (Rec: 02/12/20 12:04 DCW [id number]) Functional Tests Functional Gait Assessment Score 27/30 Functional Gait Assessment Impairment 1 to <20% Impaired (Score 25- Rating 29) PT-OP-K Range of Motion Start: 02/08/20 07:17 Freq: Status: Active Protocol: Document 02/08/20 09:00 MB (Rec: 02/08/20 11:19 MB [id number]) Cervical Spine Range of Motion Cervical Spine Active Testing Position Sitting Comments Flexion and extension functional and no dizziness. Rotation right to 35 deg and left to 55 deg Cervical extension tightness with Ajith-Hallpike testing and pt presents with forward shoulders and so overhead presses/lifting may cause cervical strain/transient vertebral artery ischemia with position PT-OP-M Strength Start: 02/08/20 07:17 Freq: Status: Active Protocol: Document 02/08/20 09:00 MB (Rec: 02/08/20 11:19 MB [id number]) Shoulder Strength Shoulder Manual Muscle Testing Left Flexion 5 Normal Right Flexion 5 Normal Elbow/Forearm Strength Elbow and Forearm Manual Muscle Testing Left Extension (C7) 5 Normal Right Extension (C7) 5 Normal PT-OP-O Vestibular Start: 02/08/20 07:17 Freq: Status: Active Protocol: Document 02/08/20 09:00 MB (Rec: 02/08/20 11:19 MB [id number]) Vestibular Assessment Visual Testing Smooth Pursuits Horizontal Normal Smooth Pursuits Vertical Normal Saccades Horizontal Normal Gaze Evoked Nystagmus With Fixation Negative Thrust Head Positive Bilateral Convergence Test WNL Spontaneous Nystagmus Negative Positional Testing Ajith-Hallpike Negative Left,Negative Right PT-OP-Q Treatments Start: 02/08/20 07:17 Freq: Status: Active Protocol: Document 04/11/20 07:30 MB (Rec: 04/11/20 08:07 MB [id number]) Therapeutic Exercises Standing Exercises 3 Side bilateral Reps/Minutes 1 rep each, 30 sec hold Comments Soleus and gastroc stretches Neuro Re-Education Treatment Balance Activities 6MWT to observe balance and reaction with head turns, conversation and symptoms with increased gait speed Comments Deferred this date d/t reports of right calf pain and pt states that 6 minutes of walking will bother him FGA Comments with most difficulty with backward walking and this could be related to right calf injury/discomfort. His gait speed is also less because of this, per pt report Vestibular Rehabilitation VOR Retraining Comments Eye chart with eyes on lowest E and pt performing horizontal and vertical head turns up to 1' Made harder with [place] Ed pt in progression with semi Tandem Other Activities 1 Comments Tandem standing for balance: progressed to EC with right foot behind up to 20 sec before LOB and needing to open eyes to prevent fall, has not yet caught himself before LOB with opening. Left leg behind up to 15 sec before needing to open eyes to prevent LOB Self-Care/Home Management Treatment Education Caregiver Education Ed pt in higher risk for DVT d /t history of [place] Benefits of [place] sock for prolonged passive stretch as well as compression hose ( thigh high) for longer car rides and flights Use of cervical support while sleeping to support neck and decrease SCM activation Con't decreasing non- caffeinated fluid intake PT-OP-T Assessment and Plan Start: 02/08/20 07:17 Freq: Status: Active Protocol: Document 04/11/20 07:30 MB (Rec: 04/11/20 08:07 MB [id number]) Physical Therapy Assessment Rehab Potential Rehabilitation Potential Fair Evaluation Complexity Number of Personal Factors/Comorbidities 1-2 Number of Body Systems Impaired 1-2 Clinical Presentation at Evaluation Evolving Impairments Impairments Balance,Posture,ROM,Soft Tissue Mobility,Transfers, Vestibular,Visual Motor Other Impairments Pt presents with scab on right nose and states that he has extensive skin cancer history and that he gets this worked on by doctor often Coordination with finger to nose and rapid supination and pronation B hands normal Slow toe tapping over opposite foot B Pen light not working to assess pupil dilation B head thrust positive for hypofunction, worse on the right Positive orthostatic hypotension this date with testing Goals Two Impairment DHI score reflects high perception of handicap Superintendent House Goal (LTG) Pt will present with an improved DHI score to reflect low perception of handicap by 05/15/2020. 04/11/2020: DHI score is the same, reflecting high perception of handicap- LTG Duration 8 weeks One Superintendent House Goal (LTG) Pt will perform WNLs on FGA to decrease fall risk and increase confidence with gait by 05/15/2020. 04/11/2020: FGA score is 29/30, WNLs LTG Duration 8 weeks 2 [facility] House Goal (LTG) Pt will perform progressive HEP with I including VOR, postural, flexibility, shoulder, scapular and core strengthening and balance exercises to improve symptoms and balance by 05/15/2020. 04/11/2020: Revised HEP to only include VOR eye chart exercise with progressive balance challenges, Tandem progressive with EC and calf stretches LTG Duration 8 weeks 1 Correction Goal (LTG) Pt will gait train 1500 ft in 6 minutes to reflect improved symptomology with increasing gait distance by 04/09/2020. 04/11/2020: Pt requests to defer d/t right calf pain LTG Duration 8 weeks Assessment Summary Assessment Pt symptoms have not changed during PT course. His balance is slightly better but gait distance testing is deferred today d/t right calf pain after stepping down the step. He reports swelling (not observed today by PT but he does have distal calf tenderness to palpation) and will follow-up with doctor about this. Once again, during this PT course, he presented with negative BPPV testing, positive downbeat nystagmus with lying supine, positive orthostatics, findings of PVCs and changing heart rate and reports of dizziness with more intense exercise and outdoor work, and VOR hypofunction. Pt to d/c with tandem exercise progressing to eyes closed and VOR exercise with progressive narrow JACQUES. He follows-up with ENT in July and is leaving for [place] in April. Will d/c PT. Physical Therapy Plan Discharge Physical Therapy Discharge Reasons Plateau in Progress
== END 2020-04-11 09:36 | disposition home or self-care (01) ==
LOC: PHYS 07:30
PROVIDERS: PCP Internal Medicine; Referring Provider Internal Medicine; Visit Provider Internal Medicine
DX: H83.2X9 Labyrinthine dysfunction, unspecified ear (principal)
CPT/HCPCS: 95992; 97110; 97112; 97162; 97530; 97535

== ENCOUNTER → 2021-03-05 06:54 | Outpatient (CLI) | payer MEDICARE, BC, SELFPAY ==
[2021-03-05 07:52] LABS: Alanine Aminotransferase 19 IU/L (<50); Albumin 4.1 g/dL (3.5-5.0); Albumin Globulin Ratio 1.6 (1.0-2.8); Alkaline Phosphatase 64 U/L (38-126); Aspartate Aminotransferase 22 IU/L (17-59); BUN Creatinine Ratio 21.3 (6-22); Bilirubin Total 0.5 mg/dL (0.2-1.3); Blood Urea Nitrogen 19 mg/dL (9-20); Carbon Dioxide 26 mmol/L (22-32); Chloride 109 mmol/L (98-107); Cholesterol 125 mg/dL (140-199); Estimated Glomerular Filt Rate > 60.0 mL/min (>60); Globulin 2.5 g/dL (1.7-4.1); Glucose 102 mg/dL (80-110); HDL Cholesterol 57 mg/dL (40-60); HEMOLYSIS < 15 (0-50); LDL Cholesterol Calculated 50 mg/dL (<100); Potassium 4.4 mmol/L (3.4-5.1); Sodium 140 mmol/L (137-145); Total Protein 6.6 g/dL (6.3-8.2); Triglycerides 90 mg/dL (35-150)
[2021-03-05 08:23] LABS: Prostate Specific Antigen 3.73 ng/mL (0.10-4.00)
== END ==
PROVIDERS: PCP Internal Medicine; Referring Provider Internal Medicine; Visit Provider Internal Medicine
DX: C61 Malignant neoplasm of prostate (principal); I10 Essential (primary) hypertension; Z13.220 Encounter for screening for lipoid disorders
CPT/HCPCS: 36415; 80053; 80061; 84153

== ENCOUNTER → 2023-02-04 08:18 | Outpatient (CLI) | payer MEDICARE, BC, SELFPAY ==
[2023-02-04 09:38] LABS: Alanine Aminotransferase 22 IU/L (<50); Albumin 4.3 g/dL (3.5-5.0); Albumin Globulin Ratio 1.9 (1.0-2.8); Alkaline Phosphatase 63 U/L (38-126); Aspartate Aminotransferase 25 IU/L (17-59); BUN Creatinine Ratio 28.9 (6-22); Bilirubin Total 0.6 mg/dL (0.2-1.3); Blood Urea Nitrogen 22 mg/dL (9-20); Calcium 8.7 mg/dL (8.4-10.2); Carbon Dioxide 26 mmol/L (22-32); Chloride 108 mmol/L (98-107); Cholesterol 106 mg/dL (140-199); Estimated Glomerular Filt Rate > 60 mL/min (>60); Globulin 2.3 g/dL (1.7-4.1); Glucose 99 mg/dL (80-110); HDL Cholesterol 51 mg/dL (40-60); HEMOLYSIS 31 (0-50); LDL Cholesterol Calculated 42 mg/dL (<100); Potassium 4.4 mmol/L (3.4-5.1); Sodium 140 mmol/L (137-145); Total Protein 6.6 g/dL (6.3-8.2); Triglycerides 63 mg/dL (35-150)
== END ==
PROVIDERS: PCP Internal Medicine; Referring Provider Internal Medicine; Visit Provider Internal Medicine
DX: I10 Essential (primary) hypertension (principal); E78.5 Hyperlipidemia, unspecified
CPT/HCPCS: 36415; 80053; 80061

== ENCOUNTER → 2023-03-01 14:25 | Outpatient (CLI) | payer MEDICARE, BC, SELFPAY ==
[2023-03-01 16:38] LABS: Prostate Specific Antigen < 0.064 ng/mL (0.10-4.00)
== END ==
PROVIDERS: PCP Internal Medicine; Referring Provider Nurse Practitioner Family; Visit Provider Nurse Practitioner Family
DX: C61 Malignant neoplasm of prostate (principal)
CPT/HCPCS: 36415; 84153

== ENCOUNTER 2023-03-17 12:00 | Outpatient (RCR) | payer MEDICARE, BC, SELFPAY ==
--- NOTE | 2022-12-28 12:00 | PT.OPPOC ---
Physical, Occupational & Speech Therapy At [facility] Current Diagnoses Stress incontinence (female) (male) (12/28/22) Visit Care Team Role Provider Type Sushant Byole MD Primary Care Provider Physician Specialty: Internal Medicine Address: [address] [place] [address], [address], [place], [address] Email: [email or web address] JOHN Mejia Attending Provider Non-Staff Referring Provider Specialty: Nursing Address: [address] [place] [address], [id number] Email: Plan Of Care PT-OP-T Assessment and Plan Start: 12/26/22 21:45 Freq: Status: Active Protocol: Document 12/28/22 10:00 AMB (Rec: 12/29/22 10:00 AMB [id number]) Physical Therapy Assessment Rehab Potential Rehabilitation Potential Good Evaluation Complexity Number of Personal Factors/Comorbidities 0 Number of Body Systems Impaired 1-2 Clinical Presentation at Evaluation Stable Impairments Impairments Functional Activities,Strength Goals Two Impairment Pelvic floor strength Short Term Goal (STG) Sushant will engage his pelvic floor for 10 seconds in standing without compensations . STG Duration 5 weeks Jail Goal (LTG) Sushant will move from sit to stand while engaging his pelvic floor. LTG Duration 10 weeks One Impairment Incontinence Short Term Goal (STG) Sushant will lift 10 pounds from the floor to waist height without leaking. STG Duration 5 weeks [employer] Goal (LTG) Sushant will cough and sneeze without leaking urine. LTG Duration 10 weeks Assessment Summary Assessment Sushant had a radical prostatectomy September and since that time has been leaking. He has already been working on a HEP, but hasn't been doing as much pelvic floor strengthening as I would recommend. His muscular activity as assessed with sEMG was fairly good, but he does understand that his pelvic floor strength needs to be better now that it was in the past to continue to improve his continence. He will benefit from pelvic floor physical therapy to improve his pelvic floor strength and continence. Physical Therapy Plan Frequency and Duration Frequency of Treatment 1x/Week Duration of treatment (weeks) 10 Plan of Care Start Date 12/28/22 Plan of Care End Date 03/08/23 Therapeutic Interventions Therapeutic Interventions Home Exercise Program,Manual Therapy,Neuromuscular Re- education,Self-Care/Home Management,Therapeutic Activities,Therapeutic Exercises Modalities Biofeedback,Electric Stimulation Next Visit Focus/Plan Next Note Type Treatment Note Next Visit Plan progress HEP into standing, review sEMG Plan of Care Dates Plan of Care Start Date 12/28/22 Plan of Care End Date 03/08/23 Electronically Signed by: Oneyda Daley, PT 12/30/22 0850 If you are in agreement with this Plan of Care, please return a signed and dated copy. I have reviewed this Plan of Care and certify that the skilled therapy services above are required to meet the patient?s needs. Physician Signature Date Printed Name and Credentials Clinical Instructor Signature Printed Name and Credentials
--- NOTE | 2022-12-28 12:00 | PT.OIE ---
Current Diagnoses Stress incontinence (female) (male) (12/28/22) Past Medical History (Last Reviewed 05/02/22 @ 10:04 by JOHN Hull) Allergic rhinitis (09/25/14) Dizziness Elevated prostate specific antigen (PSA) (09/29/17) Hernia Hypertension (05/21/11) Obstructive sleep apnea syndrome (05/21/11) Paronychia due to ingrown nail Plantar fasciitis of right foot Primary insomnia Prostate cancer Skin cancer Visit Care Team Role Provider Type Sushant Boyle MD Primary Care Provider Physician Specialty: Internal Medicine Address: [address] [place] [address], [address] [place] [address], [address] Email: [email or web address] JOHN Mejia Attending Provider Non-Staff Referring Provider Specialty: Nursing Address: [address] [place] [address], [facility] Email: Physical Therapy Initial Evaluation PT-OP-A Visit Information Start: 12/26/22 21:45 Freq: Status: Active Protocol: Document 12/28/22 09:59 AMB (Rec: 12/28/22 10:49 AMB [id number]) Out-Patient Physical Therapy Visit Information Visit Information Visit Type Initial Evaluation Visit Start Time 10:00 Visit Stop Time 10:45 Total Visit Minutes 45 Visit Number 1 PT-OP-B Current Condition Start: 12/26/22 21:45 Freq: Status: Active Protocol: Document 12/28/22 09:59 AMB (Rec: 12/28/22 10:49 AMB [id number]) Current Condition History of Current Condition Onset Date Oct 06, 2022 Current Complaints OSCAR s/p prostatectomy History of Current Condition 6-8 pads/ 24 period after radical prostatectomy. Has been doing exercises. Sit to stand, walking can cause a leak, stairs, doing the dishes , lifting, cough, laugh can cause a leak. Little leaks. Usually pretty dry overnight. Does have some urge, especially when bladder is full. PT-OP-C Subjective Start: 12/26/22 21:45 Freq: Status: Active Protocol: Document 12/28/22 10:00 AMB (Rec: 12/28/22 14:17 AMB [id number]) Patient Questionnaires Pelvic Pain and Urgency/Frequency Patient Symptom Scale Pelvic Pain Score 13 PT-OP-I Pelvic Floor Start: 12/26/22 21:45 Freq: Status: Active Protocol: Document 12/28/22 10:00 AMB (Rec: 12/28/22 14:19 AMB [id number]) Pelvic Floor Assessment Urine Pelvic Floor Surgery Yes: radical prostatectomy Urinary Symptoms Urge Sensation Leakage Size Small Leakage Cause Cough,Exercise,Lifting,Sneeze, Urge Leaks Per Day 24 Voiding Frequency 12/day Nocturia 2 Pads Used In 24 Hours 6 Urine Pad Type Depends SEMG (uV) Baseline 10 Quick Contraction 36 10 Second Contraction 20 PT-OP-T Assessment and Plan Start: 12/26/22 21:45 Freq: Status: Active Protocol: Document 12/28/22 10:00 AMB (Rec: 12/29/22 10:00 AMB [id number]) Physical Therapy Assessment Rehab Potential Rehabilitation Potential Good Evaluation Complexity Number of Personal Factors/Comorbidities 0 Number of Body Systems Impaired 1-2 Clinical Presentation at Evaluation Stable Impairments Impairments Functional Activities,Strength Goals Two Impairment Pelvic floor strength Short Term Goal (STG) Sushant will engage his pelvic floor for 10 seconds in standing without compensations . STG Duration 5 weeks Gang Pusher Goal (LTG) Sushant will move from sit to stand while engaging his pelvic floor. LTG Duration 10 weeks One Impairment Incontinence Short Term Goal (STG) Sushant will lift 10 pounds from the floor to waist height without leaking. STG Duration 5 weeks Gang Pusher Goal (LTG) Sushant will cough and sneeze without leaking urine. LTG Duration 10 weeks Assessment Summary Assessment Sushant had a radical prostatectomy September and since that time has been leaking. He has already been working on a HEP, but hasn't been doing as much pelvic floor strengthening as I would recommend. His muscular activity as assessed with sEMG was fairly good, but he does understand that his pelvic floor strength needs to be better now that it was in the past to continue to improve his continence. He will benefit from pelvic floor physical therapy to improve his pelvic floor strength and continence. Physical Therapy Plan Frequency and Duration Frequency of Treatment 1x/Week Duration of treatment (weeks) 10 Plan of Care Start Date 12/28/22 Plan of Care End Date 03/08/23 Therapeutic Interventions Therapeutic Interventions Home Exercise Program,Manual Therapy,Neuromuscular Re- education,Self-Care/Home Management,Therapeutic Activities,Therapeutic Exercises Modalities Biofeedback,Electric Stimulation Next Visit Focus/Plan Next Note Type Treatment Note Next Visit Plan progress HEP into standing, review sEMG
--- NOTE | 2023-01-05 14:26 | PT.OTN ---
Current Diagnoses Stress incontinence (female) (male) (01/05/23) Physical Therapy Treatment Note PT-OP-A Visit Information Start: 12/26/22 21:45 Freq: Status: Active Protocol: Document 01/05/23 12:54 AMB (Rec: 01/05/23 13:24 AMB [id number]) Out-Patient Physical Therapy Visit Information Visit Information Visit Type Treatment Note Visit Start Time 12:50 Visit Stop Time 13:30 Total Visit Minutes 40 Visit Number 2 PT-OP-B Current Condition Start: 12/26/22 21:45 Freq: Status: Active Protocol: Document 12/28/22 09:59 AMB (Rec: 12/28/22 10:49 AMB [id number]) Current Condition History of Current Condition Onset Date Oct 06, 2022 Current Complaints OSCAR s/p prostatectomy History of Current Condition 6-8 pads/ 24 period after radical prostatectomy. Has been doing exercises. Sit to stand, walking can cause a leak, stairs, doing the dishes , lifting, cough, laugh can cause a leak. Little leaks. Usually pretty dry overnight. Does have some urge, especially when bladder is full. PT-OP-C Subjective Start: 12/26/22 21:45 Freq: Status: Active Protocol: Document 01/05/23 12:54 AMB (Rec: 01/05/23 13:24 AMB [id number]) OP-PT Subjective Patient Comments Patient Comments Pt reports doing his exercise with the kegels. PT-OP-I Pelvic Floor Start: 12/26/22 21:45 Freq: Status: Active Protocol: Document 12/28/22 10:00 AMB (Rec: 12/28/22 14:19 AMB [id number]) Pelvic Floor Assessment Urine Pelvic Floor Surgery Yes: radical prostatectomy Urinary Symptoms Urge Sensation Leakage Size Small Leakage Cause Cough,Exercise,Lifting,Sneeze, Urge Leaks Per Day 24 Voiding Frequency 12/day Nocturia 2 Pads Used In 24 Hours 6 Urine Pad Type Depends SEMG (uV) Baseline 10 Quick Contraction 36 10 Second Contraction 20 PT-OP-Q Treatments Start: 12/26/22 21:45 Freq: Status: Active Protocol: Document 01/05/23 12:54 AMB (Rec: 01/05/23 13:24 AMB [id number]) Therapeutic Exercises Sitting Exercises rolling out Comments blue band Standing Exercises mini squat Reps/Minutes 10 Comments with kegels/ cues for contract pelvic floor first 1 Standing Exercise Name fran leo Reps/Minutes 10 PT-OP-T Assessment and Plan Start: 12/26/22 21:45 Freq: Status: Active Protocol: Document 01/05/23 12:54 AMB (Rec: 01/05/23 13:24 AMB [id number]) Physical Therapy Assessment Goals Two Impairment Pelvic floor strength Short Term Goal (STG) Sushant will engage his pelvic floor for 10 seconds in standing without compensations . STG Duration 5 weeks Prison Goal (LTG) Sushant will move from sit to stand while engaging his pelvic floor. LTG Duration 10 weeks One Impairment Incontinence Short Term Goal (STG) Sushant will lift 10 pounds from the floor to waist height without leaking. STG Duration 5 weeks Prison Goal (LTG) Sushant will cough and sneeze without leaking urine. LTG Duration 10 weeks Assessment Summary Assessment Pt wants to be able to golf and lift weights. Currently continent with stationary but does leak with activity (like washing windows today). Would recommend continued work into standing. Physical Therapy Plan Frequency and Duration Frequency of Treatment 1x/Week Duration of treatment (weeks) 10 Plan of Care Start Date 12/28/22 Plan of Care End Date 03/08/23 Therapeutic Interventions Therapeutic Interventions Home Exercise Program,Manual Therapy,Neuromuscular Re- education,Self-Care/Home Management,Therapeutic Activities,Therapeutic Exercises Modalities Biofeedback,Electric Stimulation Next Visit Focus/Plan Next Note Type Treatment Note Next Visit Plan progress HEP into standing, review sEMG
--- NOTE | 2023-01-12 14:28 | PT.OTN ---
Current Diagnoses Stress incontinence (female) (male) (01/12/23) Physical Therapy Treatment Note PT-OP-A Visit Information Start: 12/26/22 21:45 Freq: Status: Active Protocol: Document 01/12/23 13:34 AMB (Rec: 01/12/23 14:27 AMB [id number]) Out-Patient Physical Therapy Visit Information Visit Information Visit Type Treatment Note Visit Start Time 13:30 Visit Stop Time 14:15 Total Visit Minutes 40 Visit Number 3 PT-OP-B Current Condition Start: 12/26/22 21:45 Freq: Status: Active Protocol: Document 12/28/22 09:59 AMB (Rec: 12/28/22 10:49 AMB [id number]) Current Condition History of Current Condition Onset Date Oct 06, 2022 Current Complaints OSCAR s/p prostatectomy History of Current Condition 6-8 pads/ 24 period after radical prostatectomy. Has been doing exercises. Sit to stand, walking can cause a leak, stairs, doing the dishes , lifting, cough, laugh can cause a leak. Little leaks. Usually pretty dry overnight. Does have some urge, especially when bladder is full. PT-OP-C Subjective Start: 12/26/22 21:45 Freq: Status: Active Protocol: Document 01/12/23 13:34 AMB (Rec: 01/12/23 14:27 AMB [id number]) OP-PT Subjective Patient Comments Patient Comments Exerises every day. No huge changes, is noticing glutes when standing, trying not to engage glutes too much. PT-OP-I Pelvic Floor Start: 12/26/22 21:45 Freq: Status: Active Protocol: Document 12/28/22 10:00 AMB (Rec: 12/28/22 14:19 AMB [id number]) Pelvic Floor Assessment Urine Pelvic Floor Surgery Yes: radical prostatectomy Urinary Symptoms Urge Sensation Leakage Size Small Leakage Cause Cough,Exercise,Lifting,Sneeze, Urge Leaks Per Day 24 Voiding Frequency 12/day Nocturia 2 Pads Used In 24 Hours 6 Urine Pad Type Depends SEMG (uV) Baseline 10 Quick Contraction 36 10 Second Contraction 20 PT-OP-Q Treatments Start: 12/26/22 21:45 Freq: Status: Active Protocol: Document 01/12/23 13:34 AMB (Rec: 01/12/23 14:27 AMB [id number]) Therapeutic Exercises Standing Exercises weights Standing Exercise Name biceps 4# and shoulder flex 2# bilat Reps/Minutes 2x10 Comments cues to contract pelvic floor 2 Standing Exercise Name squats with 4# weights Reps/Minutes 2x10 mini squat Reps/Minutes 10 Comments with kegels/ cues for contract pelvic floor first 1 Standing Exercise Name mini lunge Reps/Minutes 10 PT-OP-T Assessment and Plan Start: 12/26/22 21:45 Freq: Status: Active Protocol: Document 01/12/23 13:34 AMB (Rec: 01/12/23 14:27 AMB [id number]) Physical Therapy Assessment Goals Two Impairment Pelvic floor strength Short Term Goal (STG) Sushant will engage his pelvic floor for 10 seconds in standing without compensations . STG Duration 5 weeks Senior Living Goal (LTG) Sushant will move from sit to stand while engaging his pelvic floor. LTG Duration 10 weeks One Impairment Incontinence Short Term Goal (STG) Sushant will lift 10 pounds from the floor to waist height without leaking. STG Duration 5 weeks Senior Living Goal (LTG) Sushant will cough and sneeze without leaking urine. LTG Duration 10 weeks Assessment Summary Assessment Pt does feel leaking with putting. But when doing a kegel feels like that is helpful, doesn't feel leaking afterward. Physical Therapy Plan Frequency and Duration Frequency of Treatment 1x/Week Duration of treatment (weeks) 10 Plan of Care Start Date 12/28/22 Plan of Care End Date 03/08/23 Therapeutic Interventions Therapeutic Interventions Home Exercise Program,Manual Therapy,Neuromuscular Re- education,Self-Care/Home Management,Therapeutic Activities,Therapeutic Exercises Modalities Biofeedback,Electric Stimulation Next Visit Focus/Plan Next Note Type Treatment Note Next Visit Plan progress HEP into standing, review sEMG
--- NOTE | 2023-01-18 13:33 | PT.OTN ---
Current Diagnoses Stress incontinence (female) (male) (01/18/23) Physical Therapy Treatment Note PT-OP-A Visit Information Start: 12/26/22 21:45 Freq: Status: Active Protocol: Document 01/18/23 12:55 AMB (Rec: 01/18/23 13:25 AMB [id number]) Out-Patient Physical Therapy Visit Information Visit Information Visit Type Treatment Note Visit Start Time 12:45 Visit Stop Time 13:30 Total Visit Minutes 40 Visit Number 4 PT-OP-B Current Condition Start: 12/26/22 21:45 Freq: Status: Active Protocol: Document 12/28/22 09:59 AMB (Rec: 12/28/22 10:49 AMB [id number]) Current Condition History of Current Condition Onset Date Oct 06, 2022 Current Complaints OSCAR s/p prostatectomy History of Current Condition 6-8 pads/ 24 period after radical prostatectomy. Has been doing exercises. Sit to stand, walking can cause a leak, stairs, doing the dishes , lifting, cough, laugh can cause a leak. Little leaks. Usually pretty dry overnight. Does have some urge, especially when bladder is full. PT-OP-C Subjective Start: 12/26/22 21:45 Freq: Status: Active Protocol: Document 01/18/23 12:55 AMB (Rec: 01/18/23 13:25 AMB [id number]) OP-PT Subjective Patient Comments Patient Comments Pt notes improved tolerance to exercise but is continuing to leak. Using 3-5 briefs in a day. PT-OP-I Pelvic Floor Start: 12/26/22 21:45 Freq: Status: Active Protocol: Document 12/28/22 10:00 AMB (Rec: 12/28/22 14:19 AMB [id number]) Pelvic Floor Assessment Urine Pelvic Floor Surgery Yes: radical prostatectomy Urinary Symptoms Urge Sensation Leakage Size Small Leakage Cause Cough,Exercise,Lifting,Sneeze, Urge Leaks Per Day 24 Voiding Frequency 12/day Nocturia 2 Pads Used In 24 Hours 6 Urine Pad Type Depends SEMG (uV) Baseline 10 Quick Contraction 36 10 Second Contraction 20 PT-OP-Q Treatments Start: 12/26/22 21:45 Freq: Status: Active Protocol: Document 01/18/23 12:55 AMB (Rec: 01/18/23 13:25 AMB [id number]) Therapeutic Exercises Standing Exercises 2 Standing Exercise Name squats with 10# Reps/Minutes 2x10 mini squat Reps/Minutes 10 Comments with kegels/ cues for contract pelvic floor first 1 Standing Exercise Name mini lunge Reps/Minutes 10 Comments added 10# PT-OP-T Assessment and Plan Start: 12/26/22 21:45 Freq: Status: Active Protocol: Document 01/18/23 12:55 AMB (Rec: 01/18/23 13:25 AMB [id number]) Physical Therapy Assessment Goals Two Impairment Pelvic floor strength Short Term Goal (STG) Sushant will engage his pelvic floor for 10 seconds in standing without compensations . STG Duration MET Deckhand Sponge Boat Goal (LTG) Sushant will move from sit to stand while engaging his pelvic floor. LTG Duration MET One Impairment Incontinence Short Term Goal (STG) Sushant will lift 10 pounds from the floor to waist height without leaking. STG Duration 5 weeks Longterm Goal (LTG) Sushant will cough and sneeze without leaking urine. LTG Duration 10 weeks Assessment Summary Assessment Pt does not leaking with forward lunges with 10# weights, encouraged in slow and gentle. Can move from sit to stand without leaking but walking around continues to cause leaking. Physical Therapy Plan Frequency and Duration Frequency of Treatment 1x/Week Duration of treatment (weeks) 10 Plan of Care Start Date 12/28/22 Plan of Care End Date 03/08/23 Therapeutic Interventions Therapeutic Interventions Home Exercise Program,Manual Therapy,Neuromuscular Re- education,Self-Care/Home Management,Therapeutic Activities,Therapeutic Exercises Modalities Biofeedback,Electric Stimulation Next Visit Focus/Plan Next Note Type Treatment Note Next Visit Plan progress HEP into standing, review sEMG
--- NOTE | 2023-02-02 09:02 | PT.OTN ---
Current Diagnoses Stress incontinence (female) (male) (02/02/23) Physical Therapy Treatment Note PT-OP-A Visit Information Start: 12/26/22 21:45 Freq: Status: Active Protocol: Document 02/02/23 08:25 AMB (Rec: 02/02/23 09:02 AMB [id number]) Out-Patient Physical Therapy Visit Information Visit Information Visit Type Treatment Note Visit Start Time 08:20 Visit Stop Time 09:00 Total Visit Minutes 40 Visit Number 5 PT-OP-B Current Condition Start: 12/26/22 21:45 Freq: Status: Active Protocol: Document 12/28/22 09:59 AMB (Rec: 12/28/22 10:49 AMB [id number]) Current Condition History of Current Condition Onset Date Oct 06, 2022 Current Complaints OSCAR s/p prostatectomy History of Current Condition 6-8 pads/ 24 period after radical prostatectomy. Has been doing exercises. Sit to stand, walking can cause a leak, stairs, doing the dishes , lifting, cough, laugh can cause a leak. Little leaks. Usually pretty dry overnight. Does have some urge, especially when bladder is full. PT-OP-C Subjective Start: 12/26/22 21:45 Freq: Status: Active Protocol: Document 02/02/23 08:25 AMB (Rec: 02/02/23 09:02 AMB [id number]) OP-PT Subjective Patient Comments Patient Comments Pt is feeling a bit plateaued. PT-OP-I Pelvic Floor Start: 12/26/22 21:45 Freq: Status: Active Protocol: Document 12/28/22 10:00 AMB (Rec: 12/28/22 14:19 AMB [id number]) Pelvic Floor Assessment Urine Pelvic Floor Surgery Yes: radical prostatectomy Urinary Symptoms Urge Sensation Leakage Size Small Leakage Cause Cough,Exercise,Lifting,Sneeze, Urge Leaks Per Day 24 Voiding Frequency 12/day Nocturia 2 Pads Used In 24 Hours 6 Urine Pad Type Depends SEMG (uV) Baseline 10 Quick Contraction 36 10 Second Contraction 20 PT-OP-Q Treatments Start: 12/26/22 21:45 Freq: Status: Active Protocol: Document 02/02/23 08:25 AMB (Rec: 02/02/23 09:02 AMB [id number]) Therapeutic Exercises Standing Exercises squat to heel riase Standing Exercise Name pre jump Reps/Minutes 10 Comments with pelvic floor heel raise Standing Exercise Name HEP Reps/Minutes 10 Comments with pelvic floor weights Standing Exercise Name shoulder abd 5# Reps/Minutes 2x10 Comments cues to contract pelvic floor 2 Standing Exercise Name squats with 10# Reps/Minutes 2x10 1 Standing Exercise Name mini lunge Reps/Minutes 10 Comments added 10# PT-OP-T Assessment and Plan Start: 12/26/22 21:45 Freq: Status: Active Protocol: Document 02/02/23 08:25 AMB (Rec: 02/02/23 09:02 AMB [id number]) Physical Therapy Assessment Goals Two Impairment Pelvic floor strength Short Term Goal (STG) Sushant will engage his pelvic floor for 10 seconds in standing without compensations . STG Duration MET Care Home Goal (LTG) Sushant will move from sit to stand while engaging his pelvic floor. LTG Duration MET One Impairment Incontinence Short Term Goal (STG) Sushant will lift 10 pounds from the floor to waist height without leaking. STG Duration 5 weeks Director Of Teaching And Learning Goal (LTG) Sushant will cough and sneeze without leaking urine. LTG Duration 10 weeks Assessment Summary Assessment Pt tolerating uneven terrain training re trampoline with good focus on pelvic floor strength and without leaking. Physical Therapy Plan Frequency and Duration Frequency of Treatment 1x/Week Duration of treatment (weeks) 10 Plan of Care Start Date 12/28/22 Plan of Care End Date 03/08/23 Therapeutic Interventions Therapeutic Interventions Home Exercise Program,Manual Therapy,Neuromuscular Re- education,Self-Care/Home Management,Therapeutic Activities,Therapeutic Exercises Modalities Biofeedback,Electric Stimulation Next Visit Focus/Plan Next Note Type Treatment Note Next Visit Plan progress HEP into standing, review sEMG
--- NOTE | 2023-02-08 15:16 | PT.OTN ---
Current Diagnoses Stress incontinence (female) (male) (02/08/23) Physical Therapy Treatment Note PT-OP-A Visit Information Start: 12/26/22 21:45 Freq: Status: Active Protocol: Document 02/08/23 12:00 AMB (Rec: 02/08/23 12:40 AMB [id number]) Out-Patient Physical Therapy Visit Information Visit Information Visit Type Treatment Note Visit Start Time 12:00 Visit Stop Time 12:45 Total Visit Minutes 45 Visit Number 6 PT-OP-B Current Condition Start: 12/26/22 21:45 Freq: Status: Active Protocol: Document 12/28/22 09:59 AMB (Rec: 12/28/22 10:49 AMB [id number]) Current Condition History of Current Condition Onset Date Oct 06, 2022 Current Complaints OSCAR s/p prostatectomy History of Current Condition 6-8 pads/ 24 period after radical prostatectomy. Has been doing exercises. Sit to stand, walking can cause a leak, stairs, doing the dishes , lifting, cough, laugh can cause a leak. Little leaks. Usually pretty dry overnight. Does have some urge, especially when bladder is full. PT-OP-C Subjective Start: 12/26/22 21:45 Freq: Status: Active Protocol: Document 02/08/23 12:00 AMB (Rec: 02/08/23 12:40 AMB [id number]) OP-PT Subjective Patient Comments Patient Comments Pt used 2 pads during the day on Wednesday. Does leak more with working out, noticing more of an issue with bend press. PT-OP-I Pelvic Floor Start: 12/26/22 21:45 Freq: Status: Active Protocol: Document 12/28/22 10:00 AMB (Rec: 12/28/22 14:19 AMB [id number]) Pelvic Floor Assessment Urine Pelvic Floor Surgery Yes: radical prostatectomy Urinary Symptoms Urge Sensation Leakage Size Small Leakage Cause Cough,Exercise,Lifting,Sneeze, Urge Leaks Per Day 24 Voiding Frequency 12/day Nocturia 2 Pads Used In 24 Hours 6 Urine Pad Type Depends SEMG (uV) Baseline 10 Quick Contraction 36 10 Second Contraction 20 PT-OP-Q Treatments Start: 12/26/22 21:45 Freq: Status: Active Protocol: Document 02/08/23 12:00 AMB (Rec: 02/08/23 12:40 AMB [id number]) Gym Equipment Shuttle Recovery Unilateral Squats Details Left Resistance 100# Shuttle Recovery Platform Stable Reps/Time 2x20 Therapeutic Exercises Supine Exercises dumbell press Supine Exercise Name 10# each hand Reps/Minutes 2x10 Standing Exercises heel raise Standing Exercise Name HEP Reps/Minutes 10 Comments with pelvic floor weights Standing Exercise Name shoulder abd 5# Reps/Minutes 2x10 Comments cues to contract pelvic floor 1 Standing Exercise Name mini lunge Reps/Minutes 10 Comments added 10# PT-OP-T Assessment and Plan Start: 12/26/22 21:45 Freq: Status: Active Protocol: Document 02/08/23 12:00 AMB (Rec: 02/08/23 12:40 AMB [id number]) Physical Therapy Assessment Goals Two Impairment Pelvic floor strength Short Term Goal (STG) Sushant will engage his pelvic floor for 10 seconds in standing without compensations . STG Duration MET Mcfp Goal (LTG) Sushant will move from sit to stand while engaging his pelvic floor. LTG Duration MET One Impairment Incontinence Short Term Goal (STG) Sushant will lift 10 pounds from the floor to waist height without leaking. STG Duration 5 weeks Polymer Scientist Goal (LTG) Sushant will cough and sneeze without leaking urine. LTG Duration 10 weeks Assessment Summary Assessment Pt has been increasing weight liftin gand noticing increased leaking with that. Encouraged pt to really focus on controlling pelvic floor when noticing leaking like when putting weights down controlling descent. Physical Therapy Plan Frequency and Duration Frequency of Treatment 1x/Week Duration of treatment (weeks) 10 Plan of Care Start Date 12/28/22 Plan of Care End Date 03/08/23 Therapeutic Interventions Therapeutic Interventions Home Exercise Program,Manual Therapy,Neuromuscular Re- education,Self-Care/Home Management,Therapeutic Activities,Therapeutic Exercises Modalities Biofeedback,Electric Stimulation Next Visit Focus/Plan Next Note Type Treatment Note Next Visit Plan progress HEP into standing, review sEMG
--- NOTE | 2023-02-15 15:45 | PT.OTN ---
Current Diagnoses Stress incontinence (female) (male) (02/15/23) Physical Therapy Treatment Note PT-OP-A Visit Information Start: 12/26/22 21:45 Freq: Status: Active Protocol: Document 02/15/23 10:01 AMB (Rec: 02/15/23 10:59 AMB [id number]) Out-Patient Physical Therapy Visit Information Visit Information Visit Type Treatment Note Visit Start Time 10:00 Visit Stop Time 10:45 Total Visit Minutes 45 Visit Number 7 PT-OP-B Current Condition Start: 12/26/22 21:45 Freq: Status: Active Protocol: Document 12/28/22 09:59 AMB (Rec: 12/28/22 10:49 AMB [id number]) Current Condition History of Current Condition Onset Date Oct 06, 2022 Current Complaints OSCAR s/p prostatectomy History of Current Condition 6-8 pads/ 24 period after radical prostatectomy. Has been doing exercises. Sit to stand, walking can cause a leak, stairs, doing the dishes , lifting, cough, laugh can cause a leak. Little leaks. Usually pretty dry overnight. Does have some urge, especially when bladder is full. PT-OP-C Subjective Start: 12/26/22 21:45 Freq: Status: Active Protocol: Document 02/15/23 10:01 AMB (Rec: 02/15/23 10:59 AMB [id number]) OP-PT Subjective Patient Comments Patient Comments At least 4 pad if busy with a day of yardwork and weight lifting, 2 if not as busy. PT-OP-I Pelvic Floor Start: 12/26/22 21:45 Freq: Status: Active Protocol: Document 12/28/22 10:00 AMB (Rec: 12/28/22 14:19 AMB [id number]) Pelvic Floor Assessment Urine Pelvic Floor Surgery Yes: radical prostatectomy Urinary Symptoms Urge Sensation Leakage Size Small Leakage Cause Cough,Exercise,Lifting,Sneeze, Urge Leaks Per Day 24 Voiding Frequency 12/day Nocturia 2 Pads Used In 24 Hours 6 Urine Pad Type Depends SEMG (uV) Baseline 10 Quick Contraction 36 10 Second Contraction 20 PT-OP-Q Treatments Start: 12/26/22 21:45 Freq: Status: Active Protocol: Document 02/15/23 10:01 AMB (Rec: 02/15/23 10:59 AMB [id number]) Gym Equipment Shuttle Recovery Bilateral Squats Details plyos Resistance 50 Shuttle Recovery Platform Stable Reps/Time 5 Therapeutic Exercises Standing Exercises heel raise Standing Exercise Name HEP Reps/Minutes 10 Comments with pelvic floor weights Standing Exercise Name shoulder abd 5# Reps/Minutes 2x10 Comments cues to contract pelvic floor mini squat Reps/Minutes 10 Comments with kegels/ cues for contract pelvic floor first PT-OP-T Assessment and Plan Start: 12/26/22 21:45 Freq: Status: Active Protocol: Document 02/15/23 10:01 AMB (Rec: 02/15/23 10:59 AMB [id number]) Physical Therapy Assessment Goals Two Impairment Pelvic floor strength Short Term Goal (STG) Sushant will engage his pelvic floor for 10 seconds in standing without compensations . STG Duration MET Trainer Goal (LTG) Sushant will move from sit to stand while engaging his pelvic floor. LTG Duration MET One Impairment Incontinence Short Term Goal (STG) Sushant will lift 10 pounds from the floor to waist height without leaking. STG Duration 5 weeks Senior Living Goal (LTG) Sushant will cough and sneeze without leaking urine. LTG Duration 10 weeks Assessment Summary Assessment Mornings are better than afternoon/evenings. Holding off on lunges for now due to increased knee pain. Physical Therapy Plan Frequency and Duration Frequency of Treatment 1x/Week Duration of treatment (weeks) 10 Plan of Care Start Date 12/28/22 Plan of Care End Date 03/08/23 Therapeutic Interventions Therapeutic Interventions Home Exercise Program,Manual Therapy,Neuromuscular Re- education,Self-Care/Home Management,Therapeutic Activities,Therapeutic Exercises Modalities Biofeedback,Electric Stimulation Next Visit Focus/Plan Next Note Type Treatment Note Next Visit Plan progress HEP into standing,
--- NOTE | 2023-03-02 16:00 | PT.OTN ---
Current Diagnoses Stress incontinence (female) (male) (03/02/23) Physical Therapy Treatment Note PT-OP-A Visit Information Start: 12/26/22 21:45 Freq: Status: Active Protocol: Document 03/02/23 10:02 AMB (Rec: 03/02/23 10:42 AMB [id number]) Out-Patient Physical Therapy Visit Information Visit Information Visit Type Treatment Note Visit Start Time 10:00 Visit Stop Time 10:45 Total Visit Minutes 45 Visit Number 8 PT-OP-B Current Condition Start: 12/26/22 21:45 Freq: Status: Active Protocol: Document 12/28/22 09:59 AMB (Rec: 12/28/22 10:49 AMB [id number]) Current Condition History of Current Condition Onset Date Oct 06, 2022 Current Complaints OSCAR s/p prostatectomy History of Current Condition 6-8 pads/ 24 period after radical prostatectomy. Has been doing exercises. Sit to stand, walking can cause a leak, stairs, doing the dishes , lifting, cough, laugh can cause a leak. Little leaks. Usually pretty dry overnight. Does have some urge, especially when bladder is full. PT-OP-C Subjective Start: 12/26/22 21:45 Freq: Status: Active Protocol: Document 03/02/23 10:02 AMB (Rec: 03/02/23 10:42 AMB [id number]) OP-PT Subjective Patient Comments Patient Comments Feels like incontinence has plateaued. Finds it hard to do pelvic floor contraction with sit to stand as far as remembering to do that. PT-OP-I Pelvic Floor Start: 12/26/22 21:45 Freq: Status: Active Protocol: Document 12/28/22 10:00 AMB (Rec: 12/28/22 14:19 AMB [id number]) Pelvic Floor Assessment Urine Pelvic Floor Surgery Yes: radical prostatectomy Urinary Symptoms Urge Sensation Leakage Size Small Leakage Cause Cough,Exercise,Lifting,Sneeze, Urge Leaks Per Day 24 Voiding Frequency 12/day Nocturia 2 Pads Used In 24 Hours 6 Urine Pad Type Depends SEMG (uV) Baseline 10 Quick Contraction 36 10 Second Contraction 20 PT-OP-Q Treatments Start: 12/26/22 21:45 Freq: Status: Active Protocol: Document 03/02/23 10:02 AMB (Rec: 03/02/23 10:42 AMB [id number]) Therapeutic Exercises Supine Exercises dumbell press Supine Exercise Name 10# each hand Reps/Minutes 2x10 Comments cue breath Standing Exercises heel raise Standing Exercise Name HEP Reps/Minutes 10 Comments with pelvic floor weights Standing Exercise Name shoulder abd 5# Reps/Minutes 2x10 Comments cues to contract pelvic floor 2 Standing Exercise Name sit to stand Comments cue gentle relax to avoid leaking once in standing mini squat Reps/Minutes 10 Comments with kegels/ cues for contract pelvic floor first PT-OP-T Assessment and Plan Start: 12/26/22 21:45 Freq: Status: Active Protocol: Document 03/02/23 10:02 AMB (Rec: 03/02/23 10:42 AMB [id number]) Physical Therapy Assessment Goals Two Impairment Pelvic floor strength Short Term Goal (STG) Sushant will engage his pelvic floor for 10 seconds in standing without compensations . STG Duration MET Brewing Technician Goal (LTG) Sushant will move from sit to stand while engaging his pelvic floor. LTG Duration MET One Impairment Incontinence Short Term Goal (STG) Sushant will lift 10 pounds from the floor to waist height without leaking. STG Duration progress made- needs to kegel first, 50# is more challenging Skilled Nursing Goal (LTG) Sushant will cough and sneeze without leaking urine. LTG Duration progress made- standing sneeze can leak Assessment Summary Assessment Pt continues to leak in the evening, especially with weight lifting. Pt notices some leaking with increased pressure situations, spent time discussing pressure management. Pt would benefit from continued PT to progress pelvic floor exercises and manage pressure considering the high level of activity he wants to retain. Physical Therapy Plan Frequency and Duration Frequency of Treatment 1x/Week Duration of treatment (weeks) 4 Plan of Care Start Date 03/02/23 Plan of Care End Date 03/30/23 Therapeutic Interventions Therapeutic Interventions Home Exercise Program,Manual Therapy,Neuromuscular Re- education,Self-Care/Home Management,Therapeutic Activities,Therapeutic Exercises Modalities Biofeedback,Electric Stimulation Next Visit Focus/Plan Next Note Type Treatment Note Next Visit Plan progress HEP into standing,
--- NOTE | 2023-03-02 16:00 | PT.OPPOC ---
Physical, Occupational & Speech Therapy At Current Diagnoses Stress incontinence (female) (male) (03/02/23) Visit Care Team Role Provider Type Sushant Boyle MD Primary Care Provider Physician Specialty: Internal Medicine Address: [address] [place] [address], [address], [address] Email: [email or web address] Mejia Attending Provider Non-Staff Referring Provider Specialty: Nursing Address: [address] [place] [address], [id number] Email: Plan Of Care PT-OP-T Assessment and Plan Start: 12/26/22 21:45 Freq: Status: Active Protocol: Document 03/02/23 10:02 AMB (Rec: 03/02/23 10:42 AMB [id number]) Physical Therapy Assessment Goals Two Impairment Pelvic floor strength Short Term Goal (STG) Sushant will engage his pelvic floor for 10 seconds in standing without compensations . STG Duration MET Halfway Goal (LTG) Sushant will move from sit to stand while engaging his pelvic floor. LTG Duration MET One Impairment Incontinence Short Term Goal (STG) Sushant will lift 10 pounds from the floor to waist height without leaking. STG Duration progress made- needs to kegel first, 50# is more challenging Remote Sensing Scientist Goal (LTG) Sushant will cough and sneeze without leaking urine. LTG Duration progress made- standing sneeze can leak Assessment Summary Assessment Pt continues to leak in the evening, especially with weight lifting. Pt notices some leaking with increased pressure situations, spent time discussing pressure management. Pt would benefit from continued PT to progress pelvic floor exercises and manage pressure considering the high level of activity he wants to retain. Physical Therapy Plan Frequency and Duration Frequency of Treatment 1x/Week Duration of treatment (weeks) 4 Plan of Care Start Date 03/02/23 Plan of Care End Date 03/30/23 Therapeutic Interventions Therapeutic Interventions Home Exercise Program,Manual Therapy,Neuromuscular Re- education,Self-Care/Home Management,Therapeutic Activities,Therapeutic Exercises Modalities Biofeedback,Electric Stimulation Next Visit Focus/Plan Next Note Type Treatment Note Next Visit Plan progress HEP into standing, Plan of Care Dates Plan of Care Start Date 03/02/23 Plan of Care End Date 03/30/23 Electronically Signed by: Oneyda Daley, LIBIA 03/09/23 0835 If you are in agreement with this Plan of Care, please return a signed and dated copy. I have reviewed this Plan of Care and certify that the skilled therapy services above are required to meet the patient?s needs. Physician Signature Date Printed Name and Credentials Clinical Instructor Signature Printed Name and Credentials
--- NOTE | 2023-03-17 12:50 | PT.OTN ---
Current Diagnoses Stress incontinence (female) (male) (03/17/23) Physical Therapy Treatment Note PT-OP-A Visit Information Start: 12/26/22 21:45 Freq: Status: Active Protocol: Document 03/17/23 12:00 AMB (Rec: 03/17/23 12:43 AMB [id number]) Out-Patient Physical Therapy Visit Information Visit Information Visit Type Treatment Note Visit Start Time 12:00 Visit Stop Time 12:45 Total Visit Minutes 45 Visit Number 9 PT-OP-B Current Condition Start: 12/26/22 21:45 Freq: Status: Active Protocol: Document 12/28/22 09:59 AMB (Rec: 12/28/22 10:49 AMB [id number]) Current Condition History of Current Condition Onset Date Oct 06, 2022 Current Complaints OSCAR s/p prostatectomy History of Current Condition 6-8 pads/ 24 period after radical prostatectomy. Has been doing exercises. Sit to stand, walking can cause a leak, stairs, doing the dishes , lifting, cough, laugh can cause a leak. Little leaks. Usually pretty dry overnight. Does have some urge, especially when bladder is full. PT-OP-C Subjective Start: 12/26/22 21:45 Freq: Status: Active Protocol: Document 03/17/23 12:00 AMB (Rec: 03/17/23 12:43 AMB [id number]) OP-PT Subjective Patient Comments Patient Comments Pt is currently holding kegel for 20 seconds. PT-OP-I Pelvic Floor Start: 12/26/22 21:45 Freq: Status: Active Protocol: Document 12/28/22 10:00 AMB (Rec: 12/28/22 14:19 AMB [id number]) Pelvic Floor Assessment Urine Pelvic Floor Surgery Yes: radical prostatectomy Urinary Symptoms Urge Sensation Leakage Size Small Leakage Cause Cough,Exercise,Lifting,Sneeze, Urge Leaks Per Day 24 Voiding Frequency 12/day Nocturia 2 Pads Used In 24 Hours 6 Urine Pad Type Depends SEMG (uV) Baseline 10 Quick Contraction 36 10 Second Contraction 20 PT-OP-Q Treatments Start: 12/26/22 21:45 Freq: Status: Active Protocol: Document 03/17/23 12:00 AMB (Rec: 03/17/23 12:43 AMB [id number]) Therapeutic Exercises Standing Exercises heel raise Standing Exercise Name HEP Reps/Minutes 10 Comments with pelvic floor 2 Standing Exercise Name sit to stand Comments cue gentle relax to avoid leaking once in standing mini squat Reps/Minutes 10 Comments with kegels/ cues for contract pelvic floor first PT-OP-T Assessment and Plan Start: 12/26/22 21:45 Freq: Status: Active Protocol: Document 03/17/23 12:00 AMB (Rec: 03/17/23 12:43 AMB [id number]) Physical Therapy Assessment Goals Two Impairment Pelvic floor strength Short Term Goal (STG) Sushant will engage his pelvic floor for 10 seconds in standing without compensations . STG Duration MET Director Of Provider Relations Goal (LTG) Sushant will move from sit to stand while engaging his pelvic floor. LTG Duration MET One Impairment Incontinence Short Term Goal (STG) Sushant will lift 10 pounds from the floor to waist height without leaking. STG Duration MET Director Of Provider Relations Goal (LTG) Sushant will cough and sneeze without leaking urine. LTG Duration progress made- standing sneeze can leak Assessment Summary Assessment Using 3 pads during the day time (needs an extra pad if doing yard work or walking for exercise). 50reps/day split up into 3-5 sets for 10 second hold. Try to do in standing when able. Almost 6 months surgery. Scheduled in [place] for PT in May. Leaking in afternoon is the worst, sometimes leaks after releasing the kegel. Pt is ready for d/c, will be working on his HEP until sees PT in [place]. Physical Therapy Plan Frequency and Duration Frequency of Treatment 1x/Week Duration of treatment (weeks) 4 Plan of Care Start Date 03/02/23 Plan of Care End Date 03/30/23 Therapeutic Interventions Therapeutic Interventions Home Exercise Program,Manual Therapy,Neuromuscular Re- education,Self-Care/Home Management,Therapeutic Activities,Therapeutic Exercises Modalities Biofeedback,Electric Stimulation Next Visit Focus/Plan Next Note Type Treatment Note Next Visit Plan progress HEP into standing,
== END 2023-03-18 14:01 | disposition home or self-care (01) ==
LOC: PHYS 12:00
PROVIDERS: PCP Internal Medicine; Referring Provider Nurse Practitioner Family; Visit Provider Nurse Practitioner Family
DX: N39.3 Stress incontinence (female) (male) (principal)
CPT/HCPCS: 97110; 97161

== ENCOUNTER → 2023-04-09 12:39 | Outpatient (CLI) | payer MEDICARE, BC, SELFPAY ==
--- NOTE | 2023-04-09 12:41 | DI.US.S_ITS ---
PROCEDURE: US PERIPH VENOUS LOW EXTREM LT INDICATIONS: rule out DVT, left lower leg pain and swelling TECHNIQUE: Real-time imaging, as well as color and pulse Doppler interrogation, were performed of the lower extremity deep veins from the inguinal ligament to the popliteal fossa, with documentation of the visualized calf veins. COMPARISON: None. FINDINGS: The common femoral, femoral, popliteal, and the visualized calf veins are normally compressible, and free of intraluminal thrombus. Color and pulse Doppler demonstrate normal phasic intraluminal flow. There is normal augmentation response to distal compression maneuver. IMPRESSION: No findings of left lower extremity deep venous thrombosis. Dictated by: Jovany Díaz M.D. on 04/09/2023 at 13:50 Approved by: Jovany Díaz M.D. on 04/09/2023 at 13:51
== END ==
PROVIDERS: PCP Internal Medicine; Referring Provider Internal Medicine; Visit Provider Internal Medicine
DX: M79.605 Pain in left leg (principal); M79.89 Other specified soft tissue disorders
CPT/HCPCS: 93971

== ENCOUNTER → 2024-01-04 09:23 | Outpatient (CLI) | payer MEDICARE, BC, SELFPAY ==
[2024-01-04 10:18] LABS: Add Manual Diff / Slide Review NO; Basophils Absolute Auto 0 /uL (0-100); Basophils Percent Auto 0.5 % (0-2); Eosinophils Absolute Auto 100 /uL (0-450); Hematocrit 40.3 % (41-53); Hemoglobin 13.8 g/dL (13.5-17.5); Lymphocytes Absolute Auto 1200 /uL (1100-4500); Lymphocytes Percent Auto 20.2 % (25-40); Mean Corpuscular HGB Conc 34.3 % (30-36); Mean Corpuscular Hemoglobin 33.6 PG (26-34); Mean Corpuscular Volume 97.9 fL (80-100); Monocytes Absolute Auto 500 /uL (0-900); Neutrophils Absolute Auto 4200 /uL (1500-7000); Neutrophils Percent Auto 69.3 % (50-75); Platelet Count 174 X10^3/uL (150-400); Red Blood Cell Count 4.12 X10^6/uL (4.5-5.9); Red Cell Distribution Width 13.4 % (11.6-14.8); White Blood Cell Count 6.1 X10^3/uL (4.5-11.0)
[2024-01-04 10:41] LABS: Alanine Aminotransferase 24 IU/L (<50); Albumin 4.5 g/dL (3.5-5.0); Albumin Globulin Ratio 2.3 (1.0-2.8); Alkaline Phosphatase 79 U/L (38-126); Aspartate Aminotransferase 21 IU/L (17-59); BUN Creatinine Ratio 28.1 (6-22); Bilirubin Total 0.5 mg/dL (0.2-1.3); Blood Urea Nitrogen 25 mg/dL (9-20); C-Reactive Protein Quant < 0.5 mg/dL (<1.0); Calcium 9.2 mg/dL (8.4-10.2); Carbon Dioxide 26 mmol/L (22-32); Chloride 106 mmol/L (98-107); Creatine Kinase 56 U/L (55-170); Estimated Glomerular Filt Rate > 60 mL/min (>60); Glucose 120 mg/dL (80-110); HEMOLYSIS < 15 (0-50); Magnesium 2.3 mg/dL (1.6-2.3); Potassium 4.8 mmol/L (3.4-5.1); Sodium 137 mmol/L (137-145); Total Protein 6.5 g/dL (6.3-8.2)
[2024-01-04 11:06] LABS: TSH w/ Reflex to FT4 0.43 uIU/mL (0.47-4.68)
[2024-01-04 15:43] LABS: Free T4, Direct Thyroxine 0.81 ng/dL (0.78-2.19)
== END ==
LOC: LAB 09:24
PROVIDERS: PCP Internal Medicine; Referring Provider Internal Medicine; Visit Provider Internal Medicine
DX: I10 Essential (primary) hypertension (principal); M79.10 Myalgia, unspecified site; R25.2 Cramp and spasm
CPT/HCPCS: 36415; 80053; 82550; 83735; 84439; 84443; 85025; 86140

== ENCOUNTER → 2024-02-09 08:45 | Outpatient (CLI) | payer MEDICARE, BC, SELFPAY ==
[2024-02-09 09:54] LABS: HEMOLYSIS < 15 (0-50); Iron 91 ug/dL (49-181)
[2024-02-09 10:10] LABS: Percent Iron Saturation 29 % (20-50); Total Iron Binding Capacity 310 ug/dL (261-462); Transferrin 249 mg/dL (206-381)
[2024-02-09 10:29] LABS: Ferritin 30 ng/mL (18-464)
== END ==
PROVIDERS: PCP Internal Medicine; Referring Provider Nurse Practitioner; Visit Provider Nurse Practitioner
DX: G25.81 Restless legs syndrome (principal); E83.10 Disorder of iron metabolism, unspecified
CPT/HCPCS: 36415; 82728; 83540; 83550

== ENCOUNTER → 2024-04-04 11:09 | Outpatient (CLI) | payer MEDICARE, BC, SELFPAY ==
--- NOTE | 2024-04-04 11:11 | DI.RAD.S_ITS ---
PROCEDURE: XR CHEST 2V INDICATIONS: left flank pain TECHNIQUE: 2 views of the chest were acquired. COMPARISON: [facility], , CHEST 1 VIEW, 12/03/2016, 21:00. FINDINGS: Surgical changes and devices: None. Lungs and pleura: Lungs are clear. No pleural effusions or pneumothorax. Mediastinum: Mediastinal contours are normal. Heart size is normal. Bones and chest wall: No suspicious bony abnormalities. Soft tissues appear unremarkable. IMPRESSION: No acute cardiopulmonary abnormality is seen. Dictated by: Ortiz Camilo M.D. on 04/04/2024 at 15:15 Approved by: Ortiz Camilo M.D. on 04/04/2024 at 15:15
[2024-04-04 12:32] LABS: Appearance Urine UA CLEAR; Bilirubin Urine UA NEGATIVE (NEGATIVE); Color Urine UA YELLOW; Glucose Urine UA NEGATIVE (Negative); Ketones Urine UA TRACE (NEGATIVE); Leukocyte Esterase Urine UA NEGATIVE (NEGATIVE); Nitrite Urine UA NEGATIVE (Negative); Occult Blood Urine UA NEGATIVE (Negative); Protein Urine UA NEGATIVE (Negative); Specific Gravity Urine UA 1.025 (1.000-1.035); Urobilinogen Urine UA 0.2 E.U./dL (0.2)
[2024-04-04 13:33] LABS: Bacteria Urine None Seen; RBC Urine None Seen (0-5/HPF); Squamous Epithelial Cell Urine None Seen (0-5/HPF); Urine Volume 10mL (spun); WBC Urine 0-1/HPF (0-5/HPF)
[2024-04-04 13:34] LABS: Culture Indicated Urine Cult Not Indicated
== END ==
LOC: RAD 11:11
PROVIDERS: PCP Internal Medicine; Referring Provider Internal Medicine; Visit Provider Internal Medicine
DX: S39.012A Strain of muscle, fascia and tendon of lower back, initial encounter (principal); R10.9 Unspecified abdominal pain; X58.XXXA Exposure to other specified factors, initial encounter
CPT/HCPCS: 71046; 81001

== ENCOUNTER → 2024-06-02 13:10 | Outpatient (CLI) | payer MEDICARE, OTHER, SELFPAY ==
[2024-06-02 15:57] LABS: Prostate Specific Antigen < 0.064 ng/mL (0.10-4.00)
== END ==
PROVIDERS: PCP Internal Medicine; Referring Provider Nurse Practitioner Family; Visit Provider Nurse Practitioner Family
DX: C61 Malignant neoplasm of prostate (principal)
CPT/HCPCS: 36415; 84153

== ENCOUNTER → 2024-12-29 07:28 | Outpatient (CLI) | payer MEDICARE, OTHER, SELFPAY ==
[2024-12-29 08:40] LABS: Iron 100 ug/dL (49-181)
[2024-12-29 09:12] LABS: Ferritin 106 ng/mL (18-464)
== END ==
PROVIDERS: Family Provider Internal Medicine; PCP Internal Medicine; Referring Provider Nurse Practitioner; Visit Provider Nurse Practitioner
DX: E83.10 Disorder of iron metabolism, unspecified (principal); G25.81 Restless legs syndrome; G47.33 Obstructive sleep apnea (adult) (pediatric); G47.9 Sleep disorder, unspecified
CPT/HCPCS: 36415; 82728; 83540

== ENCOUNTER → 2025-01-17 18:33 | Outpatient (CLI) | payer MEDICARE, OTHER, SELFPAY ==
--- NOTE | 2025-01-17 18:35 | DI.MRI.S_ITS ---
PROCEDURE: MR KNEE LT WO CON INDICATIONS: internal derangement of left knee TECHNIQUE: Noncontrast sagittal PD fast spin echo and T2 fast spin echo with fat saturation, sagittal 3-D FLASH with fat saturation; coronal T1 spin echo and PD fast spin echo with fat saturation, and axial PD fast spin echo with fat saturation through the knee. COMPARISON: [facility], CR, XR KNEE ARTHRIT[facility] SERIES LT, 12/22/2024, 9:50. FINDINGS: Image quality: Excellent. Menisci: There is linear oblique high T2 signal intensity traversing the middle and peripheral thirds of the medial meniscal body and posterior horn, demonstrating inferior articular surface extension, indicating oblique tearing. Lateral meniscus is intact Cruciate ligaments: The anterior and posterior cruciate ligaments appear intact. Medial structures: The medial collateral ligament appears intact, but demonstrates mild surrounding T2 signal elevation Visualized portions of the pes anserinus tendons appear normal. No abnormal bursal fluid. Lateral structures: The lateral collateral ligament, long and short heads of the biceps femoris tendon appear intact. The popliteus tendon appears normal. Iliotibial band appears normal. Anterior structures: The quadriceps and patellar tendons appear intact. Moderate T2 signal elevation within the patellar tendon at the patellar insertion site. Mild T2 signal elevation within the quadriceps tendon at the patellar insertion site. Patellar alignment is normal. No femoral trochlear dysplasia or ventral trochlear prominence. No edema in the infrapatellar fat pad. Bones and cartilage: No bone marrow contusions or fractures. . Mild ill- defined STIR signal elevation within the mid weight-bearing aspect of the medial femoral condyle. Moderate articular cartilage loss diffusely overlies the weight-bearing aspects of the medial femoral condyle and medial tibial plateau. Focal region of moderate articular cartilage loss overlies the patellar apex. Joint space: There is physiologic knee joint fluid. Trace Chandra's cyst. Normal appearing synovial plicae are incidentally noted. IMPRESSION: 1. Medial meniscal tear. 2. Tricompartmental osteoarthritis with associated articular cartilage loss. 3. Mild quadriceps and patellar tendinopathy. 4. Medial collateral ligament strain. Dictated by: Marycarmen Davis M.D. on 01/18/2025 at 10:47 Approved by: Marycarmen Davis M.D. on 01/18/2025 at 10:50
== END ==
PROVIDERS: Family Provider Internal Medicine; PCP Internal Medicine; Referring Provider Internal Medicine; Visit Provider Orthopaedic Surgery
DX: S83.242A Other tear of medial meniscus, current injury, left knee, initial encounter (principal); S83.412A Sprain of medial collateral ligament of left knee, initial encounter; M17.12 Unilateral primary osteoarthritis, left knee; M23.92 Unspecified internal derangement of left knee
CPT/HCPCS: 73721

== ENCOUNTER 2025-01-25 09:00 | Outpatient (RCR) | payer MEDICARE, OTHER, SELFPAY ==
--- NOTE | 2024-12-29 14:23 | PT.OIE ---
Current Diagnoses Other disorders of patella, left knee (12/29/24) Unspecified internal derangement of left knee (12/29/24) Past Medical History (Last Updated 04/04/24 @ 11:04 by Leonides Valentine MD) Allergic rhinitis (09/25/14) Dizziness Elevated prostate specific antigen (PSA) (09/29/17) GERD without esophagitis Hernia Hyperlipidemia Hypertension (05/21/11) Obstructive sleep apnea syndrome (05/21/11) Paronychia due to ingrown nail Plantar fasciitis of right foot Primary insomnia Prostate cancer Skin cancer Venous (peripheral) insufficiency Past Surgical History (Last Reviewed 04/04/24 @ 10:49 by Leonides Valentine MD) History of radical prostatectomy (~09/2022) Visit Care Team Role Provider Type Sushant Boyle MD Family Provider Physician Primary Care Provider Specialty: Internal Medicine Address: [address] [place] [address], [address], [address] Email: [email or web address] [place] Be DO Attending Provider Non-Staff Referring Provider Specialty: Orthopedics Address: [address] [place] [address], [id number] Email: Physical Therapy Initial Evaluation PT-OP-A Visit Information Start: 12/28/24 15:40 Freq: Status: Active Protocol: Document 12/29/24 09:40 KW (Rec: 12/29/24 14:23 KW Laptop) Out-Patient Physical Therapy Visit Information Visit Information Visit Type Initial Evaluation Visit Start Time 09:00 Visit Stop Time 09:45 Visit Number 1 Evaluation Information Evaluation Date 12/29/24 PT-OP-B Current Condition Start: 12/28/24 15:40 Freq: Status: Active Protocol: Document 12/29/24 09:40 KW (Rec: 12/29/24 14:23 KW Laptop) Current Condition History of Current Condition Onset Date 18 mo ago Current Complaints L knee pain History of Current Condition L knee pain, responding to repeated cortisone injections with ortho and patellar taping and knee brace. Has not been able to golf. Had some PT in [place] after his radical prostatectomy Future Testing and Treatments Planned MRI scheduled in 2 weeks PT-OP-C Subjective Start: 12/28/24 15:40 Freq: Status: Active Protocol: Document 12/29/24 09:40 KW (Rec: 12/29/24 14:23 KW Laptop) Patient Questionnaires Lower Extremity Functional Scale LEFS Impairment 60 to 79% Impaired (Score 17- 31) OP-PT Pain Assessment Pain Assessment Grid Paper Pain Assessment Grid Completed Yes Location L knee Intensity 8 Scale Used Numeric (0 - 10) Description Aching,Burning,Cramping,Dull, Pinching,Pulling,Sharp Frequency Frequent Pain Aggravating Factors Position,ADL's,Activity, Exercise,Standing,Stair Climbing,Bending,Lifting Pain Alleviating Factors Cold,Heat,Medication,Splinting PT-OP-D Balance Start: 12/28/24 15:40 Freq: Status: Active Protocol: Document 12/29/24 09:40 KW (Rec: 12/29/24 14:23 KW Laptop) OP-PT Balance Assessment Standing Balance Static Standing Balance Ability Good Dynamic Standing Balance Ability Good Balance Tests Romberg Romberg neg Tandem Tandem Standing decreased balance with L heel back vs R heel back Young Fall Scale Copyright Permission PT-OP-F Manual Assessment Start: 12/28/24 15:40 Freq: Status: Active Protocol: Document 12/29/24 09:40 KW (Rec: 12/29/24 14:23 KW Laptop) Manual Assessments Soft Tissue Assessment Soft Tissue Mobility Assessment little to no VMO L knee vs mild on R Joint Mobility Assessment Joint Mobility Assessment L patella lateral tilt. Stiffness L > R hip Ir/ER PT-OP-G Mobility & Gait Start: 12/28/24 15:40 Freq: Status: Active Protocol: Document 12/29/24 09:40 KW (Rec: 12/29/24 14:23 KW Laptop) Stair Climbing Evaluation Technique/Endurance Stair Climbing Direction Ascend and Descend Stair Climbing Technique Step Over Step Comments Stair Climbing Comments decreased eccentric control. Too upright PT-OP-J Posture/Palpation/Skin Start: 12/28/24 15:40 Freq: Status: Active Protocol: Document 12/29/24 09:40 KW (Rec: 12/29/24 14:23 KW Laptop) Posture Evaluation Comments Posture Comments wide JACQUES, breath holding patterns adama with transitioning postures. increased WB thru lateral foot vs subtalar neutral Palpation Assessment Location L knee Palpation Findings Muscle Guarding Palpation Details (+) Tender pes anserine PT-OP-K Range of Motion Start: 12/28/24 15:40 Freq: Status: Active Protocol: Document 12/29/24 09:40 KW (Rec: 12/29/24 14:23 KW Laptop) Hip Goniometric Range of Motion Hip left Hip ROM WFL No Testing Position Supine Internal Rotation 5 External Rotation 40 right Hip ROM WFL No Testing Position Supine Internal Rotation 10 External Rotation 40 Knee Goniometric Range of Motion Knee L Knee ROM WFL Yes PT-OP-L Special Tests Start: 12/28/24 15:40 Freq: Status: Active Protocol: Document 12/29/24 09:40 KW (Rec: 12/29/24 14:23 KW Laptop) Special Tests Knee Special Tests Patellar Grind Test Test Results (+) L PT-OP-M Strength Start: 12/28/24 15:40 Freq: Status: Active Protocol: Document 12/29/24 09:40 KW (Rec: 12/29/24 14:23 KW Laptop) Hip Strength Hip Manual Muscle Testing Left Abduction 4- Good- Right Abduction 4- Good- Knee Strength Knee Manual Muscle Testing Left Flexion (S2) 4- Good- Extension (L3) 4- Good- Right Flexion (S2) 4 Good Extension (L3) 4 Good PT-OP-Q Treatments Start: 12/28/24 15:40 Freq: Status: Active Protocol: Document 12/29/24 09:40 KW (Rec: 12/29/24 14:23 KW Laptop) Therapeutic Exercises Supine Exercises LTR with ball Supine Exercise Name supine LTR with ball between knees Side bilateral Equipment Used small blue ball Reps/Minutes 10 Comments cues for breathing bridging with ball Supine Exercise Name bridge with ball between knees Side bilateral Reps/Minutes 10 Comments cues to exhale on lift, tends to hold breath LE strap stretching Supine Exercise Name hamstring stretch Side bilateral Equipment Used gait belt Reps/Minutes 30 sec to 60 sec Comments cues for breathing Standing Exercises gastroc stretch Standing Exercise Name CRISTINA wedge stretch Side bilateral Reps/Minutes 30 sec Therapeutic Activity Therapeutic Activity sit to stand Name sit to stand with ball Reps/Minutes 10 Comments sit to stand with alignment to encourage VMO activation PT-OP-T Assessment and Plan Start: 12/28/24 15:40 Freq: Status: Active Protocol: Document 12/29/24 09:40 KW (Rec: 12/29/24 14:23 KW Laptop) Physical Therapy Assessment Rehab Potential Rehabilitation Potential Excellent Evaluation Complexity Number of Personal Factors/Comorbidities 1-2 Number of Body Systems Impaired 1-2 Clinical Presentation at Evaluation Stable Impairments Impairments Activity Tolerance Goals Four Impairment lack of golf game Snf Goal (LTG) patient returns to playing 9 hold golf LTG Duration 10 weeks Three Impairment LEFS score 62% Short Term Goal (STG) Patient improves LEFS score 50 % STG Duration 6 weeks Two Impairment pain with up/down stairs Short Term Goal (STG) patient no longer has L knee pain with up/down stairs One Impairment lack of VMO quad strength Short Term Goal (STG) pt demonstrates recruitment of VMO for correct sit to stand STG Duration 6 weeks Assessment Summary Assessment pleasant 74 y.o male with L knee pain, 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 patient will benefit from skilled PT to address strength , ROM, balance deficits in order to meet PT goals and return to golf game. Physical Therapy Plan Frequency and Duration Frequency of Treatment 2x/Week Duration of treatment (weeks) 6 Plan of Care Start Date 12/29/24 Plan of Care End Date 02/28/25 Therapeutic Interventions Therapeutic Interventions Aquatic Therapy,Balance Training,Gait Training,Home Exercise Program,Joint Mobilizations,Manual Therapy, Neuromuscular Re-education, Patient/Caregiver Education, Self-Care/Home Management,Soft Tissue Mobilization,Taping, Therapeutic Activities Modalities Cold Pack/Ice Massage,Electric Stimulation,Ultrasound Next Visit Focus/Plan Next Note Type Treatment Note Next Visit Plan cardio warm up LE stretching shuttle for VMO strength start roge kaba
--- NOTE | 2024-12-29 14:23 | PT.OPPOC ---
Physical, Occupational & Speech Therapy At [facility] Current Diagnoses Other disorders of patella, left knee (12/29/24) Unspecified internal derangement of left knee (12/29/24) Visit Care Team Role Provider Type Sushant Boyle MD Family Provider Physician Primary Care Provider Specialty: Internal Medicine Address: [address] [place] [address], [facility] [address], [place], [address] Email: [email or web address] [place] Be DO Attending Provider Non-Staff Referring Provider Specialty: Orthopedics Address: [address] [place] [address], [place], [address] Email: Plan Of Care PT-OP-B Current Condition Start: 12/28/24 15:40 Freq: Status: Active Protocol: Document 12/29/24 09:40 KW (Rec: 12/29/24 14:23 KW Laptop) Current Condition History of Current Condition Onset Date 18 mo ago Current Complaints L knee pain History of Current Condition L knee pain, responding to repeated cortisone injections with ortho and patellar taping and knee brace. Has not been able to golf. Had some PT in [place] after his radical prostatectomy Future Testing and Treatments Planned MRI scheduled in 2 weeks PT-OP-T Assessment and Plan Start: 12/28/24 15:40 Freq: Status: Active Protocol: Document 12/29/24 09:40 KW (Rec: 12/29/24 14:23 KW Laptop) Physical Therapy Assessment Rehab Potential Rehabilitation Potential Excellent Evaluation Complexity Number of Personal Factors/Comorbidities 1-2 Number of Body Systems Impaired 1-2 Clinical Presentation at Evaluation Stable Impairments Impairments Activity Tolerance Goals Four Impairment lack of golf game [employer] Pound Net Or Trap Goal (LTG) patient returns to playing 9 hold golf LTG Duration 10 weeks Three Impairment LEFS score 62% Short Term Goal (STG) Patient improves LEFS score 50 % STG Duration 6 weeks Two Impairment pain with up/down stairs Short Term Goal (STG) patient no longer has L knee pain with up/down stairs One Impairment lack of VMO quad strength Short Term Goal (STG) pt demonstrates recruitment of VMO for correct sit to stand STG Duration 6 weeks Assessment Summary Assessment pleasant 74 y.o male with L knee pain, 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 patient will benefit from skilled PT to address strength , ROM, balance deficits in order to meet PT goals and return to golf game. Physical Therapy Plan Frequency and Duration Frequency of Treatment 2x/Week Duration of treatment (weeks) 6 Plan of Care Start Date 12/29/24 Plan of Care End Date 02/28/25 Therapeutic Interventions Therapeutic Interventions Aquatic Therapy,Balance Training,Gait Training,Home Exercise Program,Joint Mobilizations,Manual Therapy, Neuromuscular Re-education, Patient/Caregiver Education, Self-Care/Home Management,Soft Tissue Mobilization,Taping, Therapeutic Activities Modalities Cold Pack/Ice Massage,Electric Stimulation,Ultrasound Next Visit Focus/Plan Next Note Type Treatment Note Next Visit Plan cardio warm up LE stretching shuttle for VMO strength start band clamshells Plan of Care Dates Plan of Care Start Date 12/29/24 Plan of Care End Date 02/28/25 Electronically Signed by: Racheal Guidry, PT 12/29/24 5414 If you are in agreement with this Plan of Care, please return a signed and dated copy. I have reviewed this Plan of Care and certify that the skilled therapy services above are required to meet the patient?s needs. Physician Signature Date Printed Name and Credentials Clinical Instructor Signature Printed Name and Credentials
--- NOTE | 2025-01-04 17:27 | PT.OTN ---
Current Diagnoses Other disorders of patella, left knee (01/04/25) Unspecified internal derangement of left knee (01/04/25) Physical Therapy Treatment Note PT-OP-A Visit Information Start: 12/28/24 15:40 Freq: Status: Active Protocol: Document 01/04/25 17:20 KW (Rec: 01/04/25 17:27 KW Laptop) Out-Patient Physical Therapy Visit Information Visit Information Visit Type Treatment Note Visit Start Time 15:15 Visit Stop Time 16:00 Visit Number 2 Evaluation Information Evaluation Date 12/29/24 PT-OP-B Current Condition Start: 12/28/24 15:40 Freq: Status: Active Protocol: Document 12/29/24 09:40 KW (Rec: 12/29/24 14:23 KW Laptop) Current Condition History of Current Condition Onset Date 18 mo ago Current Complaints L knee pain History of Current Condition L knee pain, responding to repeated cortisone injections with ortho and patellar taping and knee brace. Has not been able to golf. 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 PT-OP-D Balance Start: 12/28/24 15:40 Freq: Status: Active Protocol: Document 12/29/24 09:40 KW (Rec: 12/29/24 14:23 KW Laptop) OP-PT Balance Assessment Standing Balance Static Standing Balance Ability Good Dynamic Standing Balance Ability Good Balance Tests Romberg Romberg neg Tandem Tandem Standing decreased balance with L heel back vs R heel back Young Fall Scale Copyright Permission PT-OP-F Manual Assessment Start: 12/28/24 15:40 Freq: Status: Active Protocol: Document 12/29/24 09:40 KW (Rec: 12/29/24 14:23 KW Laptop) Manual Assessments Soft Tissue Assessment Soft Tissue Mobility Assessment little to no VMO L knee vs mild on R Joint Mobility Assessment Joint Mobility Assessment L patella lateral tilt. Stiffness L > R hip Ir/ER PT-OP-G Mobility & Gait Start: 12/28/24 15:40 Freq: Status: Active Protocol: Document 12/29/24 09:40 KW (Rec: 12/29/24 14:23 KW Laptop) Stair Climbing Evaluation Technique/Endurance Stair Climbing Direction Ascend and Descend Stair Climbing Technique Step Over Step Comments Stair Climbing Comments decreased eccentric control. Too upright PT-OP-J Posture/Palpation/Skin Start: 12/28/24 15:40 Freq: Status: Active Protocol: Document 12/29/24 09:40 KW (Rec: 12/29/24 14:23 KW Laptop) Posture Evaluation Comments Posture Comments wide JACQUES, breath holding patterns adama with transitioning postures. increased WB thru lateral foot vs subtalar neutral Palpation Assessment Location L knee Palpation Findings Muscle Guarding Palpation Details (+) Tender pes anserine PT-OP-K Range of Motion Start: 12/28/24 15:40 Freq: Status: Active Protocol: Document 12/29/24 09:40 KW (Rec: 12/29/24 14:23 KW Laptop) Hip Goniometric Range of Motion Hip left Hip ROM WFL No Testing Position Supine Internal Rotation 5 External Rotation 40 right Hip ROM WFL No Testing Position Supine Internal Rotation 10 External Rotation 40 Knee Goniometric Range of Motion Knee L Knee ROM WFL Yes PT-OP-L Special Tests Start: 12/28/24 15:40 Freq: Status: Active Protocol: Document 12/29/24 09:40 KW (Rec: 12/29/24 14:23 KW Laptop) Special Tests Knee Special Tests Patellar Grind Test Test Results (+) L PT-OP-M Strength Start: 12/28/24 15:40 Freq: Status: Active Protocol: Document 12/29/24 09:40 KW (Rec: 12/29/24 14:23 KW Laptop) Hip Strength Hip Manual Muscle Testing Left Abduction 4- Good- Right Abduction 4- Good- Knee Strength Knee Manual Muscle Testing Left Flexion (S2) 4- Good- Extension (L3) 4- Good- Right Flexion (S2) 4 Good Extension (L3) 4 Good PT-OP-Q Treatments Start: 12/28/24 15:40 Freq: Status: Active Protocol: Document 01/04/25 17:20 KW (Rec: 01/04/25 17:27 KW Laptop) Cardio Equipment Recumbent Bicycle Duration (Minutes) 6 Resistance 2 Gym Equipment Shuttle Recovery Bilateral Squats Details B LE squats Resistance 37# Reps/Time 10 Unilateral Squats Details single leg Resistance 25# Reps/Time 10 ea Unilateral Heel Raises Details 37# Reps/Time 10 Therapeutic Exercises Supine Exercises SLR medial bias Supine Exercise Name SLR with medial bias Side bilateral Reps/Minutes 2 x 10 Comments cues for exhale LTR with ball Supine Exercise Name supine LTR with ball between knees Side bilateral Equipment Used small blue ball Reps/Minutes 10 Comments cues for breathing bridging with ball Supine Exercise Name bridge with ball between knees Side bilateral Reps/Minutes 10 Comments cues to exhale on lift, tends to hold breath LE strap stretching Supine Exercise Name hamstring stretch Side bilateral Equipment Used gait belt Reps/Minutes 30 sec to 60 sec Comments cues for breathing Standing Exercises gastroc stretch Standing Exercise Name CRISTINA wedge stretch Side bilateral Reps/Minutes 30 sec Therapeutic Activity Therapeutic Activity sit to stand Name sit to stand with ball Reps/Minutes 10 Comments sit to stand with alignment to encourage VMO activation Neuro Re-Education Treatment Movement Re-Education Movement Re-education Activities taping for L patella, lifting of lateral edge PT-OP-T Assessment and Plan Start: 12/28/24 15:40 Freq: Status: Active Protocol: Document 01/04/25 17:20 KW (Rec: 01/04/25 17:27 KW Laptop) Physical Therapy Assessment Goals Four Impairment lack of golf game [facility] Goal (LTG) patient returns to playing 9 hold golf LTG Duration 10 weeks Three Impairment LEFS score 62% Short Term Goal (STG) Patient improves LEFS score 50 % STG Duration 6 weeks Two Impairment pain with up/down stairs Short Term Goal (STG) patient no longer has L knee pain with up/down stairs One Impairment lack of VMO quad strength Short Term Goal (STG) pt demonstrates recruitment of VMO for correct sit to stand STG Duration 6 weeks Assessment Summary Assessment making good gains with better ergonomics, alignment, strength will come along with time Physical Therapy Plan Frequency and Duration Frequency of Treatment 2x/Week Duration of treatment (weeks) 6 Plan of Care Start Date 12/29/24 Plan of Care End Date 02/28/25 Therapeutic Interventions Therapeutic Interventions Aquatic Therapy,Balance Training,Gait Training,Home Exercise Program,Joint Mobilizations,Manual Therapy, Neuromuscular Re-education, Patient/Caregiver Education, Self-Care/Home Management,Soft Tissue Mobilization,Taping, Therapeutic Activities Modalities Cold Pack/Ice Massage,Electric Stimulation,Ultrasound Next Visit Focus/Plan Next Note Type Treatment Note Next Visit Plan cardio warm up LE stretching shuttle for VMO strength start band sendy
--- NOTE | 2025-01-10 10:39 | PT.OTN ---
Current Diagnoses Other disorders of patella, left knee (01/10/25) Unspecified internal derangement of left knee (01/10/25) Physical Therapy Treatment Note PT-OP-A Visit Information Start: 12/28/24 15:40 Freq: Status: Active Protocol: Document 01/10/25 08:47 AB (Rec: 01/10/25 10:39 AB Laptop) Out-Patient Physical Therapy Visit Information Visit Information Visit Type Treatment Note Visit Note Access Code: [email or web address] Visit Start Time 09:50 Visit Stop Time 10:32 Visit Number 3 ( PN due by 01/28/2025) Number of GLORY HOLE TENDER Visits 1 Evaluation Information Evaluation Date 12/29/24 PT-OP-B Current Condition Start: 12/28/24 15:40 Freq: Status: Active Protocol: Document 12/29/24 09:40 KW (Rec: 12/29/24 14:23 KW Laptop) Current Condition History of Current Condition Onset Date 18 mo ago Current Complaints L knee pain History of Current Condition L knee pain, responding to repeated cortisone injections with ortho and patellar taping and knee brace. Has not been able to golf. Had some PT in [place] after his radical prostatectomy Future Testing and Treatments Planned MRI scheduled in 2 weeks PT-OP-C Subjective Start: 12/28/24 15:40 Freq: Status: Active Protocol: Document 01/10/25 08:47 AB (Rec: 01/10/25 10:39 AB Laptop) OP-PT Subjective Patient Comments Patient Comments Patient reports the tape works /helps with pain. Patient reports knee is about the same . PT-OP-D Balance Start: 12/28/24 15:40 Freq: Status: Active Protocol: Document 12/29/24 09:40 KW (Rec: 12/29/24 14:23 KW Laptop) OP-PT Balance Assessment Standing Balance Static Standing Balance Ability Good Dynamic Standing Balance Ability Good Balance Tests Romberg Romberg neg Tandem Tandem Standing decreased balance with L heel back vs R heel back Young Fall Scale Copyright Permission PT-OP-F Manual Assessment Start: 12/28/24 15:40 Freq: Status: Active Protocol: Document 12/29/24 09:40 KW (Rec: 12/29/24 14:23 KW Laptop) Manual Assessments Soft Tissue Assessment Soft Tissue Mobility Assessment little to no VMO L knee vs mild on R Joint Mobility Assessment Joint Mobility Assessment L patella lateral tilt. Stiffness L > R hip Ir/ER PT-OP-G Mobility & Gait Start: 12/28/24 15:40 Freq: Status: Active Protocol: Document 12/29/24 09:40 KW (Rec: 12/29/24 14:23 KW Laptop) Stair Climbing Evaluation Technique/Endurance Stair Climbing Direction Ascend and Descend Stair Climbing Technique Step Over Step Comments Stair Climbing Comments decreased eccentric control. Too upright PT-OP-J Posture/Palpation/Skin Start: 12/28/24 15:40 Freq: Status: Active Protocol: Document 12/29/24 09:40 KW (Rec: 12/29/24 14:23 KW Laptop) Posture Evaluation Comments Posture Comments wide JACQUES, breath holding patterns adama with transitioning postures. increased WB thru lateral foot vs subtalar neutral Palpation Assessment Location L knee Palpation Findings Muscle Guarding Palpation Details (+) Tender pes anserine PT-OP-K Range of Motion Start: 12/28/24 15:40 Freq: Status: Active Protocol: Document 12/29/24 09:40 KW (Rec: 12/29/24 14:23 KW Laptop) Hip Goniometric Range of Motion Hip left Hip ROM WFL No Testing Position Supine Internal Rotation 5 External Rotation 40 right Hip ROM WFL No Testing Position Supine Internal Rotation 10 External Rotation 40 Knee Goniometric Range of Motion Knee L Knee ROM WFL Yes PT-OP-L Special Tests Start: 12/28/24 15:40 Freq: Status: Active Protocol: Document 12/29/24 09:40 KW (Rec: 12/29/24 14:23 KW Laptop) Special Tests Knee Special Tests Patellar Grind Test Test Results (+) L PT-OP-M Strength Start: 12/28/24 15:40 Freq: Status: Active Protocol: Document 12/29/24 09:40 KW (Rec: 12/29/24 14:23 KW Laptop) Hip Strength Hip Manual Muscle Testing Left Abduction 4- Good- Right Abduction 4- Good- Knee Strength Knee Manual Muscle Testing Left Flexion (S2) 4- Good- Extension (L3) 4- Good- Right Flexion (S2) 4 Good Extension (L3) 4 Good PT-OP-Q Treatments Start: 12/28/24 15:40 Freq: Status: Active Protocol: Document 01/10/25 08:47 AB (Rec: 01/10/25 10:39 AB Laptop) Cardio Equipment Recumbent Bicycle Duration (Minutes) 5 Resistance 3 Seat Position 7 Gym Equipment Shuttle Recovery Bilateral Squats Details B LE squats ball between knees ( next session ) Therapeutic Exercises Supine Exercises piriformis stretch Supine Exercise Name from hooklying HEP Reps/Minutes 60 sec each LE Comments verbal cues SLR medial bias Supine Exercise Name SLR with medial bias HEP Side bilateral Reps/Minutes 2X 15 Comments cues for exhale LE strap stretching Supine Exercise Name hamstring stretch Side bilateral Equipment Used gait belt Reps/Minutes 60 X2 Comments cues for breathing Sidelying Exercises clamshell Sidelying Exercise Name HEP Resistance level 2 latex free orange band Reps/Minutes 2 X 15 Comments verbal cues for positioning, initiated without band X 5 ( R LE only Standing Exercises gastroc stretch Standing Exercise Name calf stretches/runner's stretch standing at wall, Soleus and Gastroc HEP Reps/Minutes 60 sec each stretch each LE Comments verbal and visual cues Gait Training Gait Activity sit to stand Distance/Duration X 4 Treatment Focus Pt ed self tactile cues for hip hinge Stair training Description 4 six inch steps X 2 Comments Verbal cues for activating glutes ascending and dec quad dom pattern descending UE use not required first trial, used for cues on hip positioning on second trial. 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 With verbal cues for glute activation ascending stairs reports pain L knee when ascending decreased. Physical Therapy Plan Frequency and Duration Frequency of Treatment 2x/Week Duration of treatment (weeks) 6 Plan of Care Start Date 12/29/24 Plan of Care End Date 02/28/25 Next Visit Focus/Plan Next Note Type Treatment Note Next Visit Plan cardio warm up LE stretching/review as needed shuttle for VMO strength
--- NOTE | 2025-01-12 10:30 | PT.OTN ---
Current Diagnoses Other disorders of patella, left knee (01/12/25) Unspecified internal derangement of left knee (01/12/25) Physical Therapy Treatment Note PT-OP-A Visit Information Start: 12/28/24 15:40 Freq: Status: Active Protocol: Document 01/12/25 09:50 KW (Rec: 01/12/25 09:56 KW Laptop) Out-Patient Physical Therapy Visit Information Visit Information Visit Type Treatment Note Visit Note Access Code: [email or web address] Visit Start Time 09:45 Visit Stop Time 10:30 Visit Number 3 ( PN due by 01/28/2025) Number of BREAKER UNIT ASSEMBLER Visits 1 Evaluation Information Evaluation Date 12/29/24 PT-OP-B Current Condition Start: 12/28/24 15:40 Freq: Status: Active Protocol: Document 12/29/24 09:40 KW (Rec: 12/29/24 14:23 KW Laptop) Current Condition History of Current Condition Onset Date 18 mo ago Current Complaints L knee pain History of Current Condition L knee pain, responding to repeated cortisone injections with ortho and patellar taping and knee brace. Has not been able to golf. Had some PT in [place] after his radical prostate[place] Future Testing and Treatments Planned MRI scheduled in 2 weeks PT-OP-C Subjective Start: 12/28/24 15:40 Freq: Status: Active Protocol: Document 01/12/25 09:50 KW (Rec: 01/12/25 09:56 KW Laptop) OP-PT Subjective Patient Comments Patient Comments had some pain going up stairs this morning OP-PT Pain Assessment Pain Assessment Grid Paper Pain Assessment Grid Completed Yes Location L knee Intensity 7 Scale Used Numeric (0 - 10) Description Aching,Burning,Cramping,Dull, Pinching,Pulling,Sharp Frequency Frequent Pain Aggravating Factors Position,ADL's,Activity, Exercise,Standing,Stair Climbing,Bending,Lifting Pain Alleviating Factors Cold,Heat,Medication,Splinting PT-OP-D Balance Start: 12/28/24 15:40 Freq: Status: Active Protocol: Document 12/29/24 09:40 KW (Rec: 12/29/24 14:23 KW Laptop) OP-PT Balance Assessment Standing Balance Static Standing Balance Ability Good Dynamic Standing Balance Ability Good Balance Tests Romberg Romberg neg Tandem Tandem Standing decreased balance with L heel back vs R heel back Young Fall Scale Copyright Permission PT-OP-F Manual Assessment Start: 12/28/24 15:40 Freq: Status: Active Protocol: Document 12/29/24 09:40 KW (Rec: 12/29/24 14:23 KW Laptop) Manual Assessments Soft Tissue Assessment Soft Tissue Mobility Assessment little to no VMO L knee vs mild on R Joint Mobility Assessment Joint Mobility Assessment L patella lateral tilt. Stiffness L > R hip Ir/ER PT-OP-G Mobility & Gait Start: 12/28/24 15:40 Freq: Status: Active Protocol: Document 12/29/24 09:40 KW (Rec: 12/29/24 14:23 KW Laptop) Stair Climbing Evaluation Technique/Endurance Stair Climbing Direction Ascend and Descend Stair Climbing Technique Step Over Step Comments Stair Climbing Comments decreased eccentric control. Too upright PT-OP-J Posture/Palpation/Skin Start: 12/28/24 15:40 Freq: Status: Active Protocol: Document 12/29/24 09:40 KW (Rec: 12/29/24 14:23 KW Laptop) Posture Evaluation Comments Posture Comments wide JACQUES, breath holding patterns adama with transitioning postures. increased WB thru lateral foot vs subtalar neutral Palpation Assessment Location L knee Palpation Findings Muscle Guarding Palpation Details (+) Tender pes anserine PT-OP-K Range of Motion Start: 12/28/24 15:40 Freq: Status: Active Protocol: Document 12/29/24 09:40 KW (Rec: 12/29/24 14:23 KW Laptop) Hip Goniometric Range of Motion Hip left Hip ROM WFL No Testing Position Supine Internal Rotation 5 External Rotation 40 right Hip ROM WFL No Testing Position Supine Internal Rotation 10 External Rotation 40 Knee Goniometric Range of Motion Knee L Knee ROM WFL Yes PT-OP-L Special Tests Start: 12/28/24 15:40 Freq: Status: Active Protocol: Document 12/29/24 09:40 KW (Rec: 12/29/24 14:23 KW Laptop) Special Tests Knee Special Tests Patellar Grind Test Test Results (+) L PT-OP-M Strength Start: 12/28/24 15:40 Freq: Status: Active Protocol: Document 12/29/24 09:40 KW (Rec: 12/29/24 14:23 KW Laptop) Hip Strength Hip Manual Muscle Testing Left Abduction 4- Good- Right Abduction 4- Good- Knee Strength Knee Manual Muscle Testing Left Flexion (S2) 4- Good- Extension (L3) 4- Good- Right Flexion (S2) 4 Good Extension (L3) 4 Good PT-OP-Q Treatments Start: 12/28/24 15:40 Freq: Status: Active Protocol: Document 01/12/25 09:50 KW (Rec: 01/12/25 09:56 KW Laptop) Cardio Equipment Recumbent Bicycle Duration (Minutes) 5 Resistance 3 Seat Position 7 Gym Equipment Shuttle Recovery Bilateral Squats Details B LE squats ball between knees Therapeutic Exercises Supine Exercises piriformis stretch Supine Exercise Name from hooklying HEP Reps/Minutes 60 sec each LE Comments verbal cues SLR medial bias Supine Exercise Name SLR with medial bias HEP Side bilateral Reps/Minutes 2X 15 Comments cues for exhale LTR with ball Supine Exercise Name supine LTR with ball between knees Side bilateral Equipment Used small blue ball Reps/Minutes 10 Comments cues for breathing LE strap stretching Supine Exercise Name hamstring stretch Side bilateral Equipment Used gait belt Reps/Minutes 60 X2 Comments cues for breathing Sidelying Exercises clamshell Sidelying Exercise Name HEP Resistance level 2 latex free orange band Reps/Minutes 2 X 15 Comments verbal cues for positioning, initiated without band X 5 ( R LE only Standing Exercises gastroc stretch Standing Exercise Name calf stretches/runner's stretch standing at wall, Soleus and Gastroc HEP Reps/Minutes 60 sec each stretch each LE Comments verbal and visual cues Therapeutic Activity Therapeutic Activity sit to stand Name sit to stand with ball Reps/Minutes 10 Comments sit to stand with alignment to encourage VMO activation Gait Training Gait Activity sit to stand Description stair training Neuro Re-Education Treatment Movement Re-Education Movement Re-education Activities taping for L patella, lifting of lateral edge PT-OP-T Assessment and Plan Start: 12/28/24 15:40 Freq: Status: Active Protocol: Document 01/12/25 09:50 KW (Rec: 01/12/25 09:56 KW Laptop) Physical Therapy Assessment Goals Four 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 Goal (LTG) patient returns to playing 9 hold golf LTG Duration 10 weeks Three Impairment LEFS score 62% Short Term Goal (STG) Patient improves LEFS score 50 % STG Duration 6 weeks Two Impairment pain with up/down stairs Short Term Goal (STG) patient no longer has L knee pain with up/down stairs One Impairment lack of VMO quad strength Short Term Goal (STG) pt demonstrates recruitment of VMO for correct sit to stand STG Duration 6 weeks Assessment Summary Assessment pain is zero most of time then spikes to 7-8, resolves immediately Physical Therapy Plan Frequency and Duration Frequency of Treatment 2x/Week Duration of treatment (weeks) 6 Plan of Care Start Date 12/29/24 Plan of Care End Date 02/28/25 Therapeutic Interventions Therapeutic Interventions Aquatic Therapy,Balance Training,Gait Training,Home Exercise Program,Joint Mobilizations,Manual Therapy, Neuromuscular Re-education, Patient/Caregiver Education, Self-Care/Home Management,Soft Tissue Mobilization,Taping, Therapeutic Activities Modalities Cold Pack/Ice Massage,Electric Stimulation,Ultrasound Next Visit Focus/Plan Next Note Type Treatment Note Next Visit Plan cardio warm up LE stretching/review as needed shuttle for VMO strength
--- NOTE | 2025-01-25 09:45 | PT.OTN ---
Current Diagnoses Other disorders of patella, left knee (01/25/25) Unspecified internal derangement of left knee (01/25/25) Physical Therapy Treatment Note PT-OP-A Visit Information Start: 12/28/24 15:40 Freq: Status: Active Protocol: Document 01/25/25 09:08 KW (Rec: 01/25/25 09:45 KW Laptop) Out-Patient Physical Therapy Visit Information Visit Information Visit Type Progress Note Visit Start Time 09:05 Visit Stop Time 09:45 Visit Number 4 Evaluation Information Evaluation Date 12/29/24 PT-OP-B Current Condition Start: 12/28/24 15:40 Freq: Status: Active Protocol: Document 01/25/25 09:08 KW (Rec: 01/25/25 09:45 KW Laptop) Current Condition History of Current Condition Onset Date 18 mo ago Current Complaints L knee pain History of Current L knee pain, responding to repeated cortisone Condition injections with ortho and patellar taping and knee brace. Has not been able to golf. Had some PT in [place] after his radical prostatectomy also ho L ankle sprains in past, ankle will give out on him Future Testing and MRI scheduled in 2 weeks Treatments Planned PT-OP-C Subjective Start: 12/28/24 15:40 Freq: Status: Active Protocol: Document 01/25/25 09:08 KW (Rec: 01/25/25 09:45 KW Laptop) OP-PT Subjective Patient Comments Patient Comments improved pain frequency Patient Questionnaires Lower Extremity Functional Scale LEFS Score 17 LEFS Impairment 60 to 79% Impaired (Score 17-31) OP-PT Pain Assessment Pain Assessment Grid Paper Pain Yes Assessment Grid Completed Location L knee Intensity 4 Scale Used Numeric (0 - 10) Description Aching,Burning,Cramping,Dull,Pinching,Pulling,Sharp Frequency Frequent Pain Aggravating Position,ADL's,Activity,Exercise,Standing,Stair Factors Climbing,Bending,Lifting Pain Alleviating Cold,Heat,Medication,Splinting Factors PT-OP-D Balance Start: 12/28/24 15:40 Freq: Status: Active Protocol: Document 01/25/25 09:08 KW (Rec: 01/25/25 09:45 KW Laptop) OP-PT Balance Assessment Standing Balance Static Standing Good Balance Ability Dynamic Standing Good Balance Ability Young Fall Scale Copyright Permission PT-OP-F Manual Assessment Start: 12/28/24 15:40 Freq: Status: Active Protocol: Document 12/29/24 09:40 KW (Rec: 12/29/24 14:23 KW Laptop) Manual Assessments Soft Tissue Assessment Soft Tissue Mobility little to no VMO L knee vs mild on R Assessment Joint Mobility Assessment Joint Mobility L patella lateral tilt. Assessment Stiffness L > R hip Ir/ER PT-OP-G Mobility & Gait Start: 12/28/24 15:40 Freq: Status: Active Protocol: Document 01/25/25 09:08 KW (Rec: 01/25/25 09:45 KW Laptop) Stair Climbing Evaluation Technique/Endurance Stair Climbing Ascend and Descend Direction Stair Climbing Step Over Step Technique Comments Stair Climbing decreased eccentric control. Too upright, improved Comments alignment PT-OP-J Posture/Palpation/Skin Start: 12/28/24 15:40 Freq: Status: Active Protocol: Document 01/25/25 09:08 KW (Rec: 01/25/25 09:45 KW Laptop) Palpation Assessment Location L knee Palpation Findings None/Normal Palpation Details (+) Tender pes anserine - improved PT-OP-K Range of Motion Start: 12/28/24 15:40 Freq: Status: Active Protocol: Document 01/25/25 09:08 KW (Rec: 01/25/25 09:45 KW Laptop) Hip Goniometric Range of Motion Hip left Hip ROM WFL No Testing Position Supine Internal Rotation 10 External Rotation 50 Knee Goniometric Range of Motion Knee L Knee ROM WFL Yes PT-OP-L Special Tests Start: 12/28/24 15:40 Freq: Status: Active Protocol: Document 01/25/25 09:08 KW (Rec: 01/25/25 09:45 KW Laptop) Special Tests Knee Special Tests Patellar Grind Test Test Results (-) L PT-OP-M Strength Start: 12/28/24 15:40 Freq: Status: Active Protocol: Document 01/25/25 09:08 KW (Rec: 01/25/25 09:45 KW Laptop) Hip Strength Hip Manual Muscle Testing Left Abduction 4 Good Right Abduction 4 Good Knee Strength Knee Manual Muscle Testing Left Flexion (S2) 4 Good Extension (L3) 4 Good PT-OP-Q Treatments Start: 12/28/24 15:40 Freq: Status: Active Protocol: Document 01/25/25 09:08 KW (Rec: 01/25/25 09:45 KW Laptop) Cardio Equipment Recumbent Bicycle Duration (Minutes) 8 Resistance 3 Seat Position 7 Gym Equipment Shuttle Recovery Bilateral Squats Details B LE squats ball between knees Unilateral Squats Details single leg Resistance 50$ Reps/Time 10 ea Unilateral Heel Raises Details 50# Reps/Time 10 Shuttle Balance 1 Details Red Comments ML/AP, wt shifting, head turns Therapeutic Exercises Supine Exercises piriformis stretch Supine Exercise Name from hooklying HEP Reps/Minutes 60 sec each LE Comments verbal cues SLR medial bias Supine Exercise Name SLR with medial bias HEP Side bilateral Reps/Minutes 2X 15 Comments cues for exhale LTR with ball Supine Exercise Name supine LTR with ball between knees Side bilateral Equipment Used small blue ball Reps/Minutes 10 Comments cues for breathing LE strap stretching Supine Exercise Name hamstring stretch Side bilateral Equipment Used gait belt Reps/Minutes 60 X2 Comments cues for breathing Sidelying Exercises clamshell Sidelying Exercise HEP Name Resistance level 2 latex free orange band Reps/Minutes 2 X 15 Comments verbal cues for positioning, initiated without band X 5 ( R LE only Standing Exercises gastroc stretch Standing Exercise calf stretches/runner's stretch standing at wall, Name Soleus and Gastroc HEP Reps/Minutes 60 sec each stretch each LE Comments verbal and visual cues Therapeutic Activity Therapeutic Activity sit to stand Name sit to stand with ball Reps/Minutes 10 Comments sit to stand with alignment to encourage VMO activation Gait Training Gait Activity sit to stand Description stair training Stair training Description 4 six inch steps X 2 Comments Verbal cues for activating glutes ascending and dec quad dom pattern descending UE use not required first trial, used for cues on hip positioning on second trial . - improved Neuro Re-Education Treatment Movement Re-Education Movement Re- taping for L patella, lifting of lateral edge education Activities Self-Care/Home Management Treatment Education Patient Education Home Exercise Program,Joint Protection,Pain Management PT-OP-T Assessment and Plan Start: 12/28/24 15:40 Freq: Status: Active Protocol: Document 01/25/25 09:08 KW (Rec: 01/25/25 09:45 KW Laptop) Physical Therapy Assessment Rehab Potential Rehabilitation Excellent Potential Evaluation Complexity Number of Personal 1-2 Factors/ Comorbidities Number of Body 1-2 Systems Impaired Clinical Stable Presentation at Evaluation Impairments Impairments Activity Tolerance Goals Four Impairment lack of golf game Is Manager Goal (LTG) patient returns to playing 9 hold golf - has not attempted LTG Duration 10 weeks Three Impairment LEFS score 62% Short Term Goal (STG Patient improves LEFS score 50 % - improving ) STG Duration 6 weeks Two Impairment pain with up/down stairs Short Term Goal (STG patient no longer has L knee pain with up/down stairs - ) MET One Impairment lack of VMO quad strength Short Term Goal (STG pt demonstrates recruitment of VMO for correct sit to ) stand- activated, improving STG Duration 6 weeks Assessment Summary Assessment pain is zero most of time then spikes to 7-8, resolves immediately, progressing to meet goals anticipate L ankle instability may be contributing. Taped L calc in neutral and did a heel lock lacing technique to see if that helps support the knee alignment. Physical Therapy Plan Frequency and Duration Frequency of 1x/Week Treatment Duration of 6 treatment (weeks) Plan of Care Start 12/29/24 Date Plan of Care End 02/28/25 Date Therapeutic Interventions Therapeutic Aquatic Therapy,Balance Training,Gait Training,Home Interventions Exercise Program,Joint Mobilizations,Manual Therapy, Neuromuscular Re-education,Patient/Caregiver Education, Self-Care/Home Management,Soft Tissue Mobilization, Taping,Therapeutic Activities Modalities Cold Pack/Ice Massage,Electric Stimulation,Ultrasound Next Visit Focus/Plan Next Note Type Treatment Note Next Visit Plan cardio warm up LE stretching/review as needed shuttle for VMO strength
--- NOTE | 2025-02-15 16:33 | PT.OTN ---
Current Diagnoses Other disorders of patella, left knee (02/15/25) Unspecified internal derangement of left knee (02/15/25) Physical Therapy Treatment Note PT-OP-A Visit Information Start: 12/28/24 15:40 Freq: Status: Active Protocol: Document 02/15/25 16:24 KW (Rec: 02/15/25 16:33 KW Laptop) Out-Patient Physical Therapy Visit Information Visit Information Visit Type Treatment Note Visit Note Primary PT: Plan of Care review with new dates before Visit Start Time 13:00 Visit Stop Time 13:45 Visit Number 5 Evaluation Information Evaluation Date 12/29/24 PT-OP-B Current Condition Start: 12/28/24 15:40 Freq: Status: Active Protocol: Document 01/25/25 09:08 KW (Rec: 01/25/25 09:45 KW Laptop) Current Condition History of Current Condition Onset Date 18 mo ago Current Complaints L knee pain History of Current L knee pain, responding to repeated cortisone Condition injections with ortho and patellar taping and knee brace. Has not been able to golf. Had some PT in [place] after his radical prostatectomy also ho L ankle sprains in past, ankle will give out on him Future Testing and MRI scheduled in 2 weeks Treatments Planned PT-OP-C Subjective Start: 12/28/24 15:40 Freq: Status: Active Protocol: Document 02/15/25 16:24 KW (Rec: 02/15/25 16:33 KW Laptop) OP-PT Subjective Patient Comments Patient Comments wants to increase PT to 2 x week to ramp up intensity of working on pain stopped doing clamshells due to hip pain notes increased L knee pain correlates with L LE swelling. yes, had lymph nodes removed during pelvic CA surgery Patient Questionnaires Lower Extremity Functional Scale LEFS Score 17 LEFS Impairment 60 to 79% Impaired (Score 17-31) OP-PT Pain Assessment Pain Assessment Grid Paper Pain Yes Assessment Grid Completed Location L knee Intensity 2 Scale Used Numeric (0 - 10) Description Aching,Burning,Cramping,Dull,Pinching,Pulling,Sharp Frequency Frequent Pain Aggravating Position,ADL's,Activity,Exercise,Standing,Stair Factors Climbing,Bending,Lifting Pain Alleviating Cold,Heat,Medication,Splinting Factors PT-OP-D Balance Start: 12/28/24 15:40 Freq: Status: Active Protocol: Document 01/25/25 09:08 KW (Rec: 01/25/25 09:45 KW Laptop) OP-PT Balance Assessment Standing Balance Static Standing Good Balance Ability Dynamic Standing Good Balance Ability Young Fall Scale Copyright Permission PT-OP-F Manual Assessment Start: 12/28/24 15:40 Freq: Status: Active Protocol: Document 12/29/24 09:40 KW (Rec: 12/29/24 14:23 KW Laptop) Manual Assessments Soft Tissue Assessment Soft Tissue Mobility little to no VMO L knee vs mild on R Assessment Joint Mobility Assessment Joint Mobility L patella lateral tilt. Assessment Stiffness L > R hip Ir/ER PT-OP-G Mobility & Gait Start: 12/28/24 15:40 Freq: Status: Active Protocol: Document 01/25/25 09:08 KW (Rec: 01/25/25 09:45 KW Laptop) Stair Climbing Evaluation Technique/Endurance Stair Climbing Ascend and Descend Direction Stair Climbing Step Over Step Technique Comments Stair Climbing decreased eccentric control. Too upright, improved Comments alignment PT-OP-J Posture/Palpation/Skin Start: 12/28/24 15:40 Freq: Status: Active Protocol: Document 01/25/25 09:08 KW (Rec: 01/25/25 09:45 KW Laptop) Palpation Assessment Location L knee Palpation Findings None/Normal Palpation Details (+) Tender pes anserine - improved PT-OP-K Range of Motion Start: 12/28/24 15:40 Freq: Status: Active Protocol: Document 01/25/25 09:08 KW (Rec: 01/25/25 09:45 KW Laptop) Hip Goniometric Range of Motion Hip left Hip ROM WFL No Testing Position Supine Internal Rotation 10 External Rotation 50 Knee Goniometric Range of Motion Knee L Knee ROM WFL Yes PT-OP-L Special Tests Start: 12/28/24 15:40 Freq: Status: Active Protocol: Document 01/25/25 09:08 KW (Rec: 01/25/25 09:45 KW Laptop) Special Tests Knee Special Tests Patellar Grind Test Test Results (-) L PT-OP-M Strength Start: 12/28/24 15:40 Freq: Status: Active Protocol: Document 01/25/25 09:08 KW (Rec: 01/25/25 09:45 KW Laptop) Hip Strength Hip Manual Muscle Testing Left Abduction 4 Good Right Abduction 4 Good Knee Strength Knee Manual Muscle Testing Left Flexion (S2) 4 Good Extension (L3) 4 Good PT-OP-Q Treatments Start: 12/28/24 15:40 Freq: Status: Active Protocol: Document 02/15/25 16:24 KW (Rec: 02/15/25 16:33 KW Laptop) Cardio Equipment Recumbent Bicycle Duration (Minutes) 8 Resistance 3 Seat Position 7 Gym Equipment Shuttle Recovery Bilateral Squats Details B LE squats ball between knees Unilateral Squats Details single leg Resistance 50# Reps/Time 2 x 10 ea Unilateral Heel Raises Details 50# Reps/Time 2 x 10 Shuttle Balance 1 Details Red Comments ML/AP, wt shifting, head turns Therapeutic Exercises Supine Exercises piriformis stretch Supine Exercise Name from hooklying HEP Reps/Minutes 60 sec each LE Comments verbal cues SLR medial bias Supine Exercise Name SLR with medial bias HEP Side bilateral Reps/Minutes 2X 15 Comments cues for exhale LTR with ball Supine Exercise Name supine LTR with ball between knees Side bilateral Equipment Used small blue ball Reps/Minutes 10 Comments cues for breathing LE strap stretching Supine Exercise Name hamstring stretch Side bilateral Equipment Used gait belt Reps/Minutes 60 X2 Comments cues for breathing Manual Therapy Treatment Consent Patient gave verbal Yes consent for manual treatment Soft Tissue Mobilization STM L quad Body Location graston tool, STM L Quad, ITB Mobilization Type Cross-Friction,Instrument Assisted,Manual Lymphatic Drainage,Myofascial Release,Oscillations,Rolling,Strain /Counterstrain,Sustained Pressure,Other Comments prone contract relax, opposite foot to floor to stabilize pelvis. Neuro Re-Education Treatment Movement Re-Education Movement Re- taping for L patella, lifting of lateral edge education Activities foam rolling B IT bands Self-Care/Home Management Treatment Education Patient Education Home Exercise Program,Joint Protection,Pain Management Caregiver Education return to foam roller Other Education stop clamshells for now PT-OP-T Assessment and Plan Start: 12/28/24 15:40 Freq: Status: Active Protocol: Document 02/15/25 16:24 KW (Rec: 02/15/25 16:33 KW Laptop) Physical Therapy Assessment Rehab Potential Rehabilitation Excellent Potential Evaluation Complexity Number of Personal 1-2 Factors/ Comorbidities Number of Body 1-2 Systems Impaired Clinical Stable Presentation at Evaluation Impairments Impairments Activity Tolerance Goals Four Impairment lack of golf game Senior Care Goal (LTG) patient returns to playing 9 hold golf - has not attempted LTG Duration 10 weeks Three Impairment LEFS score 62% Short Term Goal (STG Patient improves LEFS score 50 % - improving ) STG Duration 6 weeks Two Impairment pain with up/down stairs Short Term Goal (STG patient no longer has L knee pain with up/down stairs - ) MET One Impairment lack of VMO quad strength Short Term Goal (STG pt demonstrates recruitment of VMO for correct sit to ) stand- activated, improving STG Duration 6 weeks Assessment Summary Assessment agree with plan to increase PT 2 x week to up intensity of ther-ex, manual foam rolling made a (+) difference today as well as Graston, contract relax prone stretching Primary PT to complete POC update at next PT visit Physical Therapy Plan Frequency and Duration Frequency of 2x/Week Treatment Duration of 6 treatment (weeks) Plan of Care Start 12/29/24 Date Plan of Care End 02/28/25 Date Therapeutic Interventions Therapeutic Aquatic Therapy,Balance Training,Gait Training,Home Interventions Exercise Program,Joint Mobilizations,Manual Therapy, Neuromuscular Re-education,Patient/Caregiver Education, Self-Care/Home Management,Soft Tissue Mobilization, Taping,Therapeutic Activities Modalities Cold Pack/Ice Massage,Electric Stimulation,Ultrasound Next Visit Focus/Plan Next Note Type Treatment Note Next Visit Plan cardio warm up LE stretching/review as needed shuttle for VMO strength foam roller graston to LE tape to knee
--- NOTE | 2025-02-21 09:47 | PT.OTN ---
Current Diagnoses Other disorders of patella, left knee (02/21/25) Unspecified internal derangement of left knee (02/21/25) Physical Therapy Treatment Note PT-OP-A Visit Information Start: 12/28/24 15:40 Freq: Status: Active Protocol: Document 02/21/25 09:15 KW (Rec: 02/21/25 09:46 KW Laptop) Out-Patient Physical Therapy Visit Information Visit Information Visit Type Progress Note Visit Start Time 08:15 Visit Stop Time 09:00 Visit Number 02/01 Evaluation Information Evaluation Date 12/29/24 PT-OP-B Current Condition Start: 12/28/24 15:40 Freq: Status: Active Protocol: Document 02/21/25 09:15 KW (Rec: 02/21/25 09:46 KW Laptop) Current Condition History of Current Condition Onset Date 18 mo ago Current Complaints L knee pain History of Current L knee pain, responding to repeated cortisone Condition injections with ortho and patellar taping and knee brace. Has not been able to golf. Had some PT in [place] after his radical prostatectomy also ho L ankle sprains in past, ankle will give out on him PT-OP-C Subjective Start: 12/28/24 15:40 Freq: Status: Active Protocol: Document 02/21/25 09:15 KW (Rec: 02/21/25 09:46 KW Laptop) OP-PT Subjective Patient Comments Patient Comments feels it in knee, daily, but manageable. leg swelling is better in am, worse as day goes. Patient Questionnaires Lower Extremity Functional Scale LEFS Score 49 LEFS Impairment 20 to 39% Impaired (Score 48-62) OP-PT Pain Assessment Pain Assessment Grid Paper Pain Yes Assessment Grid Completed Location L knee Intensity 2 Scale Used Numeric (0 - 10) Description Aching,Burning,Cramping,Dull,Pinching,Pulling,Sharp Frequency Frequent Pain Aggravating Position,ADL's,Activity,Exercise,Standing,Stair Factors Climbing,Bending,Lifting Pain Alleviating Cold,Heat,Medication,Splinting Factors PT-OP-D Balance Start: 12/28/24 15:40 Freq: Status: Active Protocol: Document 02/21/25 09:15 KW (Rec: 02/21/25 09:46 KW Laptop) OP-PT Balance Assessment Standing Balance Static Standing Good Balance Ability Dynamic Standing Good Balance Ability Balance Tests Romberg Romberg neg Tandem Tandem Standing decreased balance with L heel back vs R heel back, impr Young Fall Scale Copyright Permission PT-OP-F Manual Assessment Start: 12/28/24 15:40 Freq: Status: Active Protocol: Document 02/21/25 09:15 KW (Rec: 02/21/25 09:46 KW Laptop) Manual Assessments Soft Tissue Assessment Soft Tissue Mobility improving VMO tone L knee vs mild on R Assessment Joint Mobility Assessment Joint Mobility L patella lateral tilt. Assessment Stiffness L > R hip Ir/ER improved with suction/traction mobilization PT-OP-G Mobility & Gait Start: 12/28/24 15:40 Freq: Status: Active Protocol: Document 02/21/25 09:15 KW (Rec: 02/21/25 09:46 KW Laptop) Stair Climbing Evaluation Comments Stair Climbing improving eccentric control. Too upright, improved Comments alignment post training PT-OP-J Posture/Palpation/Skin Start: 12/28/24 15:40 Freq: Status: Active Protocol: Document 02/21/25 09:15 KW (Rec: 02/21/25 09:46 KW Laptop) Palpation Assessment Location L knee Palpation Findings None/Normal Palpation Details (-) Tender pes anserine - improved PT-OP-K Range of Motion Start: 12/28/24 15:40 Freq: Status: Active Protocol: Document 02/21/25 09:15 KW (Rec: 02/21/25 09:46 KW Laptop) Hip Goniometric Range of Motion Hip left Hip ROM WFL No Testing Position Supine Internal Rotation 15 External Rotation 55 Knee Goniometric Range of Motion Knee L Knee ROM WFL Yes PT-OP-L Special Tests Start: 12/28/24 15:40 Freq: Status: Active Protocol: Document 02/21/25 09:15 KW (Rec: 02/21/25 09:46 KW Laptop) Special Tests Knee Special Tests Patellar Grind Test Test Results (+) L PT-OP-M Strength Start: 12/28/24 15:40 Freq: Status: Active Protocol: Document 02/21/25 09:15 KW (Rec: 02/21/25 09:46 KW Laptop) Hip Strength Hip Manual Muscle Testing Left Abduction 4+ Good+ Right Abduction 4+ Good+ Knee Strength Knee Manual Muscle Testing Left Flexion (S2) 4+ Good+ Extension (L3) 4+ Good+ PT-OP-Q Treatments Start: 12/28/24 15:40 Freq: Status: Active Protocol: Document 02/21/25 09:15 KW (Rec: 02/21/25 09:46 KW Laptop) Cardio Equipment Recumbent Bicycle Duration (Minutes) 8 Resistance 3 Seat Position 7 Gym Equipment Shuttle Recovery Bilateral Squats Details B LE squats ball between knees Unilateral Squats Details single leg Resistance 50# Reps/Time 2 x 10 ea Unilateral Heel Raises Details 50# Reps/Time 2 x 10 Shuttle Balance 1 Details Red Comments ML/AP, wt shifting, head turns Therapeutic Exercises Supine Exercises piriformis stretch Supine Exercise Name from hooklying HEP Reps/Minutes 60 sec each LE Comments verbal cues SLR medial bias Supine Exercise Name SLR with medial bias HEP Side bilateral Reps/Minutes 2X 15 Comments cues for exhale LTR with ball Supine Exercise Name supine LTR with ball between knees Side bilateral Equipment Used small blue ball Reps/Minutes 10 Comments cues for breathing LE strap stretching Supine Exercise Name hamstring stretch Side bilateral Equipment Used gait belt Reps/Minutes 60 X2 Comments cues for breathing Sidelying Exercises clamshell Sidelying Exercise HEP Name Resistance level 2 latex free orange band Reps/Minutes 2 X 15 Comments verbal cues for positioning, initiated without band X 5 ( R LE only Therapeutic Activity Therapeutic Activity sit to stand Name sit to stand with ball Reps/Minutes 10 Comments sit to stand with alignment to encourage VMO activation Manual Therapy Treatment Consent Patient gave verbal Yes consent for manual treatment Soft Tissue Mobilization STM L quad Body Location graston tool, STM L Quad, ITB Mobilization Type Cross-Friction,Instrument Assisted,Manual Lymphatic Drainage,Myofascial Release,Oscillations,Rolling,Strain /Counterstrain,Sustained Pressure,Other Comments prone contract relax, opposite foot to floor to stabilize pelvis. Neuro Re-Education Treatment Movement Re-Education Movement Re- taping for L patella, lifting of lateral edge education Activities foam rolling B IT bands Self-Care/Home Management Treatment Education Patient Education Home Exercise Program,Joint Protection,Pain Management Caregiver Education return to foam roller Other Education stop clamshells for now PT-OP-T Assessment and Plan Start: 12/28/24 15:40 Freq: Status: Active Protocol: Document 02/21/25 09:15 KW (Rec: 02/21/25 09:46 KW Laptop) Physical Therapy Assessment Rehab Potential Rehabilitation Excellent Potential Evaluation Complexity Number of Personal 1-2 Factors/ Comorbidities Number of Body 1-2 Systems Impaired Clinical Stable Presentation at Evaluation Impairments Impairments Activity Tolerance Goals Four Impairment lack of golf game Director Auto Goal (LTG) patient returns to playing 9 hold golf - has not attempted LTG Duration 10 weeks Three Impairment LEFS score 62% Short Term Goal (STG Patient improves LEFS - yes ) STG Duration 6 weeks Two Impairment pain with up/down stairs Short Term Goal (STG patient no longer has L knee pain with up/down stairs - ) MET One Impairment lack of VMO quad strength Short Term Goal (STG pt demonstrates recruitment of VMO for correct sit to ) stand- activated, improving STG Duration 6 weeks Assessment Summary Assessment good relief with manual Rx and taping. Waiting for MRI results. excellent participation and compliance. Recommend con't PT with increased frequency for improved strength results Physical Therapy Plan Frequency and Duration Frequency of 2x/Week Treatment Duration of 6 treatment (weeks) Plan of Care Start 02/21/25 Date Plan of Care End 05/24/25 Date Therapeutic Interventions Therapeutic Aquatic Therapy,Balance Training,Gait Training,Home Interventions Exercise Program,Joint Mobilizations,Manual Therapy, Neuromuscular Re-education,Patient/Caregiver Education, Self-Care/Home Management,Soft Tissue Mobilization, Taping,Therapeutic Activities Modalities Cold Pack/Ice Massage,Electric Stimulation,Ultrasound Next Visit Focus/Plan Next Note Type Treatment Note Next Visit Plan cardio warm up LE stretching/review as needed shuttle for VMO strength foam roller graston and cupping to LE tape to knee
--- NOTE | 2025-02-21 09:47 | PT.OPPOC ---
Physical, Occupational & Speech Therapy At [facility] Current Diagnoses Other disorders of patella, left knee (02/21/25) Unspecified internal derangement of left knee (02/21/25) Visit Care Team Role Provider Type Sushant Boyle MD Family Provider Physician Primary Care Provider Specialty: Internal Medicine Address: [address] [place] [address], [address], [place], [address] Email: [email or web address] [place] Be DO Attending Provider Non-Staff Referring Provider Specialty: Orthopedics Address: [address] [place] [address], [place], [address] Email: Plan Of Care PT-OP-B Current Condition Start: 12/28/24 15:40 Freq: Status: Active Protocol: Document 02/21/25 09:15 KW (Rec: 02/21/25 09:46 KW Laptop) Current Condition History of Current Condition Onset Date 18 mo ago Current Complaints L knee pain History of Current L knee pain, responding to repeated cortisone Condition injections with ortho and patellar taping and knee brace. Has not been able to golf. Had some PT in [place] after his radical prostatectomy also ho L ankle sprains in past, ankle will give out on him PT-OP-T Assessment and Plan Start: 12/28/24 15:40 Freq: Status: Active Protocol: Document 02/21/25 09:15 KW (Rec: 02/21/25 09:46 KW Laptop) Physical Therapy Assessment Rehab Potential Rehabilitation Excellent Potential Evaluation Complexity Number of Personal 1-2 Factors/ Comorbidities Number of Body 1-2 Systems Impaired Clinical Stable Presentation at Evaluation Impairments Impairments Activity Tolerance Goals Four Impairment lack of golf game [facility] Goal (LTG) patient returns to playing 9 hold golf - has not attempted LTG Duration 10 weeks Three Impairment LEFS score 62% Short Term Goal (STG Patient improves LEFS - yes ) STG Duration 6 weeks Two Impairment pain with up/down stairs Short Term Goal (STG patient no longer has L knee pain with up/down stairs - ) MET One Impairment lack of VMO quad strength Short Term Goal (STG pt demonstrates recruitment of VMO for correct sit to ) stand- activated, improving STG Duration 6 weeks Assessment Summary Assessment good relief with manual Rx and taping. Waiting for MRI results. excellent participation and compliance. Recommend con't PT with increased frequency for improved strength results Physical Therapy Plan Frequency and Duration Frequency of 2x/Week Treatment Duration of 6 treatment (weeks) Plan of Care Start 02/21/25 Date Plan of Care End 05/24/25 Date Therapeutic Interventions Therapeutic Aquatic Therapy,Balance Training,Gait Training,Home Interventions Exercise Program,Joint Mobilizations,Manual Therapy, Neuromuscular Re-education,Patient/Caregiver Education, Self-Care/Home Management,Soft Tissue Mobilization, Taping,Therapeutic Activities Modalities Cold Pack/Ice Massage,Electric Stimulation,Ultrasound Next Visit Focus/Plan Next Note Type Treatment Note Next Visit Plan cardio warm up LE stretching/review as needed shuttle for VMO strength foam roller graston and cupping to LE tape to knee Plan of Care Dates Plan of Care Start Date 02/21/25 Plan of Care End Date 05/24/25 Electronically Signed by: Racheal Guidry, PT 02/21/25 0921 If you are in agreement with this Plan of Care, please return a signed and dated copy. I have reviewed this Plan of Care and certify that the skilled therapy services above are required to meet the patient?s needs. Physician Signature Date Printed Name and Credentials Clinical Instructor Signature Printed Name and Credentials
--- NOTE | 2025-02-23 15:55 | PT.OTN ---
Current Diagnoses Other disorders of patella, left knee (02/23/25) Unspecified internal derangement of left knee (02/23/25) Physical Therapy Treatment Note PT-OP-A Visit Information Start: 12/28/24 15:40 Freq: Status: Active Protocol: Document 02/23/25 13:49 AB (Rec: 02/23/25 14:32 AB [id number]) Out-Patient Physical Therapy Visit Information Visit Information Visit Type Treatment Note Visit Start Time 13:50 Visit Stop Time 14:31 Visit Number 03/03 (PN due 03/23/2025) Number of HAND MOLDER Visits 1 Evaluation Information Evaluation Date 12/29/24 PT-OP-B Current Condition Start: 12/28/24 15:40 Freq: Status: Active Protocol: Document 02/21/25 09:15 KW (Rec: 02/21/25 09:46 KW Laptop) Current Condition History of Current Condition Onset Date 18 mo ago Current Complaints L knee pain History of Current L knee pain, responding to repeated cortisone Condition injections with ortho and patellar taping and knee brace. Has not been able to golf. Had some PT in [place] after his radical prostatectomy also ho L ankle sprains in past, ankle will give out on him PT-OP-C Subjective Start: 12/28/24 15:40 Freq: Status: Active Protocol: Document 02/23/25 13:49 AB (Rec: 02/23/25 14:32 AB [id number]) OP-PT Subjective Patient Comments Patient Comments Patient reports he is a little better, was on a step ladder without any increased knee pain and was up and down the ladder a little bit. Patient rates pain 2/10 start of session ambulating into session without device . Patient reports he has a slight meniscus tear and will do a scope if it does get better with PT. PT-OP-D Balance Start: 12/28/24 15:40 Freq: Status: Active Protocol: Document 02/21/25 09:15 KW (Rec: 02/21/25 09:46 KW Laptop) OP-PT Balance Assessment Standing Balance Static Standing Good Balance Ability Dynamic Standing Good Balance Ability Balance Tests Romberg Romberg neg Tandem Tandem Standing decreased balance with L heel back vs R heel back, impr Young Fall Scale Copyright Permission PT-OP-F Manual Assessment Start: 12/28/24 15:40 Freq: Status: Active Protocol: Document 02/21/25 09:15 KW (Rec: 02/21/25 09:46 KW Laptop) Manual Assessments Soft Tissue Assessment Soft Tissue Mobility improving VMO tone L knee vs mild on R Assessment Joint Mobility Assessment Joint Mobility L patella lateral tilt. Assessment Stiffness L > R hip Ir/ER improved with suction/traction mobilization PT-OP-G Mobility & Gait Start: 12/28/24 15:40 Freq: Status: Active Protocol: Document 02/21/25 09:15 KW (Rec: 02/21/25 09:46 KW Laptop) Stair Climbing Evaluation Comments Stair Climbing improving eccentric control. Too upright, improved Comments alignment post training PT-OP-J Posture/Palpation/Skin Start: 12/28/24 15:40 Freq: Status: Active Protocol: Document 02/21/25 09:15 KW (Rec: 02/21/25 09:46 KW Laptop) Palpation Assessment Location L knee Palpation Findings None/Normal Palpation Details (-) Tender pes anserine - improved PT-OP-K Range of Motion Start: 12/28/24 15:40 Freq: Status: Active Protocol: Document 02/21/25 09:15 KW (Rec: 02/21/25 09:46 KW Laptop) Hip Goniometric Range of Motion Hip left Hip ROM WFL No Testing Position Supine Internal Rotation 15 External Rotation 55 Knee Goniometric Range of Motion Knee L Knee ROM WFL Yes PT-OP-L Special Tests Start: 12/28/24 15:40 Freq: Status: Active Protocol: Document 02/21/25 09:15 KW (Rec: 02/21/25 09:46 KW Laptop) Special Tests Knee Special Tests Patellar Grind Test Test Results (+) L PT-OP-M Strength Start: 12/28/24 15:40 Freq: Status: Active Protocol: Document 02/21/25 09:15 KW (Rec: 02/21/25 09:46 KW Laptop) Hip Strength Hip Manual Muscle Testing Left Abduction 4+ Good+ Right Abduction 4+ Good+ Knee Strength Knee Manual Muscle Testing Left Flexion (S2) 4+ Good+ Extension (L3) 4+ Good+ PT-OP-Q Treatments Start: 12/28/24 15:40 Freq: Status: Active Protocol: Document 02/23/25 13:49 AB (Rec: 02/23/25 14:32 AB [id number]) Cardio Equipment Recumbent Bicycle Duration (Minutes) 6 Resistance 4 Seat Position 6 Gym Equipment Shuttle Recovery Bilateral Squats Resistance 100# Reps/Time X 18 Unilateral Squats Details single leg Resistance 50# Reps/Time X 15 each Therapeutic Exercises Supine Exercises Glute med isometric Reps/Minutes one min each LE Comments verbal and visual cues Mod Tom stretch Supine Exercise Name L LE Reps/Minutes one min with AROM knee Comments verbal cues Manual Therapy Treatment Soft Tissue Mobilization STM L quad Body Location IASTM tool and cups STM L Quad, ITB Mobilization Type Cross-Friction,Instrument Assisted,Manual Lymphatic Drainage,Myofascial Release,Oscillations,Rolling,Strain /Counterstrain,Sustained Pressure,Other Comments with knee flexion cupping Taping L knee Treatment Focus unload fat pad and improved tracking mediallly Type of Tape Kinesio Tape Skin Inspection small scrape med knee with dried blood Comments band aid applied to scrape prior to taping PT-OP-T Assessment and Plan Start: 12/28/24 15:40 Freq: Status: Active Protocol: Document 02/23/25 13:49 AB (Rec: 02/23/25 14:32 AB [id number]) Physical Therapy Assessment Goals Four Impairment lack of golf game [employer] Goal (LTG) patient returns to playing 9 hold golf - has not attempted LTG Duration 10 weeks Three Impairment LEFS score 62% Short Term Goal (STG Patient improves LEFS - yes ) STG Duration 6 weeks Two Impairment pain with up/down stairs Short Term Goal (STG patient no longer has L knee pain with up/down stairs - ) MET One Impairment lack of VMO quad strength Short Term Goal (STG pt demonstrates recruitment of VMO for correct sit to ) stand- activated, improving STG Duration 6 weeks Assessment Summary Assessment Patient report having no pain ambulating without device end of session. Physical Therapy Plan Frequency and Duration Frequency of 2x/Week Treatment Duration of 6 treatment (weeks) Plan of Care Start 02/21/25 Date Plan of Care End 05/24/25 Date Next Visit Focus/Plan Next Note Type Treatment Note Next Visit Plan cardio warm up LE stretching/review as needed shuttle for VMO strength foam roller graston and cupping to LE tape to knee
--- NOTE | 2025-03-01 08:30 | PT.OTN ---
Current Diagnoses Other disorders of patella, left knee (03/01/25) Unspecified internal derangement of left knee (03/01/25) Physical Therapy Treatment Note PT-OP-A Visit Information Start: 12/28/24 15:40 Freq: Status: Active Protocol: Document 03/01/25 08:20 KW (Rec: 03/01/25 08:30 KW Laptop) Out-Patient Physical Therapy Visit Information Visit Information Visit Type Treatment Note Visit Start Time 08:15 Visit Stop Time 09:00 Visit Number 04/03 (PN due 03/23/2025) Number of PRINTER MACHINE Visits 1 Evaluation Information Evaluation Date 12/29/24 PT-OP-B Current Condition Start: 12/28/24 15:40 Freq: Status: Active Protocol: Document 02/21/25 09:15 KW (Rec: 02/21/25 09:46 KW Laptop) Current Condition History of Current Condition Onset Date 18 mo ago Current Complaints L knee pain History of Current L knee pain, responding to repeated cortisone Condition injections with ortho and patellar taping and knee brace. Has not been able to golf. Had some PT in [place] after his radical prostatectomy also ho L ankle sprains in past, ankle will give out on him PT-OP-C Subjective Start: 12/28/24 15:40 Freq: Status: Active Protocol: Document 03/01/25 08:20 KW (Rec: 03/01/25 08:30 KW Laptop) OP-PT Subjective Patient Comments Patient Comments overall feeling better OP-PT Pain Assessment Pain Assessment Grid Paper Pain Yes Assessment Grid Completed Location L knee Intensity 2 Scale Used Numeric (0 - 10) Description Aching,Burning,Cramping,Dull,Pinching,Pulling,Sharp Frequency Frequent Pain Aggravating Position,ADL's,Activity,Exercise,Standing,Stair Factors Climbing,Bending,Lifting Pain Alleviating Cold,Heat,Medication,Splinting Factors PT-OP-D Balance Start: 12/28/24 15:40 Freq: Status: Active Protocol: Document 02/21/25 09:15 KW (Rec: 02/21/25 09:46 KW Laptop) OP-PT Balance Assessment Standing Balance Static Standing Good Balance Ability Dynamic Standing Good Balance Ability Balance Tests Romberg Romberg neg Tandem Tandem Standing decreased balance with L heel back vs R heel back, impr Young Fall Scale Copyright Permission PT-OP-F Manual Assessment Start: 12/28/24 15:40 Freq: Status: Active Protocol: Document 02/21/25 09:15 KW (Rec: 02/21/25 09:46 KW Laptop) Manual Assessments Soft Tissue Assessment Soft Tissue Mobility improving VMO tone L knee vs mild on R Assessment Joint Mobility Assessment Joint Mobility L patella lateral tilt. Assessment Stiffness L > R hip Ir/ER improved with suction/traction mobilization PT-OP-G Mobility & Gait Start: 12/28/24 15:40 Freq: Status: Active Protocol: Document 02/21/25 09:15 KW (Rec: 02/21/25 09:46 KW Laptop) Stair Climbing Evaluation Comments Stair Climbing improving eccentric control. Too upright, improved Comments alignment post training PT-OP-J Posture/Palpation/Skin Start: 12/28/24 15:40 Freq: Status: Active Protocol: Document 02/21/25 09:15 KW (Rec: 02/21/25 09:46 KW Laptop) Palpation Assessment Location L knee Palpation Findings None/Normal Palpation Details (-) Tender pes anserine - improved PT-OP-K Range of Motion Start: 12/28/24 15:40 Freq: Status: Active Protocol: Document 02/21/25 09:15 KW (Rec: 02/21/25 09:46 KW Laptop) Hip Goniometric Range of Motion Hip left Hip ROM WFL No Testing Position Supine Internal Rotation 15 External Rotation 55 Knee Goniometric Range of Motion Knee L Knee ROM WFL Yes PT-OP-L Special Tests Start: 12/28/24 15:40 Freq: Status: Active Protocol: Document 02/21/25 09:15 KW (Rec: 02/21/25 09:46 KW Laptop) Special Tests Knee Special Tests Patellar Grind Test Test Results (+) L PT-OP-M Strength Start: 12/28/24 15:40 Freq: Status: Active Protocol: Document 02/21/25 09:15 KW (Rec: 02/21/25 09:46 KW Laptop) Hip Strength Hip Manual Muscle Testing Left Abduction 4+ Good+ Right Abduction 4+ Good+ Knee Strength Knee Manual Muscle Testing Left Flexion (S2) 4+ Good+ Extension (L3) 4+ Good+ PT-OP-Q Treatments Start: 12/28/24 15:40 Freq: Status: Active Protocol: Document 03/01/25 08:20 KW (Rec: 03/01/25 08:30 KW Laptop) Cardio Equipment Recumbent Bicycle Duration (Minutes) 6 Resistance 4 Seat Position 6 Gym Equipment Shuttle Recovery Bilateral Squats Resistance 100# Reps/Time X 18 Unilateral Squats Details single leg Resistance 50# Reps/Time X 15 each Unilateral Heel Raises Details 50# Reps/Time 2 x 10 Shuttle Balance 1 Details Red Comments ML/AP, wt shifting, head turns Therapeutic Exercises Supine Exercises Glute med isometric Reps/Minutes one min each LE Comments verbal and visual cues Mod Tom stretch Supine Exercise Name L LE Reps/Minutes one min with AROM knee Comments verbal cues piriformis stretch Supine Exercise Name from hooklying HEP Reps/Minutes 60 sec each LE Comments verbal cues SLR medial bias Supine Exercise Name SLR with medial bias HEP Side bilateral Reps/Minutes 2X 15 Comments cues for exhale LTR with ball Supine Exercise Name supine LTR with ball between knees Side bilateral Equipment Used small blue ball Reps/Minutes 10 Comments cues for breathing LE strap stretching Supine Exercise Name hamstring stretch Side bilateral Equipment Used gait belt Reps/Minutes 60 X2 Comments cues for breathing Sidelying Exercises clamshell Sidelying Exercise HEP Name Resistance level 2 latex free orange band Reps/Minutes 2 X 15 Comments verbal cues for positioning, initiated without band X 5 ( R LE only Therapeutic Activity Therapeutic Activity sit to stand Name sit to stand with ball Reps/Minutes 10 Comments sit to stand with alignment to encourage VMO activation Manual Therapy Treatment Soft Tissue Mobilization STM L quad Body Location IASTM tool and cups STM L Quad, ITB Mobilization Type Cross-Friction,Instrument Assisted,Manual Lymphatic Drainage,Myofascial Release,Oscillations,Rolling,Strain /Counterstrain,Sustained Pressure,Other Comments with knee flexion cupping Taping L knee Treatment Focus unload fat pad and improved tracking mediallly Type of Tape Kinesio Tape Skin Inspection small scrape med knee with dried blood Comments band aid applied to scrape prior to taping Self-Care/Home Management Treatment Education Patient Education Home Exercise Program,Joint Protection,Pain Management Caregiver Education return to foam roller Other Education stop clamshells for now PT-OP-T Assessment and Plan Start: 12/28/24 15:40 Freq: Status: Active Protocol: Document 03/01/25 08:20 KW (Rec: 03/01/25 08:30 KW Laptop) Physical Therapy Assessment Rehab Potential Rehabilitation Excellent Potential Evaluation Complexity Number of Personal 1-2 Factors/ Comorbidities Number of Body 1-2 Systems Impaired Clinical Stable Presentation at Evaluation Impairments Impairments Activity Tolerance Goals Four Impairment lack of golf game [employer] Goal (LTG) patient returns to playing 9 hold golf - has not attempted LTG Duration 10 weeks Three Impairment LEFS score 62% Short Term Goal (STG Patient improves LEFS - yes ) STG Duration 6 weeks Two Impairment pain with up/down stairs Short Term Goal (STG patient no longer has L knee pain with up/down stairs - ) MET One Impairment lack of VMO quad strength Short Term Goal (STG pt demonstrates recruitment of VMO for correct sit to ) stand- activated, improving STG Duration 6 weeks Assessment Summary Assessment Patient report having no pain ambulating without device end of session. Physical Therapy Plan Frequency and Duration Frequency of 2x/Week Treatment Duration of 6 treatment (weeks) Plan of Care Start 02/21/25 Date Plan of Care End 05/24/25 Date Therapeutic Interventions Therapeutic Aquatic Therapy,Balance Training,Gait Training,Home Interventions Exercise Program,Joint Mobilizations,Manual Therapy, Neuromuscular Re-education,Patient/Caregiver Education, Self-Care/Home Management,Soft Tissue Mobilization, Taping,Therapeutic Activities Modalities Cold Pack/Ice Massage,Electric Stimulation,Ultrasound Next Visit Focus/Plan Next Note Type Treatment Note Next Visit Plan cardio warm up LE stretching/review as needed shuttle for VMO strength foam roller graston and cupping to LE tape to knee
--- NOTE | 2025-03-14 10:55 | PT.OTN ---
Current Diagnoses Other disorders of patella, left knee (03/14/25) Unspecified internal derangement of left knee (03/14/25) Physical Therapy Treatment Note PT-OP-A Visit Information Start: 12/28/24 15:40 Freq: Status: Active Protocol: Document 03/14/25 10:49 KW (Rec: 03/14/25 10:55 KW Laptop) Out-Patient Physical Therapy Visit Information Visit Information Visit Type Treatment Note Visit Start Time 09:45 Visit Stop Time 10:25 Visit Number 05/04 (PN due 03/23/2025) Number of INSURANCE FOLLOW UP REP Visits 1 Evaluation Information Evaluation Date 12/29/24 PT-OP-B Current Condition Start: 12/28/24 15:40 Freq: Status: Active Protocol: Document 02/21/25 09:15 KW (Rec: 02/21/25 09:46 KW Laptop) Current Condition History of Current Condition Onset Date 18 mo ago Current Complaints L knee pain History of Current L knee pain, responding to repeated cortisone Condition injections with ortho and patellar taping and knee brace. Has not been able to golf. Had some PT in [place] after his radical prostatectomy also ho L ankle sprains in past, ankle will give out on him PT-OP-C Subjective Start: 12/28/24 15:40 Freq: Status: Active Protocol: Document 03/14/25 10:49 KW (Rec: 03/14/25 10:55 KW Laptop) OP-PT Subjective Patient Comments Patient Comments overall feeling better off and on. Sometimes its good, sometimes its not Patient Questionnaires Lower Extremity Functional Scale LEFS Score 49 LEFS Impairment 20 to 39% Impaired (Score 48-62) OP-PT Pain Assessment Location L knee Scale Used Numeric (0 - 10) Description Aching,Burning,Cramping,Dull,Pinching,Pulling,Sharp Frequency Frequent Pain Alleviating Cold,Heat,Medication,Splinting Factors Pain Aggravating Position,ADL's,Activity,Exercise,Standing,Stair Factors Climbing,Bending,Lifting PT-OP-D Balance Start: 12/28/24 15:40 Freq: Status: Active Protocol: Document 02/21/25 09:15 KW (Rec: 02/21/25 09:46 KW Laptop) OP-PT Balance Assessment Standing Balance Static Standing Good Balance Ability Dynamic Standing Good Balance Ability Balance Tests Romberg Romberg neg Tandem Tandem Standing decreased balance with L heel back vs R heel back, impr Young Fall Scale Copyright Permission PT-OP-F Manual Assessment Start: 12/28/24 15:40 Freq: Status: Active Protocol: Document 02/21/25 09:15 KW (Rec: 02/21/25 09:46 KW Laptop) Manual Assessments Soft Tissue Assessment Soft Tissue Mobility improving VMO tone L knee vs mild on R Assessment Joint Mobility Assessment Joint Mobility L patella lateral tilt. Assessment Stiffness L > R hip Ir/ER improved with suction/traction mobilization PT-OP-G Mobility & Gait Start: 12/28/24 15:40 Freq: Status: Active Protocol: Document 02/21/25 09:15 KW (Rec: 02/21/25 09:46 KW Laptop) Stair Climbing Evaluation Comments Stair Climbing improving eccentric control. Too upright, improved Comments alignment post training PT-OP-J Posture/Palpation/Skin Start: 12/28/24 15:40 Freq: Status: Active Protocol: Document 02/21/25 09:15 KW (Rec: 02/21/25 09:46 KW Laptop) Palpation Assessment Location L knee Palpation Findings None/Normal Palpation Details (-) Tender pes anserine - improved PT-OP-K Range of Motion Start: 12/28/24 15:40 Freq: Status: Active Protocol: Document 02/21/25 09:15 KW (Rec: 02/21/25 09:46 KW Laptop) Hip Goniometric Range of Motion Hip left Hip ROM WFL No Testing Position Supine Internal Rotation 15 External Rotation 55 Knee Goniometric Range of Motion Knee L Knee ROM WFL Yes PT-OP-L Special Tests Start: 12/28/24 15:40 Freq: Status: Active Protocol: Document 02/21/25 09:15 KW (Rec: 02/21/25 09:46 KW Laptop) Special Tests Knee Special Tests Patellar Grind Test Test Results (+) L PT-OP-M Strength Start: 12/28/24 15:40 Freq: Status: Active Protocol: Document 02/21/25 09:15 KW (Rec: 02/21/25 09:46 KW Laptop) Hip Strength Hip Manual Muscle Testing Left Abduction 4+ Good+ Right Abduction 4+ Good+ Knee Strength Knee Manual Muscle Testing Left Flexion (S2) 4+ Good+ Extension (L3) 4+ Good+ PT-OP-Q Treatments Start: 12/28/24 15:40 Freq: Status: Active Protocol: Document 03/14/25 10:49 KW (Rec: 03/14/25 10:55 KW Laptop) Cardio Equipment Recumbent Bicycle Duration (Minutes) 6 Resistance 4 Seat Position 6 Gym Equipment Shuttle Recovery Bilateral Squats Resistance 100# Reps/Time X 18 Unilateral Squats Details single leg Resistance 50# Reps/Time X 15 each Unilateral Heel Raises Details 50# Reps/Time 2 x 10 Shuttle Balance 1 Details Red Comments ML/AP, wt shifting, head turns Therapeutic Exercises Supine Exercises Glute med isometric Reps/Minutes one min each LE Comments verbal and visual cues Mod Tom stretch Supine Exercise Name L LE Reps/Minutes one min with AROM knee Comments verbal cues piriformis stretch Supine Exercise Name from hooklying HEP Reps/Minutes 60 sec each LE Comments verbal cues SLR medial bias Supine Exercise Name SLR with medial bias HEP Side bilateral Reps/Minutes 2X 15 Comments cues for exhale LTR with ball Supine Exercise Name supine LTR with ball between knees Side bilateral Equipment Used small blue ball Reps/Minutes 10 Comments cues for breathing bridging with ball Supine Exercise Name bridge with ball between knees Side bilateral Reps/Minutes 10 Comments cues to exhale on lift, tends to hold breath LE strap stretching Supine Exercise Name hamstring stretch Side bilateral Equipment Used gait belt Reps/Minutes 60 X2 Comments cues for breathing Sidelying Exercises clamshell Sidelying Exercise HEP Name Resistance level 2 latex free orange band Reps/Minutes 2 X 15 Comments verbal cues for positioning, initiated without band X 5 ( R LE only Standing Exercises gastroc stretch Standing Exercise calf stretches/runner's stretch standing at wall, Name Soleus and Gastroc HEP Reps/Minutes 60 sec each stretch each LE Comments verbal and visual cues Self-Care/Home Management Treatment Education Patient Education Home Exercise Program,Joint Protection,Pain Management Caregiver Education return to foam roller Other Education stop clamshells for now PT-OP-T Assessment and Plan Start: 12/28/24 15:40 Freq: Status: Active Protocol: Document 03/14/25 10:49 KW (Rec: 03/14/25 10:55 KW Laptop) Physical Therapy Assessment Rehab Potential Rehabilitation Excellent Potential Evaluation Complexity Number of Personal 1-2 Factors/ Comorbidities Number of Body 1-2 Systems Impaired Clinical Stable Presentation at Evaluation Impairments Impairments Activity Tolerance Goals Four Impairment lack of golf game Firestopper Installer Goal (LTG) patient returns to playing 9 hold golf - has not attempted LTG Duration 10 weeks Three Impairment LEFS score 62% Short Term Goal (STG Patient improves LEFS - yes ) STG Duration 6 weeks Two Impairment pain with up/down stairs Short Term Goal (STG patient no longer has L knee pain with up/down stairs - ) MET One Impairment lack of VMO quad strength Short Term Goal (STG pt demonstrates recruitment of VMO for correct sit to ) stand- activated, improving STG Duration 6 weeks Assessment Summary Assessment change of ankle alignment on stationary bike was helpful Physical Therapy Plan Frequency and Duration Frequency of 2x/Week Treatment Duration of 6 treatment (weeks) Plan of Care Start 02/21/25 Date Plan of Care End 05/24/25 Date Therapeutic Interventions Therapeutic Aquatic Therapy,Balance Training,Gait Training,Home Interventions Exercise Program,Joint Mobilizations,Manual Therapy, Neuromuscular Re-education,Patient/Caregiver Education, Self-Care/Home Management,Soft Tissue Mobilization, Taping,Therapeutic Activities Modalities Cold Pack/Ice Massage,Electric Stimulation,Ultrasound Next Visit Focus/Plan Next Note Type Treatment Note Next Visit Plan cardio warm up LE stretching/review as needed shuttle for VMO strength foam roller graston and cupping to LE tape to knee
--- NOTE | 2025-03-21 11:47 | PT.OPPN ---
Current Diagnoses Other disorders of patella, left knee (03/21/25) Unspecified internal derangement of left knee (03/21/25) Physical Therapy Progress Note PT OP: Lower Back/Lower Extremity Start: 03/21/25 11:35 Freq: Status: Active Protocol: Document 03/21/25 11:35 KW (Rec: 03/21/25 11:46 KW Laptop) Out-Patient Physical Therapy Visit Information Visit Information Visit Type Progress Note Visit Start Time 11:30 Visit Stop Time 12:10 Visit Number 06/03 Number of BUFFING LINE SET UP WORKER Visits 1 Evaluation Information Evaluation Date 12/29/24 OP-PT Subjective Patient Comments Patient Comments feeling better hasn't needed to use tape has new shoes felt abdominal pain with reverse crunches with ball last week Patient Questionnaires Lower Extremity Functional Scale LEFS Score 70 LEFS Impairment 1 to 19% Impaired (Score 63-79) OP-PT Pain Assessment Location L knee Scale Used Numeric (0 - 10) Description Aching,Burning,Cramping,Dull,Pinching,Pulling,Sharp Frequency Frequent Pain Alleviating Cold,Heat,Medication,Splinting Factors Pain Aggravating Position,ADL's,Activity,Exercise,Standing,Stair Factors Climbing,Bending,Lifting Knee Goniometric Range of Motion Knee Measured in Degrees L Knee ROM WFL Yes Special Tests Knee Special Tests Patellar Grind Test Test Results (-) L Knee Strength Knee Manual Muscle Testing Left Flexion (S2) 4+ Good+ Extension (L3) 4+ Good+ Right Flexion (S2) 4+ Good+ Extension (L3) 4+ Good+ Cardio Equipment Recumbent Bicycle Duration (Minutes) 6 Resistance 4 Seat Position 6 Gym Equipment Shuttle Recovery Bilateral Squats Resistance 100# Reps/Time X 18 Unilateral Squats Details single leg Resistance 75# Reps/Time X 15 each Unilateral Heel Raises Details 50# Reps/Time 2 x 10 Shuttle Balance 1 Details Red Comments ML/AP, wt shifting, head turns Therapeutic Exercises Supine Exercises Glute med isometric Reps/Minutes one min each LE Comments verbal and visual cues Mod Tom stretch Supine Exercise Name L LE Reps/Minutes one min with AROM knee Comments verbal cues piriformis stretch Supine Exercise Name from hooklying HEP Reps/Minutes 60 sec each LE Comments verbal cues SLR medial bias Supine Exercise Name SLR with medial bias HEP Side bilateral Reps/Minutes 2X 15 Comments cues for exhale LTR with ball Supine Exercise Name supine LTR with ball between knees Side bilateral Equipment Used small blue ball Reps/Minutes 10 Comments cues for breathing bridging with ball Supine Exercise Name bridge with ball between knees Side bilateral Reps/Minutes 10 Comments cues to exhale on lift, tends to hold breath LE strap stretching Supine Exercise Name hamstring stretch Side bilateral Equipment Used gait belt Reps/Minutes 60 X2 Comments cues for breathing Sidelying Exercises clamshell Sidelying Exercise HEP Name Resistance level 2 latex free orange band Reps/Minutes 2 X 15 Comments verbal cues for positioning, initiated without band X 5 ( R LE only Standing Exercises gastroc stretch Standing Exercise calf stretches/runner's stretch standing at wall, Name Soleus and Gastroc HEP Reps/Minutes 60 sec each stretch each LE Comments verbal and visual cues Neuro Re-Education Treatment Movement Re-Education Movement Re- heel to toe push off education education Activities Self-Care/Home Management Treatment Education Patient Education Home Exercise Program,Joint Protection,Pain Management Caregiver Education return to foam roller Other Education stop clamshells for now Physical Therapy Assessment Rehab Potential Rehabilitation Excellent Potential Evaluation Complexity Number of Personal 1-2 Factors/ Comorbidities Number of Body 1-2 Systems Impaired Clinical Stable Presentation at Evaluation Impairments Impairments Activity Tolerance Goals Four Impairment lack of golf game Detention Goal (LTG) patient returns to playing 9 hold golf - has not attempted LTG Duration 10 weeks Three Impairment LEFS score 62% Short Term Goal (STG Patient improves LEFS - yes ) STG Duration 6 weeks Two Impairment pain with up/down stairs Short Term Goal (STG patient no longer has L knee pain with up/down stairs - ) MET One Impairment lack of VMO quad strength Short Term Goal (STG pt demonstrates recruitment of VMO for correct sit to ) stand- activated, improving STG Duration 6 weeks Assessment Summary Assessment shoes have made a nice improvement in LE alignment strength has made a nice difference Physical Therapy Plan Frequency and Duration Frequency of 2x/Week Treatment Duration of 6 treatment (weeks) Plan of Care Start 02/21/25 Date Plan of Care End 05/24/25 Date Next Visit Focus/Plan Next Note Type Treatment Note Next Visit Plan cardio warm up LE stretching/review as needed shuttle for VMO strength foam roller graston and cupping to LE tape to knee
--- NOTE | 2025-03-27 10:46 | PT.OTN ---
Current Diagnoses Other disorders of patella, left knee (03/29/25) Unspecified internal derangement of left knee (03/29/25) Physical Therapy Treatment Note PT OP: Lower Back/Lower Extremity Start: 03/21/25 11:35 Freq: Status: Active Protocol: Document 04/12/25 16:35 AB (Rec: 03/27/25 11:33 AB [id number]) Out-Patient Physical Therapy Visit Information Visit Information Visit Type Treatment Note Visit Note Access Code: [email or web address] Visit Start Time 10:48 Visit Stop Time 11:42 Visit Number 07/04 Number of PACKAGE LIFT OPERATOR Visits 1 Progress Note Due 04/20/25 OP-PT Subjective Patient Comments Patient Comments Patient reports he thinks last session was too much as he had right knee pain post previous session and pain persists with ascending stairs. Gym Equipment Shuttle Recovery Bilateral Squats Resistance 75 # Reps/Time X 14 reports burn medial knee at ~10th rep Unilateral Heel Raises Details 37# Reps/Time X 15 reports having no pain Therapeutic Exercises Supine Exercises Mod Tom stretch Supine Exercise Name Bilateral HEP Reps/Minutes one min with AROM knee Comments verbal cues Sidelying Exercises sidelying hip abduction Sidelying Exercise HEP Name Side bilateral Resistance level one latex free Reps/Minutes 15 X2 Comments verbal and tactile cues for trunk and LE position Standing Exercises glute med isometric Standing Exercise HEP Name Reps/Minutes 60 sec each LE Comments verbal and visual cues gastroc stretch Standing Exercise ON stairs this session Soleus and Gastroc HEP calf Name stretch Reps/Minutes 60 sec each stretch each LE X 2 Comments verbal and visual cues Therapeutic Activity Therapeutic Activity stair training Name 6 inch steps X 4 X 3 Comments VC to activate gluteal muscles and for inc hip hinge Manual Therapy Treatment Soft Tissue Mobilization STM L quad Body Location cups STM L Quad hamstring Mobilization Type Cross-Friction,Instrument Assisted,Oscillations,Rolling Comments with knee flexion cupping Physical Therapy Assessment Goals Four Impairment lack of golf game Outside Physical Damage Appraiser Goal (LTG) patient returns to playing 9 hold golf - has not attempted LTG Duration 10 weeks Three Impairment LEFS score 62% Short Term Goal (STG Patient improves LEFS - yes ) STG Duration 6 weeks Two Impairment pain with up/down stairs Short Term Goal (STG patient no longer has L knee pain with up/down stairs - ) MET One Impairment lack of VMO quad strength Short Term Goal (STG pt demonstrates recruitment of VMO for correct sit to ) stand- activated, improving STG Duration 6 weeks Assessment Summary Assessment Decreased [place] to Shuttle recovery persists with discomfort medial L knee on 10th rep bilateral 75# this session. Patient reports pain ascending stairs decreased post manual and ex( except shuttle) on first round of X 4 six inch steps on second trial reports pain is returning ( reciprocal pattern without UE use) Physical Therapy Plan Frequency and Duration Frequency of 2x/Week Treatment Duration of 6 treatment (weeks) Plan of Care Start 02/21/25 Date Plan of Care End 05/24/25 Date Next Visit Focus/Plan Next Note Type Treatment Note Next Visit Plan cardio warm up LE stretching/review as needed shuttle for VMO strength foam roller graston and cupping to LE tape to knee Leg press shuttle with latex free band above knees possibly next session
--- NOTE | 2025-03-29 11:52 | PT.OPDS ---
Current Diagnoses Other disorders of patella, left knee (03/29/25) Unspecified internal derangement of left knee (03/29/25) Visit Care Team Role Provider Type Sushant Byole MD Family Provider Physician Primary Care Provider Specialty: Internal Medicine Address: [address] [place] [address], [address], [address] Email: [email or web address] Be DO Attending Provider Non-Staff Referring Provider Specialty: Orthopedics Address: [address] [place] [address], [id number] Email: Visit Number Visit Number 08/03 Discharge Summary PT OP: Lower Back/Lower Extremity Start: 03/21/25 11:35 Freq: Status: Active Protocol: Document 03/29/25 11:40 KW (Rec: 03/29/25 11:52 KW Laptop) Out-Patient Physical Therapy Visit Information Visit Information Visit Type Discharge Summary Visit Start Time 11:30 Visit Stop Time 12:10 Visit Number 08/03 OP-PT Subjective Patient Comments Patient Comments feels ready to DC to HEP R and L knee hurt intermittently Cardio Equipment Recumbent Bicycle Duration (Minutes) 6 Resistance 4 Seat Position 6 Therapeutic Exercises Supine Exercises Glute med isometric Reps/Minutes one min each LE Comments verbal and visual cues Mod Tom stretch Supine Exercise Name Bilateral HEP Reps/Minutes one min with AROM knee Comments verbal cues piriformis stretch Supine Exercise Name from hooklying HEP Reps/Minutes 60 sec each LE Comments verbal cues SLR medial bias Supine Exercise Name SLR with medial bias HEP Side bilateral Reps/Minutes 2X 15 Comments cues for exhale LTR with ball Supine Exercise Name supine LTR with ball between knees Side bilateral Equipment Used small blue ball Reps/Minutes 10 Comments cues for breathing bridging with ball Supine Exercise Name bridge with ball between knees Side bilateral Reps/Minutes 10 Comments cues to exhale on lift, tends to hold breath LE strap stretching Supine Exercise Name hamstring stretch Side bilateral Equipment Used gait belt Reps/Minutes 60 X2 Comments cues for breathing Sidelying Exercises sidelying hip abduction Sidelying Exercise HEP Name Side bilateral Resistance level one latex free Reps/Minutes 15 X2 Comments verbal and tactile cues for trunk and LE position clamshell Sidelying Exercise HEP Name Resistance level 2 latex free orange band Reps/Minutes 2 X 15 Comments verbal cues for positioning, initiated without band X 5 ( R LE only Standing Exercises glute med isometric Standing Exercise HEP Name Reps/Minutes 60 sec each LE Comments verbal and visual cues gastroc stretch Standing Exercise ON stairs this session Soleus and Gastroc HEP calf Name stretch Reps/Minutes 60 sec each stretch each LE X 2 Comments verbal and visual cues Neuro Re-Education Treatment Movement Re-Education Movement Re- heel to toe push off education education Activities Physical Therapy Assessment Rehab Potential Rehabilitation Excellent Potential Goals Four Impairment lack of golf game Drier And Pulverizer Tender Goal (LTG) patient returns to playing 9 hold golf - has not attempted LTG Duration 10 weeks Three Impairment LEFS score 62% Short Term Goal (STG Patient improves LEFS - yes ) STG Duration 6 weeks Two Impairment pain with up/down stairs Short Term Goal (STG patient no longer has L knee pain with up/down stairs - ) MET One Impairment lack of VMO quad strength Short Term Goal (STG pt demonstrates recruitment of VMO for correct sit to ) stand- activated, improving STG Duration 6 weeks Assessment Summary Assessment progressed thru PT sessions with some improved strength , balance, alignment, motor control appropriate to DC to HEP< gym. Physical Therapy Plan Discharge Physical Therapy Discharge Reasons Plateau in Progress
== END 2025-01-26 12:42 | disposition home or self-care (01) ==
LOC: PHYS 09:00
PROVIDERS: Family Provider Internal Medicine; PCP Internal Medicine; Referring Provider Orthopaedic Surgery; Visit Provider Orthopaedic Surgery
DX: M23.92 Unspecified internal derangement of left knee (principal); M22.8X2 Other disorders of patella, left knee
CPT/HCPCS: 97110; 97112; 97116; 97161; 97530

== ENCOUNTER → 2025-02-14 10:03 | Outpatient (CLI) | payer MEDICARE, OTHER, SELFPAY ==
[2025-02-14 11:13] LABS: Alanine Aminotransferase 22 IU/L (<50); Albumin 4.4 g/dL (3.5-5.0); Albumin Globulin Ratio 2.2 (1.0-2.8); Alkaline Phosphatase 64 U/L (38-126); Blood Urea Nitrogen 18 mg/dL (9-20); Calcium 9.0 mg/dL (8.4-10.2); Carbon Dioxide 24 mmol/L (22-32); Chloride 106 mmol/L (98-107); Cholesterol 137 mg/dL (140-199); Estimated Glomerular Filt Rate > 60 mL/min (>60); Globulin 2.0 g/dL (1.7-4.1); Glucose 95 mg/dL (70-99); HDL Cholesterol 64 mg/dL (40-60); HEMOLYSIS < 15 (0-50); Potassium 4.2 mmol/L (3.4-5.1); Sodium 137 mmol/L (137-145); Total Protein 6.4 g/dL (6.3-8.2); Triglycerides 94 mg/dL (35-150)
== END ==
PROVIDERS: PCP Internal Medicine; Referring Provider Internal Medicine; Visit Provider Internal Medicine
DX: I10 Essential (primary) hypertension (principal); E78.2 Mixed hyperlipidemia
CPT/HCPCS: 36415; 80053; 80061